=== PATIENT | female | born 1990 | race Caucasian/White ===

== ENCOUNTER 2017-03-05 12:26 | Emergency (ER) | payer MEDICAID, SELFPAY ==
[2017-03-05 13:08] VITALS: BP 106/64; PULSE 101; RESP 16; TEMP 36.9; O2SAT 98; BMI 18.8
[2017-03-05 13:29] LABS: UTC Influenza A Antigen Negative (Negative); UTC Influenza B Antigen Negative (Negative)
[2017-03-05 13:30] LABS: UTC Strep Screen (Rapid) Negative (Negative)
--- NOTE | 2017-03-05 14:18 | HMH.EDUTC ---
[facility] [place]ression: Influenza-like illness Disposition: Home, Self-Care Condition on Discharge: Good Instructions: DI for Influenza -- Adult Additional Instructions: * No sign of bacterial infection. Likely viral. Virus can take 7-14 days to run their course. Sound like the onset of the flu. False negative tests can happen initially. your exam is consistent with the flu but also with other upper resp symptoms. * Lots of rest * warm salt water gargles * warm fluids * sore throat lozenges * sleep elevated * humidifier/vaporizer * Increase fluids, water, gatorade, powerade, pedialyte if /toddler/child * Monitor Temp. Tylenol every 4 hours as needed no more then 5 times a day or 4000mg in 24 hours and/or ibuprofen every 6 hours as needed no more then 3200mg in 24 hours (as long as your primary care doctor has told you that it is ok to take both) for fever/aches/pain. ER if fever no less than 101 despite tylenol and Ibuprofen * You (or your child) are contagious until no fever, aches, chills x 24 hours without medication for symptoms. * * Per hospital policy, Your throat swab was sent for culture. Those results are typically sent to your primary care. Be sure to follow up in 2-3 days if no improvement so they can review those results and treat if necessary. If you don't have primary care, I recommend you get one but in the mean time, you will have to return to a walk in clinic. Follow up with primary care IMMEDIATELY for new or worsening symptoms, improvement followed by suddenly feeling worse OR no noticeable improvement over the next 48-72 hours. 911 for difficulty breathing Time of Disposition: 14:24 Medical Decision Making Vital Signs: 03/05/17 13:08 Temperature 98.4 F Temperature Source Oral Pulse Rate [Right Brachial] 101 H Respiratory Rate 16 Blood Pressure [Right Arm] 106/64 Blood Pressure Mean [Right Arm] 78 Blood Pressure Source [Right Arm] Automatic Cuff Blood Pressure Position [Right Arm] Supine 02 Sat by Pulse Oximetry 98 Oxygen Delivery Method Room Air - Lab Data Lab results reviewed: Yes: I reviewed the patient's lab results. Lab Results 03/05/17 12:49: Influenza Type A Ag Negative, Influenza Type B Ag Negative 03/05/17 13:25: Strep Scn Rapid Clinic Negative Orders (Tests/Meds): ORDERS Category Date Time Status Strep Screen Confirmation Stat Micro 03/05/17 13:25 Received - Quentin Inquiry Pt receiving controlled substance: No [facility] [place] - General Stated complaint: Body aches,hurts to breath Time Seen by Provider: 03/05/17 14:00 Mode of Arrival: Family Vehicle Source of Information: Patient Limitations: No Limitations Description of Symptoms (Recalled from Triage Doc. by RN): c/o bodyaches, pain with swallowing, and pain with breathing HEENT Symptoms (Recalled from RN notes): Yes (pain with swallowing) Resp Symptoms (Recalled from RN notes): Yes (pain with breathing) Skin Symptoms (Recalled from RN notes): No MS Symptoms (Recalled from RN notes): Yes (bodyaches) Functional Status (Recalled from RN notes): n/a - History of Present Illness Provider Complaint: c/o low grade fevre, bodyaches, rhinorrhea since yesterday. No known sick contacts. Has not had flu vaccine. No cough. Nyquil last night helped. - Related Data Allergies Allergy/AdvReac Type Severity Reaction Status Date / Time watermelon [WATERMELON] Allergy Unknown Unverified 02/08/17 15:39 - Worker's Comp Is this a Worker's Comp case?: No [facility] [place] History Medical History: Reports:: Asthma Denies:: Cancer, Diabetes Mellitus Type 1, Diabetes Mellitus Type 2, Hypertension, MRSA Comment: depression Amputation: No Fractures: No Comment: hernia, tubal ligation - *Social History Smoking Status: Never smoker Alcohol Intake: never - Psychiatric History Expresses thoughts of harming self/others: None Suicide Plan Description: No Plan ROS Obtained: Yes Systems reviewed as appropriate &
--- NOTE | 2017-03-05 14:21 | ED_ITS ---
[facility] [place] Disposition Clinical Impression: Influenza-like illness Disposition: Home, Self-Care Condition on Discharge: Good Instructions: DI for Influenza -- Adult Additional Instructions: * No sign of bacterial infection. Likely viral. Virus can take 7-14 days to run their course. Sound like the onset of the flu. False negative tests can happen initially. your exam is consistent with the flu but also with other upper resp symptoms. * Lots of rest * warm salt water gargles * warm fluids * sore throat lozenges * sleep elevated * humidifier/vaporizer * Increase fluids, water, gatorade, powerade, pedialyte if /toddler/child * Monitor Temp. Tylenol every 4 hours as needed no more then 5 times a day or 4000mg in 24 hours and/or ibuprofen every 6 hours as needed no more then 3200mg in 24 hours (as long as your primary care doctor has told you that it is ok to take both) for fever/aches/pain. ER if fever no less than 101 despite tylenol and Ibuprofen * You (or your child) are contagious until no fever, aches, chills x 24 hours without medication for symptoms. * * Per hospital policy, Your throat swab was sent for culture. Those results are typically sent to your primary care. Be sure to follow up in 2-3 days if no improvement so they can review those results and treat if necessary. If you don' t have primary care, I recommend you get one but in the mean time, you will have to return to a walk in clinic. Follow up with primary care IMMEDIATELY for new or worsening symptoms, improvement followed by suddenly feeling worse OR no noticeable improvement over the next 48-72 hours. 911 for difficulty breathing Time of Disposition: 14:24 Medical Decision Making Vital Signs: 03/05/17 13:08 Temperature 98.4 F Temperature Source Oral Pulse Rate [Right Brachial] 101 H Respiratory Rate 16 Blood Pressure [Right Arm] 106/64 Blood Pressure Mean [Right Arm] 78 Blood Pressure Source [Right Arm] Automatic Cuff Blood Pressure Position [Right Arm] Supine 02 Sat by Pulse Oximetry 98 Oxygen Delivery Method Room Air - Lab Data Lab results reviewed: Yes: I reviewed the patient's lab results. Lab Results 03/05/17 12:49: Influenza Type A Ag Negative, Influenza Type B Ag Negative 03/05/17 13:25: Strep Scn Rapid Clinic Negative Orders (Tests/Meds): ORDERS Category Date Time Status Strep Screen Confirmation Stat Micro 03/05/17 13:25 Received - Quentin Inquiry Pt receiving controlled substance: No [facility] [place] HPI - General Stated complaint: Body aches,hurts to breath Time Seen by Provider: 03/05/17 14:00 Mode of Arrival: Family Vehicle Source of Information: Patient Limitations: No Limitations Description of Symptoms (Recalled from Triage Doc. by RN): c/o bodyaches, pain with swallowing, and pain with breathing HEENT Symptoms (Recalled from RN notes): Yes (pain with swallowing) Resp Symptoms (Recalled from RN notes): Yes (pain with breathing) Skin Symptoms (Recalled from RN notes): No MS Symptoms (Recalled from RN notes): Yes (bodyaches) Functional Status (Recalled from RN notes): n/a - History of Present Illness Provider Complaint: c/o low grade fevre, bodyaches, rhinorrhea since yesterday. No known sick contacts. Has not had flu vaccine. No cough. Nyquil last night helped. - Related Data Allergies Allergy/AdvReac Type Severity Reaction Status Date / Time watermelon [WATERMELON] Allergy Unkno
[2017-03-05 14:57] VITALS: BP 106/64; PULSE 101; RESP 16; TEMP 36.9; O2SAT 98
== END 2017-03-05 14:59 | disposition home or self-care (01) ==
PROVIDERS: Emergency Provider Nurse Practitioner Family; Family Provider Physician Assistant
DX: J10.1 Influenza due to other identified influenza virus with other respiratory manifestations (principal)
CPT/HCPCS: 87804; 87880; 99202

== ENCOUNTER → 2017-09-20 11:51 | Outpatient (REF) | payer MEDICAID, SELFPAY ==
[2017-09-20 13:59] LABS: Basophils % 0.5 % (0.1-2.0); Eosinophils # 0.1 K/mm3 (0.0-0.4); Hematocrit 43.6 % (37.0-47.0); Hemoglobin 14.4 g/dL (12.2-16.2); Lymphocytes # 2.3 K/mm3 (0.7-4.5); Lymphocytes % 35.4 K/mm3 (10-50); Mean Corpuscular Hemoglobin 27.1 pg (27.0-31.2); Mean Platelet Volume 9.1 fl (7.4-10.4); Monocytes # 0.3 K/mm3 (0.1-1.0); Monocytes % 3.9 % (1.7-9.3); Neutrophils # 3.8 K/mm3 (1.8-7.8); Neutrophils % 58.2 % (37.0-80.0); Platelet Count 204 K/mm3 (142-424); Red Blood Count 5.32 M/mm3 (4.20-5.40); Red Cell Distribution Width 13.9 % (11.5-17.5); White Blood Count 6.5 K/mm3 (4.8-10.8)
[2017-09-20 16:09] LABS: Alanine Aminotransferase 22 U/L (12-78); Albumin Level 4.2 gm/dL (3.4-5.0); Albumin/Globulin Ratio 1.2 (1.1-1.8); Alkaline Phosphatase 70 U/L (46-116); Anion Gap 13.2 mEq/L (5-15); Aspartate Amino Transferase 12 U/L (15-37); Bilirubin,Total 0.7 mg/dL (0.2-1.0); Blood Urea Nitrogen 5 mg/dL (7-18); Calcium 9.6 mg/dL (8.5-10.1); Carbon Dioxide 27 mmol/L (21.0-32.0); Chloride 106 mmol/L (98-107); Chol/HDL Ratio 2.1 (1-3.5); Cholesterol 142 mg/dL (140-200); Creatinine,Serum 0.64 mg/dL (0.55-1.02); Estimated Glomerular Filt Rate 113 ml/min (>60); GFR (African American) 137 ML/MIN (>60); Globulin 3.6 gm/dl (1.3-3.2); Glucose 75 mg/dL (74-106); HDL Cholesterol 67 mg/dL (29-89); LDL Cholesterol 67 mg/dL (0-130); Potassium 4.2 mmoL/L (3.5-5.1); Sodium 142 mmol/L (136-145); T4 (Thyroxine) 8.8 ug/dl (4.7-13.3); Thyroid Stimulating Hormone 1.25 uIU/ml (0.358-3.740); Total Protein,Serum 7.8 gm/dL (6.4-8.2); Triglycerides 39 mg/dL (30-200); VLDL Cholesterol 8 mg/dL (0-40)
[2017-09-21 17:13] LABS: Vitamin D 25 Hydroxy 53.7 ng/mL (30.0-100.0)
== END ==
LOC: LAB 11:51
PROVIDERS: Visit Provider Nurse Practitioner Family
DX: R53.1 Weakness (principal); R53.83 Other fatigue; R11.2 Nausea with vomiting, unspecified; J30.1 Allergic rhinitis due to pollen
CPT/HCPCS: 80053; 80061; 82652; 84436; 84443; 85025

== ENCOUNTER → 2017-12-29 15:12 | Outpatient (CLI) | payer MEDICAID, SELFPAY ==
[2017-12-31 09:16] LABS: Hep A Ab, IgM Negative (Negative); Hepatitis B Core Antibody IgM Negative (Negative); Hepatitis B Surface Antigen Negative (Negative)
[2017-12-31 12:14] LABS: Hepatitis C Antibody 0.2 s/co ratio (0.0-0.9)
== END ==
PROVIDERS: Visit Provider Emergency Medicine
DX: Z20.5 Contact with and (suspected) exposure to viral hepatitis (principal)
CPT/HCPCS: 36415; 80074

== ENCOUNTER 2019-07-05 03:05 | Emergency (ER) | payer OTHER, SELFPAY ==
[2019-07-05 02:57] VITALS: BP 101/63; PULSE 101; RESP 13; TEMP 37; O2SAT 100; BMI 17.6
--- NOTE | 2019-07-05 03:08 | CT_ITS ---
PROCEDURE: CT ABDOMEN PELVIS W CON CLINICAL INDICATION: n/v/d Nausea, vomiting, diarrhea COMPARISON: ABDPELWW CT abdomen pelvis wo/w con from 07/08/2018 TECHNIQUE: IV Contrast: 75ML OPTIRAY 350 Oral Contrast none Axial images obtained with sagittal and coronal reformats. All CT scans at the facility use one or more dose reduction, viz: automated exposure control, ma/kV adjustment per patient size (including targeted exams where dose is matched to indication, i.e. head), or iterative reconstruction technique. FINDINGS: LOWER THORAX: No acute finding ABDOMEN & PELVIS: The liver, spleen, adrenal glands, pancreas, gallbladder, and kidneys have an unremarkable appearance. There is a small cortical hypodensity of the left kidney anteriorly may be due to small cyst. Fluid-filled small and large bowel loops are present with a few scattered air-fluid levels. No free air. The appendix is not clearly delineated. The the uterus is bulky with prominent hypodensity of the endometrium. There may be a small left ovarian cyst at 1.5 cm. There is a small amount fluid in the pelvis. No acute bony anomalies. IMPRESSION: 1. Fluid-filled small and large bowel loops with scattered air-fluid levels which may be due to enterocolitis or ileus and may also be seen with diarrhea disease. 2. Bulky uterus with prominent endometrium and a small amount fluid in the cul-de-sac. Consider ultrasound for further evaluation. Dictated by: Salva Noble MD 07/05/2019 06:25 Electronically signed by Slava Noble MD in [place] 07/05/2019 06:25
--- NOTE | 2019-07-05 03:08 | PC.NURSE ---
pt ambulated to the bathroom independently
--- NOTE | 2019-07-05 03:09 | CT_ITS ---
PROCEDURE: CT HEAD/BRAIN WO CON CLINICAL INDICATION: fall Head injury with pain, fall with injury and pain with nausea and vomiting COMPARISON: HDWO CT HEAD W/O CONTRAST from 02/13/2015 TECHNIQUE: Axial images obtained. All CT scans at the facility use one or more dose reduction, viz: automated exposure control, ma/kV adjustment per patient size (including targeted exams where dose is matched to indication, i.e. head), or iterative reconstruction technique. FINDINGS: No midline shift, mass effect, intracranial hemorrhage, hydrocephalus, or extra-axial fluid collection is evident. The calvarium has an unremarkable appearance. No mastoid effusion. Mild mucosal thickening is present in the left aspect of the sphenoid sinus IMPRESSION: No acute intracranial finding Dictated by: Slava Noble MD 07/05/2019 06:17 Electronically signed by Slava Noble MD in [place] 07/05/2019 06:17
--- NOTE | 2019-07-05 03:10 | CT_ITS ---
PROCEDURE: CT CERVICAL SPINE WO CON CLINICAL INDICATION: fell and hit head Neck pain following injury COMPARISON: No exams were available for comparison TECHNIQUE: Axial images obtained with sagittal and coronal reformats. All CT scans at the facility use one or more dose reduction, viz: automated exposure control, ma/kV adjustment per patient size (including targeted exams where dose is matched to indication, i.e. head), or iterative reconstruction technique. Axial spiral CT scanning performed of the cervical spine beginning at the base of the skull and continuing to the upper T-spine. 3-D multiplanar reconstruction with 3-D manipulation of volumetric data set in image rendering was completed by the radiologist and/or technologist with the supervision of the radiologist on independent workstation. FINDINGS: There is normal alignment. There is mild cervical curvature convex right. Degenerative disc disease is present at C5-C6. No acute fracture or dislocation. Lung apices are clear IMPRESSION: No acute finding Degenerative changes C5-C6 with cervical curvature convex right Dictated by: Slava Noble MD 07/05/2019 06:19 Electronically signed by Slava Noble MD in [place] 07/05/2019 06:19
[2019-07-05 03:20] LABS: Microscopic, Urine URINE MICROSCOPIC (MICROSCOPIC)
[2019-07-05 03:20] LABS: Basophils # 0.2 K/mm3 (0-0.2); Basophils % 0.6 % (0.1-2.0); Eosinophils # 0.4 K/mm3 (0.0-0.4); Eosinophils % 1.5 % (0.1-12.0); Hematocrit 46.4 % (37.0-47.0); Hemoglobin 15.6 g/dL (12.2-16.2); Lymphocytes # 2.9 K/mm3 (0.7-4.5); Lymphocytes % 10.5 % (10-50); Mean Corpuscular HGB Conc 33.7 g/dL (31.8-35.4); Mean Corpuscular Hemoglobin 28.4 pg (27.0-31.2); Mean Corpuscular Volume 84.1 fl (81-99); Mean Platelet Volume 9.4 fl (7.4-10.4); Monocytes # 1.4 K/mm3 (0.1-1.0); Monocytes % 5.1 % (1.7-9.3); Neutrophils # 23.1 K/mm3 (1.8-7.8); Neutrophils % 82.4 % (37.0-80.0); Platelet Count 274 K/mm3 (142-424); Red Blood Count 5.52 M/mm3 (4.20-5.40); Red Cell Distribution Width 13.3 % (11.5-17.5)
[2019-07-05 03:23] LABS: Appearance,Urine CLEAR (Clear); Bilirubin,Urine Negative (Negative); Blood, Urine Negative (Negative); Color,Urine YELLOW (Yellow); Glucose,Urine (UA) Negative (Negative); Ketones,Urine Negative (Negative); Leukocyte Esterase,Urine TRACE (Negative); Nitrate,Urine Negative (Negative); Protein,Urine Negative (Negative); Urobilinogen,Urine 0.2 EU/dl (0.2)
[2019-07-05 03:24] LABS: MANUAL DIFFERENTIAL MANUAL DIFFERENTIAL (MANUAL DIFF)
[2019-07-05 03:25] LABS: Chloride 103 mmol/L (98-107); Potassium 4.1 mmoL/L (3.5-5.1); Sodium 137 mmol/L (136-145)
[2019-07-05 03:27] LABS: Alanine Aminotransferase 19 U/L (12-78); Aspartate Amino Transferase 29 U/L (14-36); Bilirubin,Total 0.6 mg/dl (0.2-1.3); Blood Urea Nitrogen 16 mg/dl (7-17); Creatinine Clearance Estimated 91 mL/min (50-200); Estimated Glomerular Filt Rate 120 ml/min (>60); GFR (African American) 145 ML/MIN (>60)
[2019-07-05 03:27] LABS: Urine Pregnancy, HCG Qual. Negative (Negative)
[2019-07-05 03:28] LABS: Albumin Level 4.8 g/dl (3.5-5.0); Albumin/Globulin Ratio 1.5 (1.1-1.8); Alkaline Phosphatase 53 U/L (38-126); Anion Gap 13.1 mEq/L (5-15); Calcium 10.3 mg/dl (8.4-10.2); Carbon Dioxide 25 mmol/L (22.0-30.0); Globulin 3.2 g/dL (1.3-3.2); Glucose 122 mg/dl (74-100)
[2019-07-05 03:28] LABS: Bacteria,Urine 1+ /lpf; Mucus,Urine 1+ /lpf
[2019-07-05 03:51] LABS: Eosinophils % 2 % (0-3); Lymphocytes % 20 % (10-50); Monocytes % 1 % (2-9); Neutrophils % 77 % (42-76); Total Cells Counted 100
[2019-07-05 03:52] LABS: Platelet Estimate Normal; RBC Morphology Normal
[2019-07-05 04:04] LABS: Lactic Acid 1.2 mmol/L (0.7-2.1)
--- NOTE | 2019-07-05 04:36 | HMH.EDNVD ---
ED Disposition Clinical Impression: Vasovagal episode, Enteritis, SIRS (systemic inflammatory response syndrome) Disposition: Home, Self-Care Condition on Discharge: Good Instructions: DI for Diarrhea and Traveler's Diarrhea -- Adult Additional Instructions: fluids and see pcp for follow up Referrals: Navin Flowers MD [Primary Care Provider] - - Critical Care Critical Care Time: No Attestation: On 07/05/19, the high probability of a clinically significant, sudden or life threatening deterioration of the following system(s) required my full and direct attention, intervention and personal management. The time I documented below is in addition to time spent performing reported procedures but includes the following listed in this critical care notation. Medical Decision Making - Medical Records Medical records reviewed: Yes: I reviewed the patient's medical records. - Quentin Inquiry Pt receiving controlled substance: No Vital Signs: 07/05/19 02:57 Temperature 98.6 F Temperature Source Oral Pulse Rate [Left Radial] 101 H Respiratory Rate 13 Blood Pressure [Right Arm] 101/63 L Blood Pressure Mean [Right Arm] 75 Blood Pressure Source [Right Arm] Automatic Cuff Blood Pressure Position [Right Arm] Sitting 02 Sat by Pulse Oximetry 100 Oxygen Delivery Method Room Air - Lab Data Lab results reviewed: Yes: I reviewed the patient's lab results. Lab Results 07/05/19 02:45: WBC 28.0 H*, RBC 5.52 H, Hgb 15.6, Hct 46.4, MCV 84.1, MCH 28.4, MCHC 33.7, RDW 13.3, Plt Count 274, MPV 9.4, Neut % (Auto) 82.4 H, Lymph % (Auto) 10.5, Reeves % (Auto) 5.1, Eos % (Auto) 1.5, Baso % (Auto) 0.6, Neut # (Auto) 23.1 H, Lymph # (Auto) 2.9, Reeves # (Auto) 1.4 H, Eos # (Auto) 0.4, Baso # (Auto) 0.2, Total Counted 100, Neutrophils % (Manual) 77 H, Lymphocytes % (Manual) 20, Monocytes % (Manual) 1 L, Eosinophils % (Manual) 2, Platelet Estimate Normal, RBC Morphology Normal 07/05/19 02:45: Sodium 137, Potassium 4.1, Chloride 103, Carbon Dioxide 25, Anion Gap 13.1, BUN 16, Creatinine 0.60, Estimated Creat Clear 91, Estimated GFR 120, Est GFR ( Amer) 145, Glucose 122 H, Calcium 10.3 H, Total Bilirubin 0.6, AST 29, ALT 19, Alkaline Phosphatase 53, Total Protein 8.0, Albumin 4.8, Globulin 3.2, Albumin/Globulin Ratio 1.5 07/05/19 03:16: Urine Color Yellow, Urine Appearance Clear, Urine pH 6.0, Ur Specific [place] 1.020, Urine Protein Negative, Urine Glucose (UA) Negative, Urine Ketones Negative, Urine Blood Negative, Urine Nitrate Negative, Urine Bilirubin Negative, Urine Urobilinogen 0.2, Ur Leukocyte Esterase Trace, Urine WBC 3-5, Ur Squamous Epith Cells 5-10, Urine Bacteria 1+, Urine Mucus 1+ 07/05/19 03:16: Urine HCG, Qual Negative 07/05/19 03:43: Lactate 1.2 Result diagrams: 07/05/19 02:45 07/05/19 02:45 Orders (Tests/Meds): ED MEDICATIONS Generic Name Dose Route Start Last Admin Trade Name Freq PRN Reason Stop Dose Admin Sodium Chloride 1,000 mls @ 999 mls/hr 07/05/19 03:15 07/05/19 03:49 Sod Chlor 0.9% 1000ml Bag IV 07/05/19 04:15 999 mls/hr .Q1H1M ANICETO Administration Discontinued Medications Generic Name Dose Route Start Last Admin Trade Name Freq PRN Reason Stop Dose Admin Ondansetron HCl 4 mg 07/05/19 03:11 07/05/19 03:48 Zofran 4mg/2ml Vial IV 07/05/19 03:12 4 mg ONCE ONE Administration ORDERS Category Date Time Status CT abdomen pelvis w con Stat Cat Scan 07/05/19 03:[address] cervical spine wo con Stat Cat Scan 07/05/19 03:[address] head/brain wo con Stat Cat Scan 07/05/19 03:09 Ordered Rapid Influenza A&B Antigens Stat Lab 07/05/19 03:10 Ordered Strep Scrn Group A (Rapid) Stat Lab 07/05/19 03:10 Ordered Blood Culture Stat Micro 07/05/19 03:43 Received - CT Data CT Scan: Head, C-Spine, Abdomen, Pelvis Time Received: 04:[address] Reviewed: Yes: I have viewed the radiologist's interpretation Preliminary Findings: Abnormal (see reports ) - Reevaluation(s)
[2019-07-05 04:50] VITALS: BP 105/57; PULSE 89; RESP 15; TEMP 36.8; O2SAT 98
== END 2019-07-05 04:52 | disposition home or self-care (01) ==
PROVIDERS: Emergency Provider Emergency Medicine; PCP Internal Medicine Adolescent Medicine
DX: K52.9 Noninfective gastroenteritis and colitis, unspecified (principal); R65.10 Systemic inflammatory response syndrome (SIRS) of non-infectious origin without acute organ dysfunction; R42 Dizziness and giddiness; J45.909 Unspecified asthma, uncomplicated
CPT/HCPCS: 70450; 72125; 74177; 80053; 81001; 81025; 83605; 85007; 85025; 87040; 96365; 96375; 99283; J2405; Q9967

== ENCOUNTER 2019-08-04 00:30 | Emergency (ER) | payer OTHER, SELFPAY ==
[2019-08-04 00:39] VITALS: BP 119/78; PULSE 77; RESP 14; TEMP 36.8; O2SAT 100; BMI 17.4
--- NOTE | 2019-08-04 02:28 | HMH.EDGENADL ---
ED Disposition Clinical Impression: Acute allergic reaction Qualifiers: Encounter type: initial encounter Qualified Code(s): T78.40XA - Allergy, unspecified, initial encounter Disposition: Home, Self-Care Condition on Discharge: Fair Instructions: DI for Eye Allergic Reaction, DI for General Allergic Reactions Additional Instructions: Remove guinea pigs from the household and avoid exposure. Prednisone for 5 days. Take Benadryl 25 mg 4 times a day for 5 days. Use Pataday eyedrops daily for 5 days. Follow-up with your primary care doctor if not improving by Tuesday. Additional instructions for ALLERGIC REACTION: See your physician as soon as possible for further evaluation. Return immediately if severe intolerable rash or itching, trouble breathing, or faintness. Prescriptions: Olopatadine HCl [Pataday] 5 drp OP DAILY #5 ml Transmission Status: Pending to [facility] #[id number] predniSONE [Prednisone 20mg Tab] 20 mg PO BID #10 tab Transmission Status: Pending to [facility] #[id number] Referrals: Carlos Coles MD [Primary Care Provider] - - Critical Care Critical Care Time: No Attestation: On 08/04/19, the high probability of a clinically significant, sudden or life threatening deterioration of the following system(s) required my full and direct attention, intervention and personal management. The time I documented below is in addition to time spent performing reported procedures but includes the following listed in this critical care notation. Medical Decision Making - Quentin Inquiry Pt receiving controlled substance: No Vital Signs: 08/04/19 00:39 Temperature 98.3 F Temperature Source Oral Pulse Rate [Right] 77 Respiratory Rate 14 Blood Pressure [Right Arm] 119/78 Blood Pressure Mean [Right Arm] 91 Blood Pressure Source [Right Arm] Automatic Cuff Blood Pressure Position [Right Arm] Sitting 02 Sat by Pulse Oximetry 100 Oxygen Delivery Method Room Air General Adult HPI - General Chief complaint: Allergic Reaction Stated complaint: Allergic Reaction;eyes watering and itching Time Seen by Provider: 08/04/19 02:15 Mode of Arrival: Ambulatory Limitations: No Limitations Description of Symptoms (Recalled from ER Triage Doc. by RN): Pt states she was playing with guinea pigs tonight and her eyes got itchy and watery, pt states she took a Benadryl 2 hours ago with no relief. - History of Present Illness HPI narrative: Patient states that she got 2 new guinea pigs this evening and began having swelling, itching, redness, and watering of her eyes. No difficulty breathing, no hives. No previous similar reactions. She took 25 mg of Benadryl without improvement. - Related Data Home Medications Medication Instructions Recorded Confirmed Albuterol Sulfate [Albuterol 2.5 mg IH BID PRN 08/04/19 08/04/19 Sulfate 2.5mg/0.5ml Neb] Previous Rx's Medication Instructions Recorded albuterol sulfate 90 mcg/actuation 1 inh INHALATION Q4-6H PRN #1 each 07/26/19 breath activated powder inhaler Olopatadine HCl [Pataday] 5 drp OP DAILY #5 ml 08/04/19 predniSONE [Prednisone 20mg 20 mg PO BID #10 tab 08/04/19 Tab] Allergies Allergy/AdvReac Type Severity Reaction Status Date / Time watermelon [WATERMELON] Allergy Unknown Verified 07/26/19 13:11 [facility] History - Hepatitis A Screen Drug use history?: No High risk sexual behaviors?: No History of sexually transmitted infection?: No Currently employed?: No Childcare worker?: No Do you have indoor plumbing?: Yes Do you have electricity?: Yes Attestation statement:: This patient has been screened for Hepatitis A risk factors. I have reviewed the patient's past medical history: Yes Medical History: Reports:: Asthma, Depression Denies:: Cancer, Diabetes Mellitus Type 1, Diabetes Mellitus Type 2, Hypertension, MRSA Comment: depression Other Surgeries: Yes: Hernia Repair, Tubal Ligation, Other Amputation: No F
[2019-08-04 02:45] VITALS: BP 122/72; PULSE 74; RESP 16; TEMP 36.8; O2SAT 99
== END 2019-08-04 02:47 | disposition home or self-care (01) ==
PROVIDERS: Emergency Provider Emergency Medicine; PCP Emergency Medicine
DX: J30.81 Allergic rhinitis due to animal (cat) (dog) hair and dander (principal); J45.909 Unspecified asthma, uncomplicated
CPT/HCPCS: 96372; 99281

== ENCOUNTER 2019-08-12 12:24 | Emergency (ER) | payer OTHER, SELFPAY ==
[2019-08-12 12:24] VITALS: BP 110/74; PULSE 88; RESP 18; TEMP 36.6; O2SAT 98; BMI 16.6
--- NOTE | 2019-08-12 13:13 | HMH.EDHA ---
ED Disposition Clinical Impression: Migraine Disposition: Home, Self-Care Condition on Discharge: Good Instructions: DI for Migraine Referrals: Carlos Coles MD [Primary Care Provider] - - Critical Care Critical Care Time: No Attestation: On 08/12/19, the high probability of a clinically significant, sudden or life threatening deterioration of the following system(s) required my full and direct attention, intervention and personal management. The time I documented below is in addition to time spent performing reported procedures but includes the following listed in this critical care notation. Medical Decision Making - Medical Records Medical records reviewed: Yes: I reviewed the patient's medical records. - Quentin Inquiry Pt receiving controlled substance: No Vital Signs: 08/12/19 12:24 Temperature 98 F Temperature Source Oral Pulse Rate [Left Radial] 88 Respiratory Rate 18 Blood Pressure [Right Arm] 110/74 Blood Pressure Mean [Right Arm] 86 Blood Pressure Position [Right Arm] Sitting 02 Sat by Pulse Oximetry 98 Oxygen Delivery Method Room Air - Lab Data Lab results reviewed: Yes: I reviewed the patient's lab results. Orders (Tests/Meds): ED MEDICATIONS Discontinued Medications Generic Name Dose Route Start Last Admin Trade Name Freq PRN Reason Stop Dose Admin Dihydroergotamine Mesylate 1 mg 08/12/19 13:07 D.H.E. 45 1mg/Ml Amp IM 08/12/19 13:08 ONCE ONE Diphenhydramine HCl 50 mg 08/12/19 13:08 Benadryl 50mg/1ml Vial IM 08/12/19 13:09 ONCE ONE Ketorolac Tromethamine 60 mg 08/12/19 13:07 Toradol 60mg/2ml Vial IM 08/12/19 13:08 ONCE ONE Headache HPI - General Chief Complaint: Headache Stated Complaint: Vomiting due to migraine Time Seen by Provider: 08/12/19 13:00 Mode of Arrival: Ambulatory Source of Information: Patient Limitations: No Limitations Description of Symptoms (Recalled from ER Triage Doc. by RN): to ed per pvt car with c/o migraine headache starting this am. pt with hx of migraines, +nausea, +vomiting, +photophobia, +phonophobia. - History of Present Illness MD Complaint: migraine Onset (ago): day(s) Time: 13:00 Onset description: sudden Location: frontal Severity: moderate Severity scale (1-10): 5 Quality: throbbing, similar to previous headaches Relieving factors: rest, NSAIDs Exacerbating factors: exertion, sitting/standing, light Context: occurred at rest Associated symptoms: none Treatments prior to arrival: none - Related Data Home Medications Medication Instructions Recorded Confirmed Albuterol Sulfate [Albuterol 2.5 mg IH BID PRN 08/04/19 08/04/19 Sulfate 2.5mg/0.5ml Neb] Previous Rx's Medication Instructions Recorded albuterol sulfate 90 mcg/actuation 1 inh INHALATION Q4-6H PRN #1 each 07/26/19 breath activated powder inhaler Olopatadine HCl [Pataday] 5 drp OP DAILY #5 ml 08/04/19 predniSONE [Prednisone 20mg 20 mg PO BID #10 tab 08/04/19 Tab] Allergies Allergy/AdvReac Type Severity Reaction Status Date / Time watermelon [WATERMELON] Allergy Unknown Verified 07/26/19 13:11 [facility] History - Hepatitis A Screen Drug use history?: No High risk sexual behaviors?: No History of sexually transmitted infection?: No Currently employed?: No Childcare worker?: No Do you have indoor plumbing?: Yes Do you have electricity?: Yes Attestation statement:: This patient has been screened for Hepatitis A risk factors. Medical History: Reports:: Asthma, Depression Denies:: Cancer, Diabetes Mellitus Type 1, Diabetes Mellitus Type 2, Hypertension, MRSA Comment: depression Other Surgeries: Yes: Hernia Repair, Tubal Ligation, Other Amputation: No Fractures: No Comment: hernia, tubal ligation - Social History Smoking Status: Never smoker Alcohol Intake: never Substance Use Type: denies use Occupational Status: other Housing: other Household Members: other - Psychiatric Histo
[2019-08-12 14:14] VITALS: BP 105/74; PULSE 68; RESP 16; TEMP 36.6; O2SAT 98
== END 2019-08-12 14:16 | disposition home or self-care (01) ==
PROVIDERS: Emergency Provider Family Medicine; PCP Emergency Medicine
DX: G43.909 Migraine, unspecified, not intractable, without status migrainosus (principal); J45.909 Unspecified asthma, uncomplicated; F33.1 Major depressive disorder, recurrent, moderate
CPT/HCPCS: 96372; 99281; J1110

== ENCOUNTER 2019-09-03 16:33 | Emergency (ER) | payer OTHER, SELFPAY ==
[2019-09-03 16:53] VITALS: BP 128/68; PULSE 83; RESP 20; TEMP 36.8; O2SAT 100; BMI 18.5
--- NOTE | 2019-09-03 17:03 | HMH.EDUTC ---
[facility] [place] Disposition Clinical Impression: Sinusitis Qualifiers: Sinusitis location: unspecified location Chronicity: acute Recurrence: non-recurrent Qualified Code(s): J01.90 - Acute sinusitis, unspecified Disposition: Home, Self-Care Condition on Discharge: Good Instructions: Sinusitis, DI for Sinusitis Additional Instructions: Drink plenty of fluids. Take tylenol or ibuprofen for pain or fever. Take the medications as directed. Follow up with your regular doctor. GO TO THE ER FOR ANY WORSENING SYMPTOMS Self-quarantine until the results of your COVID test is back. Prescriptions: methylPREDNISolone [Medrol] 4 mg PO DIRECTED 6 Days #21 tab.ds.pk Transmission Status: Received by [facility] #[id number] Benzonatate [Tessalon Perle 100mg Cap] 100 mg PO TIDP PRN #30 cap PRN Reason: Cough Transmission Status: Received by [facility] # Azithromycin [Z-Pj 250mg Tab*] 250 mg PO UD DOSE PK #6 tab Transmission Status: Received by [facility] # Referrals: Carlos Coles MD [Primary Care Provider] - Forms: Work/School Release Time of Disposition: 17:16 Medical Decision Making - Medical Records Medical records reviewed: No: I reviewed the patient's medical records. - Quentin Inquiry Pt receiving controlled substance: No Vital Signs: 09/03/19 16:53 09/03/19 17:18 Temperature 98.2 F 98.2 F Temperature Source Oral Pulse Rate 83 Pulse Rate [Right Brachial] 83 Respiratory Rate 20 20 Blood Pressure 128/68 Blood Pressure [Right Arm] 128/68 Blood Pressure Mean [Right Arm] 88 Blood Pressure Source [Right Arm] Automatic Cuff Blood Pressure Position [Right Arm] Sitting 02 Sat by Pulse Oximetry 100 Oxygen Delivery Method Room Air - Lab Data Lab results reviewed: Yes: I reviewed the patient's lab results. [facility] HPI - General Stated complaint: Stoped up nose Time Seen by Provider: 09/03/19 17:03 Mode of Arrival: Ambulatory Source of Information: Patient Limitations: No Limitations Description of Symptoms (Recalled from Triage Doc. by RN): PATIENT C/O NASAL CONGESTION WITH YELLOW DISCHARGE SINCE YESTERDAY HEENT Symptoms (Recalled from RN notes): Yes Resp Symptoms (Recalled from RN notes): No Skin Symptoms (Recalled from RN notes): No MS Symptoms (Recalled from RN notes): No Functional Status (Recalled from RN notes): WNL - History of Present Illness Provider Complaint: She reports that she has had nasal congestion, yellowish nasal drainage and she has felt very bad since yesterday. She denies any known exposure to COVID-19, but she does work at an assisted living facility. - Related Data Home Medications Medication Instructions Recorded Confirmed Albuterol Sulfate [Albuterol 2.5 mg IH BID PRN 08/04/19 08/20/19 Sulfate 2.5mg/0.5ml Neb] hydroxyzine HCl 25 mg tablet 25 mg PO BID tab 08/20/19 08/20/19 Previous Rx's Medication Instructions Recorded albuterol sulfate 90 mcg/actuation 1 inh INHALATION Q4-6H PRN #1 each 07/26/19 breath activated powder inhaler sumatriptan succinate 100 mg tablet 100 mg PO ONCE PRN #10 tab 08/20/19 Azithromycin [Z-Pj 250mg Tab*] 250 mg PO UD DOSE PK #6 tab 09/03/19 Benzonatate [Tessalon Perle 100mg 100 mg PO TIDP PRN #30 cap 09/03/19 Cap] methylPREDNISolone [Medrol] 4 mg PO DIRECTED 6 Days #21 09/03/19 tab.ds.pk Allergies Allergy/AdvReac Type Severity Reaction Status Date / Time watermelon [WATERMELON] Allergy Unknown Verified 08/20/19 13:20 - Worker's Comp Is this a Worker's Comp case?: No [facility] History - Hepatitis A Screen Drug use history?: No High risk sexual behaviors?: No History of sexually transmitted infection?: No Currently employed?: No Childcare worker?: No Do you have indoor plumbing?: Yes Do you have electricity?: Yes Attestation statement:: This patient has been screened for Hepatitis A risk factors. I have reviewed the patient's past medical history: Yes Med
[2019-09-03 17:18] VITALS: BP 128/68; PULSE 83; RESP 20; TEMP 36.8; O2SAT 100
== END 2019-09-03 17:27 | disposition home or self-care (01) ==
PROVIDERS: Emergency Provider Nurse Practitioner Family; PCP Emergency Medicine
DX: J01.90 Acute sinusitis, unspecified (principal); J45.909 Unspecified asthma, uncomplicated; F33.1 Major depressive disorder, recurrent, moderate; Z79.899 Other long term (current) drug therapy
CPT/HCPCS: 99201

== ENCOUNTER 2019-12-08 09:52 | Emergency (ER) | payer OTHER, SELFPAY ==
[2019-12-08 10:04] VITALS: BP 107/69; PULSE 76; RESP 19; TEMP 36.6; O2SAT 99; BMI 16.0
--- NOTE | 2019-12-08 10:23 | HMH.EDUTC ---
[facility] [place] Disposition Clinical Impression: Otitis media Qualifiers: Otitis media type: unspecified Laterality: left Qualified Code(s): H66.92 - Otitis media, unspecified, left ear FB ear Qualifiers: Encounter type: initial encounter Laterality: left Qualified Code(s): T16.2XXA - Foreign body in left ear, initial encounter Disposition: Home, Self-Care Condition on Discharge: Good Instructions: DI for Removal of Foreign Body From Ear Additional Instructions: Take medication as prescribed *Follow up with Family Doctor or ENT if no improvement or any worsening of symptoms Return if needed Straight to ER if any life threatening symptoms Prescriptions: Amoxicillin [Amoxicillin 500mg Cap] 500 mg PO TID #30 cap Transmission Status: Pending to [facility] #[id number] Referrals: Carlos Coles MD [Primary Care Provider] - As needed Houston Berrios MD [Staff Physician] - Anum Carrington MD [Consulting Physician] - Time of Disposition: 10:41 Medical Decision Making - Quentin Inquiry Pt receiving controlled substance: No Quentin was queried for this patient: No Vital Signs: 12/08/19 10:04 Temperature 97.8 F Temperature Source Oral Pulse Rate [Right Brachial] 76 Respiratory Rate 19 Blood Pressure [Right Arm] 107/69 L Blood Pressure Mean [Right Arm] 81 02 Sat by Pulse Oximetry 99 Medical Decision Narrative: Small bug removed from left ear with irrigation, TM/canal red bug noted floating in irrigation water [facility] [place] HPI - General Stated complaint: Possible bug in L ear Time Seen by Provider: 12/08/19 10:23 Mode of Arrival: Family Vehicle Source of Information: Patient Description of Symptoms (Recalled from Triage Doc. by RN): Pt states she may have bug in left ear HEENT Symptoms (Recalled from RN notes): Yes Resp Symptoms (Recalled from RN notes): No Skin Symptoms (Recalled from RN notes): No MS Symptoms (Recalled from RN notes): No Functional Status (Recalled from RN notes): wnl - History of Present Illness Provider Complaint: Patient state that she has been having pain in her left ear and feels like there is something in there States that today it was bothering her more so she came in to see if she could get her ear checked and if there was a bug in there get it removed - Related Data Home Medications Medication Instructions Recorded Confirmed Albuterol Sulfate [Albuterol 2.5 mg IH BID PRN 08/04/19 11/22/19 Sulfate 2.5mg/0.5ml Neb] hydroxyzine HCl 25 mg tablet 25 mg PO BID tab 08/20/19 11/22/19 Previous Rx's Medication Instructions Recorded albuterol sulfate 90 mcg/actuation 1 inh INHALATION Q4-6H PRN #1 each 07/26/19 breath activated powder inhaler sumatriptan succinate 100 mg tablet 100 mg PO ONCE PRN #10 tab 08/20/19 amoxicillin 875 mg-potassium 1 tab PO BID 10 Days #20 tab 11/15/19 clavulanate 125 mg tablet prednisone 20 mg tablet 20 mg PO BID #10 tab 11/15/19 cetirizine 10 mg capsule 10 mg PO DAILY #30 cap 11/22/19 Amoxicillin [Amoxicillin 500mg 500 mg PO TID #30 cap 12/08/19 Cap] Allergies Allergy/AdvReac Type Severity Reaction Status Date / Time watermelon [WATERMELON] Allergy Unknown Verified 11/22/19 13:04 - Worker's Comp Is this a Worker's Comp case?: No [facility] History - Hepatitis A Screen Drug use history?: No High risk sexual behaviors?: No History of sexually transmitted infection?: No Currently employed?: No Childcare worker?: No Do you have indoor plumbing?: Yes Do you have electricity?: Yes Attestation statement:: This patient has been screened for Hepatitis A risk factors. I have reviewed the patient's past medical history: Yes Medical History: Reports:: Asthma, Depression Denies:: Cancer, Diabetes Mellitus Type 1, Diabetes Mellitus Type 2, Hypertension, MRSA Comment: depression Other Surgeries: Yes: Hernia Repair, Tubal Ligation, Other Amputation: No Fractures: No Comment: hernia, tubal ligation - Social History Smoking Status:
[2019-12-08 10:54] VITALS: BP 107/69; PULSE 76; RESP 19; TEMP 36.6; O2SAT 99
== END 2019-12-08 10:55 | disposition home or self-care (01) ==
PROVIDERS: Emergency Provider Nurse Practitioner; PCP Emergency Medicine
DX: T16.2XXA Foreign body in left ear, initial encounter (principal); H66.92 Otitis media, unspecified, left ear; J45.909 Unspecified asthma, uncomplicated; F33.1 Major depressive disorder, recurrent, moderate
CPT/HCPCS: 69200; 99201

== ENCOUNTER 2020-03-19 22:51 | Emergency (ER) | payer OTHER, SELFPAY ==
[2020-03-19 22:52] VITALS: BP 114/80; PULSE 123; RESP 16; TEMP 36.5; O2SAT 95; BMI 15.6
--- NOTE | 2020-03-19 23:20 | XR_ITS ---
PROCEDURE: XR CHEST 2V CLINICAL HISTORY: soa Shortness of breath COMPARISON: CR CXR CHEST(2 VIEWS-NOT PORTABLE) from 05/25/2014 CR CXR CHEST(2 VIEWS-NOT PORTABLE) from 01/01/2015 CR CXR CHEST(2 VIEWS-NOT PORTABLE) from 06/07/2015 FINDINGS: The cardiomediastinal silhouette and pulmonary vascularity are within normal limits. The lungs are clear without infiltrates, suspicious nodules, or pleural effusions. Small nodular opacity is present in the anterior clear space unchanged and may be due to a granuloma. No acute bony findings. IMPRESSION: No acute findings. Dictated by: Slava Noble MD 03/20/2020 05:42 Slava Noble MD in [place] 03/20/2020 05:42
[2020-03-19 23:28] LABS: Basophils % 0.5 % (0.1-2.0); Eosinophils # 0.1 K/mm3 (0.0-0.4); Eosinophils % 1.4 % (0.1-12.0); Hematocrit 45.9 % (37.0-47.0); Hemoglobin 15.7 g/dL (12.2-16.2); Lymphocytes # 2.7 K/mm3 (0.7-4.5); Mean Corpuscular HGB Conc 34.2 g/dL (31.8-35.4); Mean Corpuscular Hemoglobin 28.3 pg (27.0-31.2); Mean Corpuscular Volume 82.8 fl (81-99); Mean Platelet Volume 8.6 fl (7.4-10.4); Monocytes # 0.3 K/mm3 (0.1-1.0); Monocytes % 3.6 % (1.7-9.3); Neutrophils # 4.8 K/mm3 (1.8-7.8); Neutrophils % 60.5 % (37.0-80.0); Platelet Count 213 K/mm3 (142-424); Red Blood Count 5.55 M/mm3 (4.20-5.40); Red Cell Distribution Width 13.2 % (11.5-17.5)
[2020-03-19 23:35] LABS: Alanine Aminotransferase 15 U/L (12-78); Albumin Level 4.6 g/dl (3.5-5.0); Albumin/Globulin Ratio 1.4 (1.1-1.8); Alkaline Phosphatase 51 U/L (38-126); Anion Gap 13.6 mEq/L (5-15); Aspartate Amino Transferase 22 U/L (14-36); Bilirubin,Total 0.9 mg/dl (0.2-1.3); Blood Urea Nitrogen 13 mg/dl (7-17); Calcium 9.7 mg/dl (8.4-10.2); Carbon Dioxide 25 mmol/L (22.0-30.0); Chloride 103 mmol/L (98-107); Creatinine Clearance Estimated 60 mL/min (50-200); Estimated Glomerular Filt Rate 85 ml/min (>60); GFR (African American) 103 ML/MIN (>60); Globulin 3.3 g/dL (1.3-3.2); Glucose 104 mg/dl (74-100); Potassium 3.6 mmoL/L (3.5-5.1); Sodium 138 mmol/L (136-145); Total Protein,Serum 7.9 g/dl (6.3-8.2)
[2020-03-20 00:02] LABS: Procalcitonin < 0.030 ng/mL (0.0-2.0)
[2020-03-20 00:03] LABS: Erythrocyte Sedimentation Rate 6 mm/hr (0-20)
--- NOTE | 2020-03-20 00:08 | HMH.EDALLER ---
ED Disposition Clinical Impression: Acute allergic reaction Qualifiers: Encounter type: initial encounter Qualified Code(s): T78.40XA - Allergy, unspecified, initial encounter Disposition: Home, Self-Care Condition on Discharge: Good Instructions: DI for Shortness of Breath Additional Instructions: fluids and see pcp for follow up Prescriptions: predniSONE [Prednisone 20mg Tab] 20 mg PO BID #10 tab Transmission Status: Pending to [facility] #[id number] Referrals: Carlos Coles MD [Primary Care Provider] - - Critical Care Critical Care Time: No Attestation: On 03/19/20, the high probability of a clinically significant, sudden or life threatening deterioration of the following system(s) required my full and direct attention, intervention and personal management. The time I documented below is in addition to time spent performing reported procedures but includes the following listed in this critical care notation. Medical Decision Making - Medical Records Medical records reviewed: Yes: I reviewed the patient's medical records. - Quentin Inquiry Pt receiving controlled substance: No Vital Signs: 03/19/20 22:52 Temperature 97.7 F Temperature Source Oral Pulse Rate [Right] 123 H Respiratory Rate 16 Blood Pressure [Right Arm] 114/80 Blood Pressure Mean [Right Arm] 91 02 Sat by Pulse Oximetry 95 - Lab Data Lab results reviewed: Yes: I reviewed the patient's lab results. Lab Results 03/19/20 23:20: WBC 8.0, RBC 5.55 H, Hgb 15.7, Hct 45.9, MCV 82.8, MCH 28.3, MCHC 34.2, RDW 13.2, Plt Count 213, MPV 8.6, Neut % (Auto) 60.5, Lymph % (Auto) 34.0, Hill % (Auto) 3.6, Eos % (Auto) 1.4, Baso % (Auto) 0.5, Neut # (Auto) 4.8, Lymph # (Auto) 2.7, Hill # (Auto) 0.3, Eos # (Auto) 0.1, Baso # (Auto) 0.0, ESR 6 03/19/20 23:20: Sodium 138, Potassium 3.6, Chloride 103, Carbon Dioxide 25, Anion Gap 13.6, BUN 13, Creatinine 0.80, Estimated Creat Clear 60, Estimated GFR 85, Est GFR ( Amer) 103, Glucose 104 H, Calcium 9.7, Total Bilirubin 0.9, AST 22, ALT 15, Alkaline Phosphatase 51, C-Reactive Protein < 0.3, Total Protein 7.9, Albumin 4.6, Globulin 3.3 H, Albumin/Globulin Ratio 1.4, Procalcitonin < 0.030 Result diagrams: 03/19/20 23:20 03/19/20 23:20 Orders (Tests/Meds): ED MEDICATIONS Generic Name Dose Route Start Last Admin Trade Name Freq PRN Reason Stop Dose Admin Sodium Chloride 1,000 mls @ 999 mls/hr 03/19/20 23:15 03/19/20 23:12 Sod Chlor 0.9% 1000ml Bag IV 03/20/20 00:15 999 mls/hr .Q1H1M ANICETO Administration Levalbuterol HCl 0.63 mg 03/19/20 23:07 Levalbuterol 0.63mg/3ml Neb IH 04/18/20 23:06 TIDP PRN Shortness Of Breath Sodium Chloride 8 ml 03/19/20 23:07 Sodium Chloride 0.9% 10ml Vial IV 04/18/20 23:06 NEEDED PRN dilute pepcid Discontinued Medications Generic Name Dose Route Start Last Admin Trade Name Freq PRN Reason Stop Dose Admin Diphenhydramine HCl 25 mg 03/19/20 23:07 03/19/20 23:11 Diphenhydramine 50mg/Ml Vial IV 03/19/20 23:08 25 mg ONCE ONE Administration Famotidine 20 mg 03/19/20 23:07 03/19/20 23:11 Famotidine 20mg/2ml Vial IV 03/19/20 23:08 20 mg ONCE ONE Administration ORDERS Category Date Time Status Chest XR 2 view (NOT portable) [XR chest 2V] Stat Exams 03/19/20 23:20 Taken - Radiology Data #1 Image(s): Chest Image Reviewed: Yes I reviewed the patient's radiology image Preliminary Findings: Normal/NAD - Reevaluation(s) Time: 00:28 Reevaluation #1: improved Medical Decision Narrative: allergic reaction doing well with treatment Allergic React/Insect Bite HPI - General Chief complaint: Shortness of Breath/Dyspnea Stated complaint: SOB,Cough Time Seen by Provider: 01/27/21 23:20 Mode of Arrival - ED Triage: Ambulatory Source of Information: Patient, Spouse, Medical Record Limitations: No Limitations - History of Present Illness HPI narrative: ruma
[2020-03-20 00:17] LABS: C-Reactive Protein < 0.3 mg/L (0-4)
[2020-03-20 00:32] VITALS: BP 114/82; PULSE 100; RESP 14; TEMP 36.6; O2SAT 98
== END 2020-03-20 00:35 | disposition home or self-care (01) ==
PROVIDERS: Emergency Provider Emergency Medicine; PCP Emergency Medicine
DX: J45.901 Unspecified asthma with (acute) exacerbation (principal); T78.40XA Allergy, unspecified, initial encounter; F33.1 Major depressive disorder, recurrent, moderate
CPT/HCPCS: 71046; 80053; 84145; 85025; 85651; 86140; 99282

== ENCOUNTER 2020-05-22 17:52 | Emergency (ER) | payer OTHER, SELFPAY ==
[2020-05-22 17:59] VITALS: BP 106/70; PULSE 65; RESP 16; O2SAT 100; BMI 18.5
--- NOTE | 2020-05-22 18:02 | XR_ITS ---
PROCEDURE: XR THORACIC SPINE 2V CLINICAL INDICATION: fall COMPARISON: No exams were available for comparison FINDINGS: No acute fractures or listhesis. Bone density is within normal limits. Normal alignment of the thoracic spine is noted. Paravertebral soft tissues are unremarkable. IMPRESSION: No acute findings. Dictated by: Nova Mendoza 05/23/2020 10:24 Nova Mendoza in [facility] 05/23/2020 10:24
--- NOTE | 2020-05-22 18:02 | XR_ITS ---
PROCEDURE: XR CERVICAL SPINE 3V CLINICAL INDICATION: fall COMPARISON: No exams were available for comparison FINDINGS: The cervical spine alignment is within normal limits without evidence of acute fractures or traumatic subluxation. Bone density is normal. The C1-2 alignment is within normal limits. Prevertebral soft tissues and the visualized lung apices are clear IMPRESSION: No acute fractures or traumatic subluxation. Dictated by: Nova Mendoza 05/23/2020 10:21 Nova Mendoza in [facility] 05/23/2020 10:21
--- NOTE | 2020-05-22 18:31 | HMH.EDUTC ---
[facility] [place] Disposition Clinical Impression: Neck pain Fall Qualifiers: Encounter type: initial encounter Qualified Code(s): W19.XXXA - Unspecified fall, initial encounter Thoracic back pain Qualifiers: Chronicity: acute Back pain laterality: midline Qualified Code(s): M54.6 - Pain in thoracic spine Disposition: Home, Self-Care Condition on Discharge: Good Instructions: DI for Thoracic Back Pain Additional Instructions: Rest. Try not to be bending or twisting very much for the next few days. Take ibuprofen for pain. I sent in a prescription to your pharmacy. Take the muscle relaxers (cyclobenzaprine-flexeril) as directed. They will make you drowsy, so don't drive or operate heavy machinery after taking them. Follow up with your regular doctor. GO TO THE ER FOR ANY WORSENING SYMPTOMS Prescriptions: Ibuprofen [Ibuprofen 400mg Tablet] 400 mg PO Q6HP PRN #30 tab PRN Reason: Moderate Pain Transmission Status: Received by [facility] #[id number] Cyclobenzaprine HCl [Cyclobenzaprine 5mg Tab*] 5 mg PO BIDP PRN #30 tab PRN Reason: Muscle Spasm Transmission Status: Received by [facility] #[id number] Referrals: Carlos Coles MD [Primary Care Provider] - Time of Disposition: 18:45 Medical Decision Making - Medical Records Medical records reviewed: No: I reviewed the patient's medical records. - Quentin Inquiry Pt receiving controlled substance: No Vital Signs: 05/22/20 17:59 05/22/20 18:50 Temperature 98 F Temperature Source Oral Pulse Rate 60 Pulse Rate [Right] 65 Respiratory Rate 16 16 Blood Pressure 106/70 L Blood Pressure [Right Radial Artery] 106/70 L Blood Pressure Mean [Right Radial Artery] 82 Blood Pressure Source [Right Radial Artery] Automatic Cuff Blood Pressure Position Sitting Blood Pressure Position [Right Radial Artery] Sitting 02 Sat by Pulse Oximetry 100 Oxygen Delivery Method Room Air Room Air Orders (Tests/Meds): ORDERS Category Date Time Status XR cervical spine 3V Stat Exams 05/22/20 18:02 Taken XR thoracic spine 2V Stat Exams 05/22/20 18:02 Taken - Radiology Data #1 Image(s): C-Spine Image Reviewed: Yes I reviewed the patient's radiology image Preliminary Findings: No Fracture Seen #2 Image(s): T-Spine Image Reviewed: Yes I reviewed the patient's radiology image Preliminary Findings: No Fracture Seen [facility] [place] HPI - General Stated complaint: AO 05-22-20 Fell off porch - hurt back Time Seen by Provider: 05/22/20 18:31 Mode of Arrival: Ambulatory Source of Information: Patient Limitations: No Limitations Description of Symptoms (Recalled from Triage Doc. by RN): pt advises she fell this morning on her porch and is c/o pain in her upper back and neck HEENT Symptoms (Recalled from RN notes): No Resp Symptoms (Recalled from RN notes): No Skin Symptoms (Recalled from RN notes): No MS Symptoms (Recalled from RN notes): Yes Functional Status (Recalled from RN notes): na - History of Present Illness Provider Complaint: She states that she fell backwards on her porch this morning and landed on her upper back. Since then she has had upper back pain and neck pain. She denies any numbness or tingling of her extremities. She denies any head ache or loss of conciousness. - Related Data Previous Rx's Medication Instructions Recorded sumatriptan succinate 100 mg tablet 100 mg PO ONCE PRN #10 tab 08/20/19 albuterol sulfate 90 mcg/actuation 1 inh INHALATION Q4-6H PRN #1 each 02/01/20 breath activated powder inhaler Cyclobenzaprine HCl 5 mg PO BIDP PRN #30 tab 05/22/20 [Cyclobenzaprine 5mg Tab*] Ibuprofen [Ibuprofen 400mg 400 mg PO Q6HP PRN #30 tab 05/22/20 Tablet] Allergies Allergy/AdvReac Type Severity Reaction Status Date / Time watermelon [WATERMELON] Allergy Unknown Verified 05/12/20 13:28 - Worker's Comp Is this a Worker's Comp case?: No [facility] History - Hepatitis A Screen Drug use history?: No
[2020-05-22 18:50] VITALS: BP 106/70; PULSE 60; RESP 16; TEMP 36.6; O2SAT 98
== END 2020-05-22 18:50 | disposition home or self-care (01) ==
PROVIDERS: Emergency Provider Nurse Practitioner Family; PCP Emergency Medicine
DX: M54.2 Cervicalgia (principal); M54.6 Pain in thoracic spine; W01.0XXA Fall on same level from slipping, tripping and stumbling without subsequent striking against object, initial encounter; Y92.019 Unspecified place in single-family (private) house as the place of occurrence of the external cause; J45.909 Unspecified asthma, uncomplicated; F33.1 Major depressive disorder, recurrent, moderate; Z79.899 Other long term (current) drug therapy
CPT/HCPCS: 72040; 72070; 99202; G0463

== ENCOUNTER 2020-07-23 12:00 | Emergency (ER) | payer OTHER, SELFPAY ==
[2020-07-23 12:55] VITALS: BP 109/55; PULSE 94; RESP 20; TEMP 36.6; O2SAT 100; BMI 17.0
--- NOTE | 2020-07-23 13:16 | HMH.EDUTC ---
[facility] [place] Clinical Impression: Strep throat Disposition: Home, Self-Care Condition on Discharge: Good Instructions: DI for Strep Throat, Strep Throat, Amoxicillin Additional Instructions: *If you did not take Penicillin shot or was unable to, start taking antibiotic immediately and make sure that you take it for the FULL length of time although you should start to feel better in 24-48 hours *change toothbrush and toothpaste 24-48 hours after starting to take antibiotics so you do not reinfect yourself Monitor Temp. Tylenol and/or Ibuprofen as needed. ER if fever is no less than 101 despite alternating Tylenol and Ibuprofen * Encourage fluids, water, Gatorade, powerade, pedialyte if /toddler/or child *Cold fluids, popsicles and ice cream may feel good on his throat *Monitor Temp, Over the counter Motrin or Tylenol as directed/as needed Tylenol every 4 hours and Motrin every 6 hours (as long as your family doctor has told you that you can take it) for fever or pain. and straight to ER if unable to lower temp less than 101.0 after medication given *Warm salt water gargles may help to soothe the throat *Throat Lozenges *Warm fluids like tea with honey may help to soothe the throat *Sleep elevated *Humidifier/Vaporizer Follow up IMMEDIATELY for new or worsening symptoms or no Noticeable improvement over the next 48-72 hours. 911 for difficulty breathing or swallowing Prescriptions: Amoxicillin [Amoxicillin 400MG/5ML Oral Susp.] 500 mg PO BID 10 Days #127 susp.recon Transmission Status: Pending to [facility] #[id number] Referrals: Carlos Coles MD [Primary Care Provider] - As needed Time of Disposition: 13:23 Medical Decision Making - Quentin Inquiry Pt receiving controlled substance: No Quentin was queried for this patient: No Vital Signs: 07/23/20 12:55 Temperature 98 F Temperature Source Tympanic Pulse Rate [Right] 94 H Respiratory Rate 20 Blood Pressure [Right Arm] 109/55 L Blood Pressure Mean [Right Arm] 73 02 Sat by Pulse Oximetry 100 - Lab Data Lab results reviewed: Yes: I reviewed the patient's lab results. [facility] [place] HPI - General Stated complaint: sore throat, headache, muscle pain Time Seen by Provider: 07/23/20 13:16 Mode of Arrival: Ambulatory Source of Information: Patient Limitations: No Limitations Description of Symptoms (Recalled from Triage Doc. by RN): pt c/o sore throat, body aches and ear pain. states her son has strep. HEENT Symptoms (Recalled from RN notes): Yes (sore throat and ear aches) Resp Symptoms (Recalled from RN notes): No Skin Symptoms (Recalled from RN notes): No MS Symptoms (Recalled from RN notes): No Functional Status (Recalled from RN notes): na - History of Present Illness Provider Complaint: Patient states that she has been having sore throat, pain in her ears, body aches and headache State that her son was recently dx with strep throat and her daughter is also having similar symptoms - Related Data Previous Rx's Medication Instructions Recorded sumatriptan succinate 100 mg tablet 100 mg PO ONCE PRN #10 tab 08/20/19 albuterol sulfate 90 mcg/actuation 1 inh INHALATION Q4-6H PRN #1 each 02/01/20 breath activated powder inhaler fluticasone 250 mcg-salmeterol 50 1 inh INHALATION BID #60 each 06/25/20 mcg/dose blistr powdr for inhalation montelukast 10 mg tablet 10 mg PO QDAY 90 Days #90 tab 06/25/20 sertraline 50 mg tablet 50 mg PO DAILY #30 tab 06/25/20 ubrogepant 100 mg tablet 100 mg PO ONCE PRN #10 tab 07/11/20 Amoxicillin [Amoxicillin 400MG/5ML 500 mg PO BID 10 Days #127 07/23/20 Oral Susp.] susp.recon Allergies Allergy/AdvReac Type Severity Reaction Status Date / Time watermelon [WATERMELON] Allergy Unknown Verified 07/23/20 13:14 - Worker's Comp Is this a Worker's Comp case?: No [facility] History - Hepatitis A Screen Drug use history?: No High risk sexual behaviors?: No History of sexually transmitted infection?: No C
[2020-07-23 13:24] VITALS: BP 000/00; PULSE 91; RESP 20; TEMP 36.6
[2020-07-23 13:24] LABS: UTC Strep Screen (Rapid) Positive (Negative)
== END 2020-07-23 13:31 | disposition home or self-care (01) ==
PROVIDERS: Emergency Provider Nurse Practitioner; PCP Emergency Medicine
DX: J02.0 Streptococcal pharyngitis (principal)
CPT/HCPCS: 87880; 99202; G0463

== ENCOUNTER → 2020-08-04 14:43 | Outpatient (CLI) | payer OTHER, SELFPAY ==
--- NOTE | 2020-08-04 15:39 | PC.NURSE ---
PFT completed without incident. Albuterol 0.083% given via [facility] per written protocol, Pt tolerated tx well.
== END ==
PROVIDERS: PCP Emergency Medicine; Visit Provider Physician Assistant
DX: J45.901 Unspecified asthma with (acute) exacerbation (principal)
CPT/HCPCS: 94060; 94618; 94726; 94729

== ENCOUNTER → 2020-11-10 12:02 | Outpatient (CLI) | payer OTHER, SELFPAY | PROVIDERS: PCP Emergency Medicine; Visit Provider Nurse Practitioner | DX: Z20.822 Contact with and (suspected) exposure to COVID-19 (principal) | CPT/HCPCS: C9803; U0003; U0005 ==

== ENCOUNTER 2020-11-11 17:30 | Emergency (ER) | payer OTHER, SELFPAY ==
[2020-11-11 17:57] VITALS: BP 107/79; PULSE 114; RESP 16; TEMP 37.3; O2SAT 99; BMI 17.2
[2020-11-11 18:38] LABS: Adenovirus,PCR Not Detected (NotDetected); Bordetella Pertussis Not Detected (NotDetected); Chlamydophila Pneumoniae, PCR Not Detected (NotDetected); Coronavirus 19, PCR Not Detected (NotDetected); Coronavirus 229E Not Detected (NotDetected); Coronavirus NL63 Not Detected (NotDetected); Coronavirus OC43 Not Detected (NotDetected); Coronovirus HKU1,PCR Not Detected (NotDetected); Human Metapneumovirus Not Detected (NotDetected); Influenza A, PCR Not Detected (NotDetected); Influenza AH1, 2009 Not Detected (NotDetected); Influenza AH1, PCR Not Detected (NotDetected); Influenza AH3,PCR Not Detected (NotDetected); Influenza B, PCR Not Detected (NotDetected); Mycoplasma Pneumoniae, PCR Not Detected (NotDetected); Parainfluenza 1, PCR Not Detected (NotDetected); Parainfluenza 2, PCR Not Detected (NotDetected); Parainfluenza 3, PCR Not Detected (NotDetected); Parainfluenza 4, PCR Not Detected (NotDetected); Rhinovirus/Enterovirus Not Detected (NotDetected)
--- NOTE | 2020-11-11 18:57 | HMH.EDUTC ---
[facility] [place] Clinical Impression: Viral syndrome, Bronchitis Disposition: Home, Self-Care Condition on Discharge: Good Instructions: Acute Bronchitis, DI for Acute Bronchitis Additional Instructions: Drink plenty of fluids. Take tylenol or ibuprofen for pain or fever. Take the medications as directed. Follow up with your regular doctor. GO TO THE ER FOR ANY WORSENING SYMPTOMS Quarantine until you know the results of your covid-19 test. If it is positive, the health department should call you and give you further instructions about your length of Quarantine and other things. Notify your school or workplace of your results and follow their instructions regarding return to work/school. Prescriptions: Brompheniramine/Pseudoephed/Dm [Bromfed Dm Cough Syrup] 5 ml PO Q6HP PRN #240 ml PRN Reason: Cough Transmission Status: Received by [facility] # methylPREDNISolone [Medrol] 4 mg PO DIRECTED 6 Days #21 packet Transmission Status: Received by [facility] # Azithromycin [Z-Pj 250mg Tab*] 250 mg PO UD DOSE PK #6 tab Transmission Status: Received by [facility] # Referrals: Carlos Coles MD [Primary Care Provider] - Forms: Work/School Release Time of Disposition: 19:30 Medical Decision Making - Medical Records Medical records reviewed: No: I reviewed the patient's medical records. - Quentin Inquiry Pt receiving controlled substance: No Vital Signs: 11/11/20 17:57 11/11/20 19:44 Temperature 99.2 F 99.2 F Temperature Source Oral Pulse Rate 114 H Pulse Rate [Left] 114 H Respiratory Rate 16 18 Blood Pressure 107/79 L Blood Pressure [Right Arm] 107/79 L Blood Pressure Mean [Right Arm] 88 02 Sat by Pulse Oximetry 99 - Lab Data Lab results reviewed: Yes: I reviewed the patient's lab results. Lab Results 11/11/20 18:27: Strep Scn Rapid [facility] Negative 11/11/20 18:31: Chlamy pneumoniae PCR Not detected, Adenovirus (PCR) Not detected, B. pertussis DNA (PCR) Not detected, Coronavirus OC43 (PCR) Not detected, Coronavirus HKU1 (PCR) Not detected, Coronavirus 229E (PCR) Not detected, SARS-CoV-2 (PCR) Not detected, Coronavirus NL63 (PCR) Not detected, Human Metapneumovir PCR Not detected, Influenza A (H1) PCR Not detected, Influ A (H1N1/09) PCR Not detected, Influenza A (H3) PCR Not detected, Influenza Type A (PCR) Not detected, Influenza Type B (PCR) Not detected, M. pneumoniae (PCR) Not detected, Parainfluenza 1 (PCR) Not detected, Parainfluenza 2 (PCR) Not detected, Parainfluenza 3 (PCR) Not detected, Parainfluenza 4 (PCR) Not detected, RSV (PCR) Detected A, Entero/Rhino (PCR) Not detected Orders (Tests/Meds): ORDERS Category Date Time Status Strep Screen Confirmation Stat Micro 11/11/20 18:27 Received - Radiology Data #1 Image(s): Chest Image Reviewed: Yes I reviewed the patient's radiology image, Yes I have reviewed radiologist's interpretation [facility] [place] - General Stated complaint: cough,chills, fever Time Seen by Provider: 11/11/20 18:58 Mode of Arrival: Ambulatory Source of Information: Patient Limitations: No Limitations Description of Symptoms (Recalled from Triage Doc. by RN): pt c/o body aches, sore throat, chills, SOTELO, and coughing. pt was covid tested on 11/07 and it came back negative. HEENT Symptoms (Recalled from RN notes): Yes (sore throat and SOTELO) Resp Symptoms (Recalled from RN notes): Yes (cough) Skin Symptoms (Recalled from RN notes): No MS Symptoms (Recalled from RN notes): No Functional Status (Recalled from RN notes): myalgia and chills - History of Present Illness Provider Complaint: She states that she has had cough, chest congestion, fever and body aches for the past 3 days. She had a negative covid-19 test yesterday. - Related Data Previous Rx's Medication Instructions Recorded fluticasone 250 mcg-salmeterol 50 1 inh INHALATION BID #60 each 06/25/20 mcg/dose blistr powdr for i
--- NOTE | 2020-11-11 19:02 | XR_ITS ---
PROCEDURE INFORMATION: Exam: XR Chest Exam date and time: 11/11/2020 7:02 PM Age: 30 years old Clinical indication: Cough and shortness of breath and wheezing; Patient HX: Cough, congestion TECHNIQUE: Imaging protocol: XR of the chest. Views: 2 views. COMPARISON: CR XR CHEST 2V 03/19/2020 11:29 PM FINDINGS: Lungs: Unremarkable. No consolidation. Pleural spaces: Unremarkable. No pleural effusion. No pneumothorax. Heart/Mediastinum: Unremarkable. No cardiomegaly. Bones/joints: Unremarkable. IMPRESSION: No acute findings.
[2020-11-11 19:44] VITALS: BP 107/79; PULSE 114; RESP 18; TEMP 37.3
[2020-11-11 19:46] LABS: UTC Strep Screen (Rapid) Negative (Negative)
[2020-11-11 21:00] LABS: Respiratory Syncytial Virus Detected (NotDetected)
== END 2020-11-11 19:47 | disposition home or self-care (01) ==
PROVIDERS: Emergency Provider Nurse Practitioner Family; PCP Emergency Medicine
DX: J21.0 Acute bronchiolitis due to respiratory syncytial virus (principal)
CPT/HCPCS: 71046; 87581; 87632; 87798; 87880; 99202; C9803; G0463; U0003; U0005

== ENCOUNTER 2021-04-20 14:43 | Emergency (ER) | payer OTHER, SELFPAY ==
[2021-04-20 16:34] VITALS: BP 0/0; PULSE 0; RESP 0; TEMP -17.7; TEMP 0; O2SAT 0
== END 2021-04-20 16:34 | disposition left against medical advice (07) ==
LOC: UTC 14:46
PROVIDERS: Emergency Provider Nurse Practitioner; PCP Emergency Medicine
DX: Z53.21 Procedure and treatment not carried out due to patient leaving prior to being seen by health care provider (principal)

== ENCOUNTER 2021-05-06 08:59 | Emergency (ER) | payer OTHER, SELFPAY ==
[2021-05-06 09:20] VITALS: BP 117/71; PULSE 89; RESP 19; TEMP 36.9; O2SAT 99; BMI 16.5
--- NOTE | 2021-05-06 09:24 | HMH.EDUTC ---
[facility] [place] Clinical Impression: Sinusitis Qualifiers: Sinusitis location: unspecified location Chronicity: unspecified Qualified Code(s): J32.9 - Chronic sinusitis, unspecified Acute bronchitis Qualifiers: Bronchitis organism: unspecified organism Qualified Code(s): J20.9 - Acute bronchitis, unspecified Disposition: Home, Self-Care Condition on Discharge: Good Instructions: Acute Bronchitis, DI for Muscle Spasm Additional Instructions: ? Start antibiotic today. Be sure to complete entire prescription even if feeling better ? Monitor temp. Tylenol every 4 hours as needed and / or ibuprofen every 6 hours as needed ( As long as your primary care physician has told you that it ok to take both. For fever/aches/pains ER if no less than 101 despite Tylenol or Motrin ? Humidifier/vaporizer or hot steamy shower *Tessalon Perles will not cause drowsiness but use at bedtime to help stop cough so that you may get some rest. *Start steroid today. Helps with inflammation therefore, cough and wheezing. Follow directions on the package. Reviewed side effects. Patient reports taking them before. You may call back to the [facility] later for the official reading of your Xray Follow up IMMEDIATELY for new or worsening of symptoms OR no noticeable improvement over the next 48-72 hours. 911 immediately for any life threatening symptoms such as chest pain or difficulty breathing Prescriptions: methylPREDNISolone [Medrol 4mg tab] 4 mg PO DIRECTED #21 tab Transmission Status: Received by [facility] # methocarbamoL [Methocarbamol] 500 mg PO BID PRN #10 tab PRN Reason: Muscle Spasm Transmission Status: Received by [facility] # Azithromycin [Z-Pj 250mg Tab] 250 mg PO DIRECTED #6 tab Transmission Status: Received by [facility] # Referrals: Carlos Coles MD [Primary Care Provider] - As needed Forms: Work/School Release Time of Disposition: 10:39 Medical Decision Making - Quentin Inquiry Pt receiving controlled substance: No Quentin was queried for this patient: No Vital Signs: 05/06/21 09:20 05/06/21 10:49 Temperature 98.4 F 98.4 F Temperature Source Oral Pulse Rate 89 Pulse Rate [Left] 89 Respiratory Rate 19 19 Blood Pressure 117/71 Blood Pressure [Right Arm] 117/71 Blood Pressure Mean [Right Arm] 86 02 Sat by Pulse Oximetry 99 - Lab Data Lab results reviewed: Yes: I reviewed the patient's lab results. Lab Results 05/06/21 09:23: Influenza Type A Ag Negative, Influenza Type B Ag Negative - Radiology Data #1 Image(s): Chest (with left ribs) Image Reviewed: Yes I reviewed the patient's radiology image Preliminary Findings: Normal/NAD, No Fracture Seen [facility] [place] - General Stated complaint: cough,SOA,weakness Time Seen by Provider: 05/06/21 09:24 Mode of Arrival: Ambulatory Source of Information: Patient Limitations: No Limitations Description of Symptoms (Recalled from Triage Doc. by RN): pt c/o R rib pain, difficulty breathing and a fever x2 days. HEENT Symptoms (Recalled from RN notes): No Resp Symptoms (Recalled from RN notes): Yes Skin Symptoms (Recalled from RN notes): No MS Symptoms (Recalled from RN notes): No Functional Status (Recalled from RN notes): wnl - History of Present Illness Provider Complaint: Patient state that she has been sick for several days with fever an cough States that she has been tested for COVID twice and it was negative States that she is having pain/muscle spasm in her back rib area when she coughs or moves certain ways States that today she was still not feeling better so she came in - Related Data Previous Rx's Medication Instructions Recorded fluticasone 250 mcg-salmeterol 50 1 inh INHALATION BID #60 each 06/25/20 mcg/dose blistr powdr for inhalation montelukast 10 mg tablet 10 mg PO QDAY 90 Days #90 tab 06/25/20 ubrogepant 100 mg tablet 100 mg PO ONCE PRN #10 tab 07/11/20 Amoxicillin [Amoxicillin 40
[2021-05-06 09:40] LABS: UTC Influenza A Antigen Negative (Negative)
[2021-05-06 09:41] LABS: UTC Influenza B Antigen Negative (Negative)
--- NOTE | 2021-05-06 09:43 | XR_ITS ---
FINAL REPORT CLINICAL HISTORY: pain in left ribs no accident, pain x 2 days FINDINGS: 3 views of the left ribs were obtained. There are no rib fractures. There is no pleural fluid collection or pneumothorax. A single view of the chest demonstrates no acute cardiopulmonary process. IMPRESSION: Unremarkable left rib series. Reviewed, Interpreted and Dictated by Phil Sumner III, MD Transcribed by Aguilar Aguayo Authenticated by Phil Sumner III, MD on 05/06/2021 11:08:07 AM [facility]
[2021-05-06 10:49] VITALS: BP 117/71; PULSE 89; RESP 19; TEMP 36.9
== END 2021-05-06 10:52 | disposition home or self-care (01) ==
PROVIDERS: Emergency Provider Nurse Practitioner; PCP Emergency Medicine
DX: J20.9 Acute bronchitis, unspecified (principal); J32.9 Chronic sinusitis, unspecified; J45.909 Unspecified asthma, uncomplicated; F33.1 Major depressive disorder, recurrent, moderate; Z79.899 Other long term (current) drug therapy
CPT/HCPCS: 71101; 87804; 99213; G0463

== ENCOUNTER → 2021-08-06 06:56 | Outpatient (CLI) | payer OTHER, SELFPAY ==
[2021-08-05 18:03] LABS: Basophils # 0.1 K/mm3 (0-0.2); Basophils % 0.9 % (0.1-2.0); Eosinophils # 0.5 K/mm3 (0.0-0.4); Hematocrit 42.3 % (37.0-47.0); Hemoglobin 14.5 g/dL (12.2-16.2); Lymphocytes # 2.1 K/mm3 (0.7-4.5); Lymphocytes % 27.4 % (10-50); Mean Corpuscular HGB Conc 34.2 g/dL (31.8-35.4); Mean Corpuscular Hemoglobin 29.3 pg (27.0-31.2); Mean Corpuscular Volume 85.8 fl (81-99); Mean Platelet Volume 9.3 fl (7.4-10.4); Monocytes # 0.3 K/mm3 (0.1-1.0); Monocytes % 4.5 % (1.7-9.3); Neutrophils # 4.7 K/mm3 (1.8-7.8); Neutrophils % 61.2 % (37.0-80.0); Platelet Count 235 K/mm3 (142-424); Red Blood Count 4.93 M/mm3 (4.20-5.40); Red Cell Distribution Width 13.5 % (11.5-17.5); White Blood Count 7.7 K/mm3 (4.8-10.8)
[2021-08-05 18:08] LABS: Alanine Aminotransferase 21 U/L (12-78); Albumin Level 4.4 g/dl (3.5-5.0); Albumin/Globulin Ratio 1.5 (1.1-1.8); Alkaline Phosphatase 61 U/L (38-126); Anion Gap 11.9 mEq/L (5-15); Aspartate Amino Transferase 27 U/L (14-36); Bilirubin,Total 0.6 mg/dl (0.2-1.3); Blood Urea Nitrogen 9 mg/dl (7-17); Calcium 10.4 mg/dl (8.4-10.2); Carbon Dioxide 27 mmol/L (22.0-30.0); Chloride 105 mmol/L (98-107); Chol/HDL Ratio 2.4 (1-3.5); Cholesterol 171 mg/dl (140-200); Estimated Glomerular Filt Rate 99 ml/min (>60); GFR (African American) 120 ML/MIN (>60); Glucose 96 mg/dl (74-100); HDL Cholesterol 70 mg/dl (40-60); Potassium 4.9 mmoL/L (3.5-5.1); Sodium 139 mmol/L (136-145); Total Protein,Serum 7.4 g/dl (6.3-8.2); Triglycerides 62 mg/dl (30-150); VLDL Cholesterol 12 mg/dL (0-40)
[2021-08-05 18:19] LABS: Direct LDL Cholesterol 79.28 mg/dL (100-129)
[2021-08-05 18:25] LABS: 25-OH Vitamin D, Total 33.4 ng/mL (30-100)
[2021-08-05 18:26] LABS: T4 (Thyroxine) 8.2 ug/dl (5.53-11.0)
[2021-08-05 18:40] LABS: Thyroid Stimulating Hormone 1.08 uIU/mL (0.465-4.68)
== END ==
PROVIDERS: PCP Nurse Practitioner Family; Visit Provider Nurse Practitioner Family
DX: G43.909 Migraine, unspecified, not intractable, without status migrainosus (principal); R53.83 Other fatigue; Z68.1 Body mass index [BMI] 19.9 or less, adult; Z79.899 Other long term (current) drug therapy
CPT/HCPCS: 80053; 80061; 82306; 84436; 84443; 85025

== ENCOUNTER 2021-09-05 13:43 | Emergency (ER) | payer OTHER, SELFPAY ==
[2021-09-05 13:44] VITALS: BP 106/62; PULSE 88; RESP 18; TEMP 37; O2SAT 99; BMI 17.9
--- NOTE | 2021-09-05 14:47 | HMH.EDUTC ---
[facility] [place] Impression: Bronchitis Sinusitis Qualifiers: Sinusitis location: unspecified location Chronicity: acute Recurrence: non-recurrent Qualified Code(s): J01.90 - Acute sinusitis, unspecified Disposition: Home, Self-Care Condition on Discharge: Good Instructions: DI for Sinusitis Additional Instructions: Drink plenty of fluids. Take tylenol or ibuprofen for pain or fever. Take the medications as directed. Follow up with your regular doctor. GO TO THE ER FOR ANY WORSENING SYMPTOMS The cough medication (promethazine dm) will make you drowsy, so don't drive or operate heavy machinery after taking it. Prescriptions: Promethazine/Dextromethorphan [Promethazine-Dm Syrup] 5 ml PO Q6HP PRN #240 ml PRN Reason: Cough [id number] Ondansetron [Zofran 4mg ODT] 4 mg PO Q8HP PRN #20 tab PRN Reason: Nausea Transmission Status: [id number] methylPREDNISolone [Medrol] 4 mg PO DIRECTED 6 Days #21 packet Transmission Status: [id number] Azithromycin [Z-Pj 250mg Tab*] 250 mg PO UD DOSE PK #6 tab Transmission Status: Received by [id number] Referrals: Carlos Coles MD [Primary Care Provider] - Time of Disposition: 15:03 Medical Decision Making - Medical Records Medical records reviewed: No: I reviewed the patient's medical records. - Quentin Inquiry Pt receiving controlled substance: No Vital Signs: 09/05/21 13:44 09/05/21 15:15 Temperature 98.6 F 98.5 F Temperature Source Oral Oral Pulse Rate 80 Pulse Rate [Brachial] 88 Respiratory Rate 18 17 Blood Pressure 102/55 L Blood Pressure [Right Arm] 106/62 L Blood Pressure Mean [Right Arm] 76 Blood Pressure Source [Right Arm] Automatic Cuff Blood Pressure Position Sitting Blood Pressure Position [Right Arm] Sitting 02 Sat by Pulse Oximetry 99 Oxygen Delivery Method Room Air [facility] [place] General Stated complaint: cough, slight fever stuffy nose Time Seen by Provider: 09/05/21 14:47 - History of Present Illness Provider Complaint: She states that for the past 2 days she has had a cough, chest congestion, sore throat and sinus congestion. She has used 5 home covid test over the past 2 days and they have been negative. She refuses any more viral testing today. - Related Data Previous Rx's Medication Instructions Recorded methocarbamoL [Methocarbamol] 500 mg PO BID PRN #10 tab 05/06/21 fluticasone 250 mcg-salmeterol 50 1 inh INHALATION BID #60 each 08/05/21 mcg/dose blistr powdr for inhalation montelukast 10 mg tablet 10 mg PO QDAY 90 Days #90 tab 08/05/21 ubrogepant 100 mg tablet 100 mg PO ONCE PRN #10 tab 08/05/21 ProAir HFA 90 mcg/actuation See Rx Instructions .ROUTE 09/02/21 aerosol inhaler .COMPLEX #8.5 g NS Azithromycin [Z-Jp 250mg Tab*] 250 mg PO UD DOSE PK #6 tab 09/05/21 Ondansetron [Zofran 4mg ODT] 4 mg PO Q8HP PRN #20 tab 09/05/21 Promethazine/Dextromethorphan 5 ml PO Q6HP PRN #240 ml 09/05/21 [Promethazine-Dm Syrup] methylPREDNISolone [Medrol] 4 mg PO DIRECTED 6 Days #21 09/05/21 packet Allergies Allergy/AdvReac Type Severity Reaction Status Date / Time watermelon [WATERMELON] Allergy Unknown Verified 08/05/21 13:32 [facility] History - Hepatitis A Screen Attestation statement:: This patient has been screened for Hepatitis A risk factors. I have reviewed the patient's past medical history: Yes Medical History: Reports:: Asthma, Depression Denies:: Cancer, Diabetes Mellitus Type 1, Diabetes Mellitus Type 2, Hypertension, MRSA Comment: depression Other Surgeries: Yes: Hernia Repair, Tubal Ligation, Other Amputation: No Fractures: No Comment: hernia, tubal ligation - Social History Smoking Status: Never smoker Alcohol Intake: never Substance Use Type: denies use Occupational Status: employed Housing: other Household Members: other - Psychiatric History
[2021-09-05 15:15] VITALS: BP 102/55; PULSE 80; RESP 17; TEMP 36.9
== END 2021-09-05 15:15 | disposition home or self-care (01) ==
PROVIDERS: Emergency Provider Nurse Practitioner Family; PCP Emergency Medicine
DX: J40 Bronchitis, not specified as acute or chronic (principal); J01.90 Acute sinusitis, unspecified
CPT/HCPCS: 99212; G0463

== ENCOUNTER → 2022-01-20 14:45 | Outpatient (CLI) | payer OTHER, SELFPAY ==
[2022-01-20 17:53] LABS: Adenovirus,PCR Not Detected (NotDetected); Bordetella Pertussis Not Detected (NotDetected); Chlamydophila Pneumoniae, PCR Not Detected (NotDetected); Coronavirus 19, PCR Not Detected (NotDetected); Coronavirus 229E Not Detected (NotDetected); Coronavirus NL63 Not Detected (NotDetected); Coronavirus OC43 Not Detected (NotDetected); Coronovirus HKU1,PCR Not Detected (NotDetected); Human Metapneumovirus Not Detected (NotDetected); Influenza A, PCR Not Detected (NotDetected); Influenza AH1, 2009 Not Detected (NotDetected); Influenza AH1, PCR Not Detected (NotDetected); Influenza AH3,PCR Not Detected (NotDetected); Influenza B, PCR Not Detected (NotDetected); Mycoplasma Pneumoniae, PCR Not Detected (NotDetected); Parainfluenza 1, PCR Not Detected (NotDetected); Parainfluenza 2, PCR Not Detected (NotDetected); Parainfluenza 3, PCR Not Detected (NotDetected); Parainfluenza 4, PCR Not Detected (NotDetected); Respiratory Syncytial Virus Not Detected (NotDetected); Rhinovirus/Enterovirus Not Detected (NotDetected)
== END ==
PROVIDERS: PCP Nurse Practitioner Family; Visit Provider Nurse Practitioner Family
DX: Z20.822 Contact with and (suspected) exposure to COVID-19 (principal); R50.9 Fever, unspecified; R11.2 Nausea with vomiting, unspecified; R19.7 Diarrhea, unspecified; R53.83 Other fatigue; R51.9 Headache, unspecified
CPT/HCPCS: 87581; 87632; 87798; C9803; U0003; U0005

== ENCOUNTER 2022-02-24 16:44 | Emergency (ER) | payer OTHER, SELFPAY ==
[2022-02-24 17:30] VITALS: BP 101/57; PULSE 82; RESP 19; TEMP 36.9; O2SAT 99; BMI 36.1
--- NOTE | 2022-02-24 17:38 | EXP.UTC ---
Discharge Plan Disposition Patient Disposition: Home, Self-Care Condition: Good Prescriptions Prescriptions: New benzonatate [benzonatate] 100 mg capsule 100 mg PO TIDP PRN (Reason: Cough) Qty: 30 0RF azithromycin [Zithromax] 250 mg tablet 250 mg PO UD DOSE PK Qty: 6 0RF Rx Instructions: Take two (2) tablets today, then one (1) tablet days #2 thru #5 methylprednisolone 4 mg Tablets,Dose Pack 4 mg PO DIRECTED Qty: 21 0RF No Action prednisone 20 mg tablet 20 mg PO BID 5 Days Qty: 10 0RF ondansetron 4 mg tablet,disintegrating 4 mg PO Q8H PRN (Reason: nausea and vomiting) Qty: 30 0RF cefdinir 300 mg capsule 300 mg PO BID 10 Days Qty: 20 0RF montelukast [Singulair] 10 mg tablet 10 mg PO QDAY 90 Days Qty: 90 3RF Ubrelvy 100 mg tablet 100 mg PO ONCE PRN (Reason: migraine headache) Qty: 10 2RF fluticasone propion-salmeterol [Advair Diskus] 250-50 mcg/dose blister with device 1 inh INHALATION BID Qty: 60 2RF fluticasone furoate-vilanterol [Breo Ellipta] 100-25 mcg/dose blister with device 1 inh IH DAILY Qty: 60 2RF albuterol sulfate [ProAir HFA] 90 mcg/actuation HFA aerosol inhaler See Rx Instructions .ROUTE .COMPLEX Qty: 8.5 0RF Dose Instruction: INHALE 1 PUFF BY MOUTH EVERY 4 TO 6 HOURS NEEDED Rx Instructions: INHALE 1 PUFF BY MOUTH EVERY 4 TO 6 HOURS NEEDED methocarbamol 500 MG tablet 500 mg PO BID PRN (Reason: Muscle Spasm) Qty: 10 0RF Referrals Follow up/Referrals: Carlos Coles MD [Primary Care Provider] - See instructions Activity Restrictions/Add. Instructions Additional Instructions/Restrictions: Drink plenty of fluids. Take tylenol or ibuprofen for pain or fever. Take the medications as directed. Follow up with your regular doctor. GO TO THE ER FOR ANY WORSENING SYMPTOMS Clinical Impressions Clinical Impression: Acute viral syndrome, Bronchitis Instructions Patient Instructions: DI for Acute Bronchitis, DI for Viral Syndrome Discharge ED Provider: Navin Fleming [facility] HPI General Stated complaint: sore throat and poss fever Time Seen by Provider: 02/24/22 17:38 History of Present Illness Provider Complaint: She c/o scratchy sore throat, productive cough, fever, body aches, and malaise for the past 1 day. Related Data Previous Rx's Medication Instructions Recorded methocarbamol 500 mg tablet 500 mg PO BID PRN Muscle Spasm #10 05/06/21 tabs montelukast 10 mg tablet 10 mg PO QDAY 90 days #90 tabs 08/05/21 (Singulair) ubrogepant 100 mg tablet (Ubrelvy) 100 mg PO ONCE PRN migraine 08/05/21 headache #10 tabs fluticasone 250 mcg-salmeterol 50 1 inh inhalation BID #60 ea 10/07/21 mcg/dose blistr powdr for inhalation (Advair Diskus) cefdinir 300 mg capsule 300 mg PO BID 10 days #20 caps 01/20/22 ondansetron 4 mg disintegrating 4 mg PO Q8H PRN nausea and 01/20/22 tablet vomiting #30 tabs prednisone 20 mg tablet 20 mg PO BID 5 days #10 tabs 01/20/22 ProAir HFA 90 mcg/actuation See Rx Instructions .Route 01/26/22 aerosol inhaler (albuterol sulfate) .COMPLEX #8.5 grams fluticasone furoate 100 1 inh inhalation DAILY #60 ea 01/26/22 mcg-vilanterol 25 mcg/dose inhalation powder (Breo Ellipta) azithromycin 250 mg tablet 250 mg PO UD DOSE PK #6 tabs 02/24/22 (Zithromax) benzonatate 100 mg capsule 100 mg PO TIDP PRN Cough #30 caps 02/24/22 methylprednisolone 4 mg tablets in 4 mg PO DIRECTED #21 tabs 02/24/22 a dose pack Allergies Allergy/AdvReac Type Severity Reaction Status Date / Time watermelon [WATERMELON] Allergy Unknown Verified 02/24/22 17:40 [facility] Disclaimer: The information contained in this section may have been updated after the patient was seen, as this information can be updated by other users. Medical History Anxiety Asthma Migraines Social History
[2022-02-24 17:46] LABS: UTC Influenza A Antigen Negative (Negative); UTC Influenza B Antigen Negative (Negative); UTC Strep Screen (Rapid) Negative (Negative)
[2022-02-24 18:30] VITALS: BP 101/57; PULSE 82; RESP 19; TEMP 36.9; O2SAT 99
== END 2022-02-24 18:30 | disposition home or self-care (01) ==
PROVIDERS: Emergency Provider Nurse Practitioner Family; PCP Emergency Medicine
DX: J20.9 Acute bronchitis, unspecified (principal)
CPT/HCPCS: 87804; 87880; 99212; 99213; C9803; G0463; U0003; U0005

== ENCOUNTER 2022-03-18 13:07 | Emergency (ER) | payer OTHER, SELFPAY ==
[2022-03-18 13:45] VITALS: BP 126/77; PULSE 106; RESP 19; TEMP 36.9; O2SAT 99; BMI 17.9
[2022-03-18 14:19] LABS: UTC Strep Screen (Rapid) Negative (Negative)
[2022-03-18 14:36] VITALS: BP 126/77; PULSE 106; RESP 19; TEMP 36.9; O2SAT 99
--- NOTE | 2022-03-18 14:41 | EXP.UTC ---
Discharge Plan Disposition Patient Disposition: Home, Self-Care Condition: Good Prescriptions Prescriptions: New cefdinir 300 mg capsule 300 mg PO BID 10 Days Qty: 20 0RF methylprednisolone [Medrol (Pj)] 4 mg tablets,dose pack See Rx Instructions .Route .COMPLEX 6 Days Qty: 21 0RF Rx Instructions: taper pack; No Action prednisone 20 mg tablet 20 mg PO BID 5 Days Qty: 10 0RF ondansetron 4 mg tablet,disintegrating 4 mg PO Q8H PRN (Reason: nausea and vomiting) Qty: 30 0RF cefdinir 300 mg capsule 300 mg PO BID 10 Days Qty: 20 0RF montelukast [Singulair] 10 mg tablet 10 mg PO QDAY 90 Days Qty: 90 3RF Ubrelvy 100 mg tablet 100 mg PO ONCE PRN (Reason: migraine headache) Qty: 10 2RF fluticasone propion-salmeterol [Advair Diskus] 250-50 mcg/dose blister with device 1 inh INHALATION BID Qty: 60 2RF fluticasone furoate-vilanterol [Breo Ellipta] 100-25 mcg/dose blister with device 1 inh IH DAILY Qty: 60 2RF albuterol sulfate [Ventolin HFA] 90 mcg/actuation HFA aerosol inhaler 2 puff inhalation Q4-6H PRN (Reason: shortness of breath or wheezing) Qty: 8.5 0RF benzonatate [benzonatate] 100 mg capsule 100 mg PO TIDP PRN (Reason: Cough) Qty: 30 0RF azithromycin [Zithromax] 250 mg tablet 250 mg PO UD DOSE PK Qty: 6 0RF Rx Instructions: Take two (2) tablets today, then one (1) tablet days #2 thru #5 methylprednisolone 4 mg Tablets,Dose Pack 4 mg PO DIRECTED Qty: 21 0RF methocarbamol 500 MG tablet 500 mg PO BID PRN (Reason: Muscle Spasm) Qty: 10 0RF Referrals Follow up/Referrals: Carlos Coles MD [Primary Care Provider] - See instructions Activity Restrictions/Add. Instructions Additional Instructions/Restrictions: *Monitor Temp, Over the counter Motrin or Tylenol as directed/as needed Tylenol every 4 hours and Motrin every 6 hours (as long as your family doctor has told you that you can take it) for fever or pain. and straight to ER if unable to lower temp less than 101.0 after medication given *Warm salt water gargles may help to soothe the throat *Throat Lozenges? *Warm fluids like tea with honey may help to soothe the throat? *Sleep elevated *Humidifier/Vaporizer Your throat swab was sent for culture. Those results are typically sent to your primary care. Be sure to follow up in 2-3 days with your family doctor/primary care physician if no improvement so they can review those result and treat if necessary. If you don?t have a primary care doctor, I recommend you get one but in the mean time, you will have to return to a walk in clinic Follow up IMMEDIATELY for new or worsening symptoms or no Noticeable improvement over the next 48-72 hours. 911 for difficulty breathing or swallowing Clinical Impressions Clinical Impression: Sinusitis Instructions Patient Instructions: DI for Sinusitis, Sinusitis Discharge ED Provider: Mallika Valero [facility] General Stated complaint: Drainage fever chills loss smell cough bodyache Mode of Arrival: Ambulatory Source of Information: Patient Limitations: No Limitations Time Seen by Provider: 03/18/22 14:42 Description of Symptoms (Recalled from Triage Doc. by RN): PATIENT C/O RUNNY NOSE, COUGH, CHILLS, AND SORE THROAT X 2 DAYS HEENT Symptoms (Recalled from RN notes): Yes Resp Symptoms (Recalled from RN notes): Yes Skin Symptoms (Recalled from RN notes): No MS Symptoms (Recalled from RN notes): No Functional Status (Recalled from RN notes): WNL History of Present Illness Provider Complaint: Patient states that she has been having issues with her sinuses for over a week States that in the last 2 days it has got worse States that she cannot smell anything, having sore throat, pressure behind her eyes and chills Related Data Previous Rx's Medication Instructions Recorded methocarbamol 500 mg tablet 500 mg PO BID PRN Muscle Spasm #10 05/06/21 tabs montelukast 10 mg
== END 2022-03-18 15:04 | disposition home or self-care (01) ==
PROVIDERS: Emergency Provider Nurse Practitioner; PCP Emergency Medicine
DX: J32.9 Chronic sinusitis, unspecified (principal)
CPT/HCPCS: 87880; 99212; 99213; C9803; G0463; U0003; U0005

== ENCOUNTER 2022-03-31 12:58 | Emergency (ER) | payer OTHER, SELFPAY ==
[2022-03-31 13:33] VITALS: BP 106/62; PULSE 116; RESP 17; TEMP 37.9; O2SAT 98; BMI 17.2
[2022-03-31 13:48] LABS: Apearance,Urine Clear (Clear); Bilirubin,Urine Negative (Negative); Blood, Urine Negative (Negative); Color,Urine Dark Yellow (Yellow); Glucose,Urine (UA) Negative (Negative); Ketones,Urine Negative (Negative); Protein,Urine Negative (Negative); UTC Leukocyte Esterase,Urine Negative (Negative); UTC Nitrate,Urine Negative (Negative); UTC Pregnancy Test, Urine Negative (Negative); Urobilinogen,Urine 0.2 EU/dl (0.2)
--- NOTE | 2022-03-31 13:49 | EXP.UTC ---
Discharge Plan Disposition Patient Disposition: Home, Self-Care Condition: Good Prescriptions Prescriptions: New ondansetron 4 mg tablet,disintegrating 4 mg PO Q8H PRN (Reason: nausea and vomiting) Qty: 10 0RF No Action prednisone 20 mg tablet 20 mg PO BID 5 Days Qty: 10 0RF ondansetron 4 mg tablet,disintegrating 4 mg PO Q8H PRN (Reason: nausea and vomiting) Qty: 30 0RF cefdinir 300 mg capsule 300 mg PO BID 10 Days Qty: 20 0RF montelukast [Singulair] 10 mg tablet 10 mg PO QDAY 90 Days Qty: 90 3RF Ubrelvy 100 mg tablet 100 mg PO ONCE PRN (Reason: migraine headache) Qty: 10 2RF fluticasone propion-salmeterol [Advair Diskus] 250-50 mcg/dose blister with device 1 inh INHALATION BID Qty: 60 2RF fluticasone furoate-vilanterol [Breo Ellipta] 100-25 mcg/dose blister with device 1 inh IH DAILY Qty: 60 2RF albuterol sulfate 90 mcg/actuation HFA aerosol inhaler See Rx Instructions .ROUTE .COMPLEX Qty: 18 0RF Dose Instruction: INHALE 2 PUFFS BY MOUTH EVERY 4 TO 6 HOURS NEEDED FOR SHORTNESS OF BREATH FOR WHEEZING Rx Instructions: INHALE 2 PUFFS BY MOUTH EVERY 4 TO 6 HOURS NEEDED FOR SHORTNESS OF BREATH FOR WHEEZING benzonatate [benzonatate] 100 mg capsule 100 mg PO TIDP PRN (Reason: Cough) Qty: 30 0RF azithromycin [Zithromax] 250 mg tablet 250 mg PO UD DOSE PK Qty: 6 0RF Rx Instructions: Take two (2) tablets today, then one (1) tablet days #2 thru #5 methylprednisolone 4 mg Tablets,Dose Pack 4 mg PO DIRECTED Qty: 21 0RF cefdinir 300 mg capsule 300 mg PO BID 10 Days Qty: 20 0RF methylprednisolone [Medrol (Pj)] 4 mg tablets,dose pack See Rx Instructions .Route .COMPLEX 6 Days Qty: 21 0RF Rx Instructions: taper pack; fluconazole [Diflucan] 150 mg tablet 150 mg PO ONCE Qty: 1 2RF methocarbamol 500 MG tablet 500 mg PO BID PRN (Reason: Muscle Spasm) Qty: 10 0RF Referrals Follow up/Referrals: Sharyn,Carlos S, MD [Primary Care Provider] - See instructions Activity Restrictions/Add. Instructions Additional Instructions/Restrictions: Drink extra fluids with and between meals. If you have difficulty drinking, try very small amounts of water or suck on ice chips. ? Avoid fruit juices, as these do not replace minerals and can actually increase diarrhea. ? Children and adults can use sports drinks to replenish electrolytes. Younger children and infants should use products formulated for children, like oral rehydration solutions. ? Eat food in small amounts and let your stomach recover. ? Get lots of rest. You may feel tired or weak. ? No greasy or fried foods for the next 24-48 hours BRAT diet Bananas Rice Apples and [place] ? Make sure to drink plenty of liquids ? Return if needed ? Straight to ER if any life threatening symptoms ? Zofran as prescribed ? Follow up with family doctor in the next 48-72 hours if no improvement or any worsening of symptoms Clinical Impressions Clinical Impression: Viral syndrome Instructions Patient Instructions: DI for Vomiting -- Adult, Nausea and Vomiting-Adult, Ondansetron Discharge ED Provider: Mallika Valero [facility] [place], [place] General Stated complaint: vomiting, body aches, nausea Mode of Arrival: Ambulatory Source of Information: Patient Limitations: No Limitations Time Seen by Provider: 03/31/22 13:49 Description of Symptoms (Recalled from Triage Doc. by RN): Patient reports vomiting since last night, stomach pain HEENT Symptoms (Recalled from RN notes): No Resp Symptoms (Recalled from RN notes): No Skin Symptoms (Recalled from RN notes): No MS Symptoms (Recalled from RN notes): No Functional Status (Recalled from RN notes): wnl History of Present Illness Provider Complaint: Patient states that she feels like she may have the flu or something and the school called her on her daughter that is vomiting at wa
[2022-03-31 14:07] LABS: UTC Influenza A Antigen Negative (Negative)
[2022-03-31 14:08] LABS: UTC Influenza B Antigen Negative (Negative)
[2022-03-31 14:15] VITALS: BP 106/62; PULSE 100; RESP 17; TEMP 37.2; O2SAT 98
== END 2022-03-31 14:17 | disposition home or self-care (01) ==
PROVIDERS: Emergency Provider Nurse Practitioner; PCP Emergency Medicine
DX: B34.9 Viral infection, unspecified (principal); R11.2 Nausea with vomiting, unspecified; R52 Pain, unspecified
CPT/HCPCS: 81003; 81025; 87804; 99212; 99213; G0463

== ENCOUNTER 2022-05-14 12:32 | Emergency (ER) | payer OTHER, SELFPAY ==
[2022-05-14 12:40] VITALS: BP 120/77; PULSE 85; RESP 22; TEMP 37; O2SAT 97; BMI 17.4
--- NOTE | 2022-05-14 12:45 | EXP.UTC ---
Discharge Plan Disposition Patient Disposition: Home, Self-Care Condition: Good Prescriptions Prescriptions: No Action albuterol sulfate 90 mcg/actuation HFA aerosol inhaler See Rx Instructions .ROUTE .COMPLEX Rx Instructions: INHALE 2 PUFFS BY MOUTH EVERY 4 TO 6 HOURS NEEDED FOR SHORTNESS OF BREATH FOR WHEEZING Referrals Follow up/Referrals: Carlos Coles MD [Primary Care Provider] - See instructions Activity Restrictions/Add. Instructions Additional Instructions/Restrictions: Drink plenty of fluids. Follow up with your regular doctor. GO TO THE ER FOR ANY WORSENING SYMPTOMS Clinical Impressions Clinical Impression: Migraine Instructions Patient Instructions: Migraine -- Adult, DI for Migraine, Promethazine, Ketorolac Injection, Dexamethasone Injection Discharge ED Provider: Navin Fleming [facility] General Stated complaint: possible migraine, nausea Mode of Arrival: Ambulatory Source of Information: Patient Limitations: No Limitations Time Seen by Provider: 05/14/22 12:45 Description of Symptoms (Recalled from Triage Doc. by RN): PATIENT C/O MIGRAINE WITH BLURRY VISION AND NAUSEA THAT STARTED TODAY HEENT Symptoms (Recalled from RN notes): Yes Resp Symptoms (Recalled from RN notes): No Skin Symptoms (Recalled from RN notes): No MS Symptoms (Recalled from RN notes): No Functional Status (Recalled from RN notes): WNL History of Present Illness Provider Complaint: She is here with complaints of having a migraine headache for the past 2 days. She usually take ublevy for them and it usually works well. But she states that this time it has not worked as well. She describes her headache as feeling like her normal migraine Related Data Home Medications Medication Instructions Recorded Confirmed albuterol sulfate 90 mcg/actuation See Rx Instructions .Route 05/14/22 05/14/22 aerosol inhaler .COMPLEX SOA Allergies Allergy/AdvReac Type Severity Reaction Status Date / Time watermelon [WATERMELON] Allergy Unknown Verified 02/24/22 17:40 Worker's Comp Is this a Worker's Comp case?: No [facility] Disclaimer: The information contained in this section may have been updated after the patient was seen, as this information can be updated by other users. Medical History Anxiety Asthma Migraines Surgical History History of tubal ligation Social History Smoking Status: Never smoker alcohol intake: never substance use type: denies use current occupational status: employed Travel in the last 8 weeks: None household members: other housing: other ROS Obtained: Yes All systems reviewed & no additional complaints except as documented Constitutional Constitutional: Denies chills, Denies fever(s) and Reports headache(s) Eyes Eyes: Denies eye discharge and Denies loss of vision ENT Ears, Nose, Mouth, and Throat: Denies abnormal hearing, Denies disequilibrium, Denies dizziness, Denies otalgia, Reports headache(s) and Denies sore throat Cardiovascular Cardiovascular: Denies chest pain Respiratory Respiratory: Denies shortness of breath, Denies chest congestion, Denies cough, Denies stridor and Denies wheezing Gastrointestinal Gastrointestingal: Denies nausea or vomiting Musculoskeletal Musculoskeletal: Reports system reviewed and no additional complaints, except as documented, Denies arthralgias and Denies numbness Integumentary/Breasts Skin/Breast: Denies rash Neurologic Neurologic: Reports as per HPI, Denies abnormal hearing, Denies abnormal movements, Denies confusion, Denies convulsions, Denies disequilibrium, Denies dizziness, Reports headache(s), Denies loss of vision, Denies memory loss, Denies numbness, Denies other visual disturbances and Denies paresthesias Allergic/Immunologic Allergic/Immunologic: Denies wh
[2022-05-14 13:31] VITALS: BP 120/77; PULSE 85; RESP 22; TEMP 37; O2SAT 97
== END 2022-05-14 13:41 | disposition home or self-care (01) ==
PROVIDERS: Emergency Provider Nurse Practitioner Family; PCP Emergency Medicine
DX: G43.909 Migraine, unspecified, not intractable, without status migrainosus (principal); R11.0 Nausea; H53.8 Other visual disturbances
CPT/HCPCS: 96372; 99212; 99214; G0463

== ENCOUNTER 2022-07-18 15:28 | Emergency (ER) | payer OTHER, SELFPAY ==
[2022-07-18 15:40] VITALS: BP 107/76; PULSE 75; RESP 18; TEMP 36.9; O2SAT 98; BMI 17.4
[2022-07-18 15:47] VITALS: BP 107/76; PULSE 75; RESP 18; TEMP 36.9; O2SAT 98
[2022-07-18 16:03] LABS: UTC Strep Screen (Rapid) Negative (Negative)
--- NOTE | 2022-07-18 16:08 | EXP.UTC ---
Discharge Plan Disposition Patient Disposition: Home, Self-Care Condition: Good Prescriptions Prescriptions: New benzonatate 100 mg capsule 100 mg PO TID PRN (Reason: cough) Qty: 30 0RF No Action fluticasone propion-salmeterol [Advair Diskus] 250-50 mcg/dose blister with device inhalation Label Comments: INHALE 1 PUFF BY MOUTH TWICE DAILY fluticasone furoate-vilanterol 100-25 mcg/dose blister with device inhalation Label Comments: INHALE 1 PUFF BY MOUTH DAILY amoxicillin 400 mg/5 mL suspension for reconstitution 500 mg PO TID 10 Days Qty: 187.5 0RF albuterol sulfate [Ventolin HFA] 90 mcg/actuation HFA aerosol inhaler See Rx Instructions .ROUTE .COMPLEX Qty: 18 0RF Dose Instruction: INHALE 2 PUFFS BY MOUTH EVERY 4 TO 6 HOURS NEEDED FOR SHORTNESS OF BREATH FOR WHEEZING Rx Instructions: INHALE 2 PUFFS BY MOUTH EVERY 4 TO 6 HOURS NEEDED FOR SHORTNESS OF BREATH FOR WHEEZING Referrals Follow up/Referrals: Carlos Coles MD [Primary Care Provider] - See instructions Activity Restrictions/Add. Instructions Additional Instructions/Restrictions: *Monitor Temp, Over the counter Motrin or Tylenol as directed/as needed Tylenol every 4 hours and Motrin every 6 hours (as long as your family doctor has told you that you can take it) for fever or pain. and straight to ER if unable to lower temp less than 101.0 after medication given *Warm salt water gargles may help to soothe the throat *Throat Lozenges? *Warm fluids like tea with honey may help to soothe the throat? *Sleep elevated *Humidifier/Vaporizer Your throat swab was sent for culture. Those results are typically sent to your primary care. Be sure to follow up in 2-3 days with your family doctor/primary care physician if no improvement so they can review those result and treat if necessary. If you don?t have a primary care doctor, I recommend you get one but in the mean time, you will have to return to a walk in clinic Follow up IMMEDIATELY for new or worsening symptoms or no Noticeable improvement over the next 48-72 hours. 911 for difficulty breathing or swallowing Clinical Impressions Clinical Impression: Sore throat (viral) Instructions Patient Instructions: Cough, Sore Throat Discharge ED Provider: Mallika Valero [facility] [place] Stated complaint: sore throat; fever Mode of Arrival: Ambulatory Source of Information: Patient Limitations: No Limitations Time Seen by Provider: 07/18/22 16:08 Description of Symptoms (Recalled from Triage Doc. by RN): PATIENT C/O SORE THROAT AND COUGH X 2 DAYS HEENT Symptoms (Recalled from RN notes): Yes Resp Symptoms (Recalled from RN notes): Yes Skin Symptoms (Recalled from RN notes): No MS Symptoms (Recalled from RN notes): No Functional Status (Recalled from RN notes): WNL History of Present Illness Provider Complaint: Patient states that for the last couple of days she has been having cough and sore throat States that she was worried she may have strep throat so she came in to get checked Related Data Home Medications Medication Instructions Recorded Confirmed fluticasone 250 mcg-salmeterol 50 ea inhalation 05/19/22 05/19/22 mcg/dose blistr powdr for inhalation (Advair Diskus) fluticasone furoate 100 ea inhalation 05/19/22 05/19/22 mcg-vilanterol 25 mcg/dose inhalation powder Previous Rx's Medication Instructions Recorded amoxicillin 400 mg/5 mL oral 500 mg (6.25 mL) PO TID 10 days 05/19/22 suspension #187.5 mL Ventolin HFA 90 mcg/actuation See Rx Instructions .Route 07/13/22 aerosol inhaler (albuterol sulfate) .COMPLEX #18 grams benzonatate 100 mg capsule 100 mg PO TID PRN cough #30 caps 07/18/22 Allergies Allergy/AdvReac Type Severity Reaction Status Date / Time watermelon [WATERMELON] Allergy Unknown Verified 02/24/22 17:40 Worker's Comp Is this a Worker's Comp case?: No [facility] Disclaimer
== END 2022-07-18 16:22 | disposition home or self-care (01) ==
PROVIDERS: Emergency Provider Nurse Practitioner; PCP Emergency Medicine
DX: J02.9 Acute pharyngitis, unspecified (principal); B34.9 Viral infection, unspecified; J45.909 Unspecified asthma, uncomplicated; F41.9 Anxiety disorder, unspecified
CPT/HCPCS: 87880; 99212; 99214; G0463

== ENCOUNTER 2022-07-24 10:38 | Emergency (ER) | payer OTHER, SELFPAY ==
[2022-07-24 10:39] VITALS: BP 106/61; PULSE 73; RESP 18; TEMP 36.8; O2SAT 100; BMI 16.2
--- NOTE | 2022-07-24 11:06 | EXP.UTC ---
Discharge Plan Disposition Patient Disposition: Home, Self-Care Condition: Good Prescriptions Prescriptions: New triamcinolone acetonide 0.1 % cream 1 applic topical BID PRN (Reason: itching) Qty: 30 0RF methylprednisolone 4 mg Tablets,Dose Pack 4 mg PO DIRECTED Qty: 21 0RF No Action fluticasone propion-salmeterol [Advair Diskus] 250-50 mcg/dose blister with device inhalation Label Comments: INHALE 1 PUFF BY MOUTH TWICE DAILY fluticasone furoate-vilanterol 100-25 mcg/dose blister with device inhalation Label Comments: INHALE 1 PUFF BY MOUTH DAILY amoxicillin 400 mg/5 mL suspension for reconstitution 500 mg PO TID 10 Days Qty: 187.5 0RF albuterol sulfate [Ventolin HFA] 90 mcg/actuation HFA aerosol inhaler See Rx Instructions .ROUTE .COMPLEX Qty: 18 0RF Dose Instruction: INHALE 2 PUFFS BY MOUTH EVERY 4 TO 6 HOURS NEEDED FOR SHORTNESS OF BREATH FOR WHEEZING Rx Instructions: INHALE 2 PUFFS BY MOUTH EVERY 4 TO 6 HOURS NEEDED FOR SHORTNESS OF BREATH FOR WHEEZING benzonatate 100 mg capsule 100 mg PO TID PRN (Reason: cough) Qty: 30 0RF Referrals Follow up/Referrals: Carlos Coles MD [Primary Care Provider] - See instructions Activity Restrictions/Add. Instructions Additional Instructions/Restrictions: Don't put the topical steroids (triamcinolone) on your face or your groin. Follow up with your regular doctor. Clinical Impressions Clinical Impression: Bee sting Instructions Patient Instructions: DI for Insect Bites and Stings Discharge ED Provider: Navin Fleming [facility] General Stated complaint: Stung in right leg [id number] Time Seen by Provider: 07/24/22 11:06 History of Present Illness Provider Complaint: She states that she was stung on her right thigh yesterday by a wasp. She has had redness and itching at the site since then. Related Data Home Medications Medication Instructions Recorded Confirmed fluticasone 250 mcg-salmeterol 50 ea inhalation 05/19/22 05/19/22 mcg/dose blistr powdr for inhalation (Advair Diskus) fluticasone furoate 100 ea inhalation 05/19/22 05/19/22 mcg-vilanterol 25 mcg/dose inhalation powder Previous Rx's Medication Instructions Recorded amoxicillin 400 mg/5 mL oral 500 mg (6.25 mL) PO TID 10 days 05/19/22 suspension #187.5 mL Ventolin HFA 90 mcg/actuation See Rx Instructions .Route 07/13/22 aerosol inhaler (albuterol sulfate) .COMPLEX #18 grams benzonatate 100 mg capsule 100 mg PO TID PRN cough #30 caps 07/18/22 methylprednisolone 4 mg tablets in 4 mg PO DIRECTED #21 tabs 07/24/22 a dose pack triamcinolone acetonide 0.1 % 1 applic topical BID PRN itching 07/24/22 topical cream #30 grams Allergies Allergy/AdvReac Type Severity Reaction Status Date / Time watermelon [WATERMELON] Allergy Unknown Verified 02/24/22 17:40 [facility] Disclaimer: The information contained in this section may have been updated after the patient was seen, as this information can be updated by other users. Medical History Anxiety Asthma Migraines Surgical History History of tubal ligation Social History Smoking Status: Never smoker alcohol intake: never substance use type: denies use current occupational status: employed Travel in the last 8 weeks: None household members: other housing: other ROS Obtained: Yes All systems reviewed & no additional complaints except as documented Constitutional Constitutional: Denies chills and Denies fever(s) Eyes Eyes: Denies eye discharge ENT Ears, Nose, Mouth, and Throat: Denies dizziness, Denies otalgia and Denies sore throat Cardiovascular Cardiovascular: Denies chest pain Respiratory Respiratory: Denies shortness of breath, Denies chest congestion, Denies cough, De
[2022-07-24 12:14] VITALS: BP 106/61; PULSE 73; RESP 18; TEMP 36.8; O2SAT 100
== END 2022-07-24 12:19 | disposition home or self-care (01) ==
PROVIDERS: Emergency Provider Nurse Practitioner Family; PCP Emergency Medicine
DX: T63.441A Toxic effect of venom of bees, accidental (unintentional), initial encounter (principal); J45.909 Unspecified asthma, uncomplicated; F41.9 Anxiety disorder, unspecified; S80.861A Insect bite (nonvenomous), right lower leg, initial encounter
CPT/HCPCS: 99212; 99214; G0463

== ENCOUNTER 2022-10-10 18:04 | Emergency (ER) | payer OTHER, SELFPAY ==
[2022-10-10 18:10] VITALS: BP 129/96; PULSE 81; RESP 22; TEMP 36.8; O2SAT 97; BMI 17.9
--- NOTE | 2022-10-10 18:32 | EXP.UTC ---
Discharge Plan Disposition Patient Disposition: Home, Self-Care Condition: Good Prescriptions Prescriptions: No Action fluticasone furoate-vilanterol 100-25 mcg/dose blister with device inhalation Patient Comments: INHALE 1 PUFF BY MOUTH DAILY amoxicillin 400 mg/5 mL suspension for reconstitution 500 mg PO TID 10 Days Qty: 187.5 0RF fluticasone propion-salmeterol [Advair Diskus] 250-50 mcg/dose blister with device See Rx Instructions .ROUTE .COMPLEX Qty: 60 2RF Dose Instruction: INHALE 1 PUFF BY MOUTH TWICE DAILY Rx Instructions: INHALE 1 PUFF BY MOUTH TWICE DAILY albuterol sulfate [Ventolin HFA] 90 mcg/actuation HFA aerosol inhaler See Rx Instructions .ROUTE .COMPLEX Qty: 18 0RF Dose Instruction: INHALE 2 PUFFS BY MOUTH EVERY 4 TO 6 HOURS NEEDED FOR SHORTNESS OF BREATH FOR WHEEZING Rx Instructions: INHALE 2 PUFFS BY MOUTH EVERY 4 TO 6 HOURS NEEDED FOR SHORTNESS OF BREATH FOR WHEEZING benzonatate 100 mg capsule 100 mg PO TID PRN (Reason: cough) Qty: 30 0RF triamcinolone acetonide 0.1 % cream 1 applic topical BID PRN (Reason: itching) Qty: 30 0RF methylprednisolone 4 mg Tablets,Dose Pack 4 mg PO DIRECTED Qty: 21 0RF Referrals Follow up/Referrals: Carlos Coles MD [Primary Care Provider] - See instructions Activity Restrictions/Add. Instructions Additional Instructions/Restrictions: Follow up with your Family Doctor if symptoms continue Return if needed Straight to ER if you become unable to swallow or any life threatening symptoms Clinical Impressions Clinical Impression: Throat discomfort Discharge ED Provider: Mallika Valero [facility] General Stated complaint: feels like something stuck in throat Mode of Arrival: Ambulatory Source of Information: Patient Limitations: No Limitations Time Seen by Provider: 10/10/22 18:34 Description of Symptoms (Recalled from Triage Doc. by RN): PATIENT STATES THAT FOR THE PAST WEEK SHE FEELS LIKE SHE IS SWALLOWING SOMETHING . DENIES SOA, SORE THROAT HEENT Symptoms (Recalled from RN notes): Yes Resp Symptoms (Recalled from RN notes): No Skin Symptoms (Recalled from RN notes): No MS Symptoms (Recalled from RN notes): No Functional Status (Recalled from RN notes): WNL History of Present Illness Provider Complaint: Patient states that for the last week she has had feeling in her throat that at times she is swallowing something States that she has been able to drink ok and eat ok most of the time but at times feels like stuff gets hung up but then it would go down like she has something in her throat States that she has been able to talk and swallow ok but wanted to get it looked at when she had the same feeling earlier today Denies getting choked Denies swallowing FB able to talk ok Related Data Home Medications Medication Instructions Recorded Confirmed fluticasone furoate 100 ea inhalation 05/19/22 05/19/22 mcg-vilanterol 25 mcg/dose inhalation powder Previous Rx's Medication Instructions Recorded amoxicillin 400 mg/5 mL oral 500 mg (6.25 mL) PO TID 10 days 05/19/22 suspension #187.5 mL benzonatate 100 mg capsule 100 mg PO TID PRN cough #30 caps 07/18/22 methylprednisolone 4 mg tablets in 4 mg PO DIRECTED #21 tabs 07/24/22 a dose pack triamcinolone acetonide 0.1 % 1 applic topical BID PRN itching 07/24/22 topical cream #30 grams Advair Diskus 250 mcg-50 mcg/dose See Rx Instructions .Route 09/13/22 powder for inhalation (fluticasone .COMPLEX #60 ea propion-salmeterol) Ventolin HFA 90 mcg/actuation See Rx Instructions .Route 09/22/22 aerosol inhaler (albuterol sulfate) .COMPLEX #18 grams Allergies Allergy/AdvReac Type Severity Reaction Status Date / Time watermelon [WATERMELON] Allergy Unknown Verified 02/24/22 17:40 Worker's Comp Is this a Worker's Comp case?: No [facility] Disclaimer: The information contained in this section may have been updated after
--- NOTE | 2022-10-10 18:33 | XR_ITS ---
PROCEDURE INFORMATION: Exam: XR Soft Tissue Neck Exam date and time: 10/10/2022 6:56 PM Age: 32 years old Clinical indication: Throat pain; Additional info: Feels like lump in throat TECHNIQUE: Imaging protocol: Radiologic exam of the soft tissues of the neck. COMPARISON: CR XR CERVICAL SPINE 3V 05/22/2020 5:57 PM FINDINGS: Airway: Normal. No abnormal narrowing. Soft tissues: Normal. Normal epiglottis. Bones/joints: Degenerative changes of the lower cervical spine. IMPRESSION: No acute findings.
[2022-10-10 20:02] VITALS: BP 129/96; PULSE 81; RESP 22; TEMP 36.8; O2SAT 97
== END 2022-10-10 20:06 | disposition home or self-care (01) ==
PROVIDERS: Emergency Provider Nurse Practitioner; PCP Emergency Medicine
DX: R07.0 Pain in throat (principal); F41.9 Anxiety disorder, unspecified; J45.909 Unspecified asthma, uncomplicated
CPT/HCPCS: 70360; 99212; 99214; G0463

== ENCOUNTER 2022-11-08 14:11 | Emergency (ER) | payer OTHER, SELFPAY ==
[2022-11-08 14:50] VITALS: BP 134/71; PULSE 111; RESP 18; TEMP 36.8; O2SAT 96; BMI 17.6
[2022-11-08 15:11] LABS: UTC Strep Screen (Rapid) Positive (Negative)
--- NOTE | 2022-11-08 15:16 | EXP.UTC ---
Discharge Plan Disposition Patient Disposition: Home, Self-Care Condition: Good Prescriptions Prescriptions: New amoxicillin [amoxicillin] 875 mg tablet 875 mg PO Q12H Qty: 20 0RF [id number]-zlfqiykqa-QD [Bromfed DM] 2-30-10 mg/5 mL Syrup 5 ml PO Q6H PRN (Reason: Cough) Qty: 240 0RF prednisone 10 mg tablet 10 mg PO BID 3 Days Qty: 6 0RF No Action fluticasone furoate-vilanterol 100-25 mcg/dose blister with device inhalation Patient Comments: INHALE 1 PUFF BY MOUTH DAILY amoxicillin 400 mg/5 mL suspension for reconstitution 500 mg PO TID 10 Days Qty: 187.5 0RF fluticasone propion-salmeterol [Advair Diskus] 250-50 mcg/dose blister with device See Rx Instructions .ROUTE .COMPLEX Qty: 60 2RF Dose Instruction: INHALE 1 PUFF BY MOUTH TWICE DAILY Rx Instructions: INHALE 1 PUFF BY MOUTH TWICE DAILY albuterol sulfate [Ventolin HFA] 90 mcg/actuation HFA aerosol inhaler See Rx Instructions .ROUTE .COMPLEX Qty: 18 0RF Dose Instruction: INHALE 2 PUFFS BY MOUTH EVERY 4 TO 6 HOURS NEEDED FOR SHORTNESS OF BREATH FOR WHEEZING Rx Instructions: INHALE 2 PUFFS BY MOUTH EVERY 4 TO 6 HOURS NEEDED FOR SHORTNESS OF BREATH FOR WHEEZING benzonatate 100 mg capsule 100 mg PO TID PRN (Reason: cough) Qty: 30 0RF triamcinolone acetonide 0.1 % cream 1 applic topical BID PRN (Reason: itching) Qty: 30 0RF methylprednisolone 4 mg Tablets,Dose Pack 4 mg PO DIRECTED Qty: 21 0RF Referrals Follow up/Referrals: Carlos Coles MD [Primary Care Provider] - See instructions Activity Restrictions/Add. Instructions Additional Instructions/Restrictions: Drink plenty of fluids. Take tylenol or ibuprofen for pain or fever. Take the medications as directed. Follow up with your regular doctor. GO TO THE ER FOR ANY WORSENING SYMPTOMS Throw your tooth brush away and get a new one. Clinical Impressions Clinical Impression: Strep pharyngitis Instructions Patient Instructions: Strep Throat, DI for Strep Throat Discharge ED Provider: Navin Fleming [facility] General Stated complaint: chest congestion, sore throat, ear pain Mode of Arrival: Ambulatory Source of Information: Patient Limitations: No Limitations Time Seen by Provider: 11/08/22 15:16 Description of Symptoms (Recalled from Triage Doc. by RN): Sore throat, bilateral ears, chest congestion, and chills HEENT Symptoms (Recalled from RN notes): Yes Resp Symptoms (Recalled from RN notes): No Skin Symptoms (Recalled from RN notes): No MS Symptoms (Recalled from RN notes): No Functional Status (Recalled from RN notes): n/a History of Present Illness Provider Complaint: She states that for the past 3 days she has had sore throat, chills, fever, and malaise. Related Data Home Medications Medication Instructions Recorded Confirmed fluticasone furoate 100 ea inhalation 05/19/22 05/19/22 mcg-vilanterol 25 mcg/dose inhalation powder Previous Rx's Medication Instructions Recorded amoxicillin 400 mg/5 mL oral 500 mg (6.25 mL) PO TID 10 days 05/19/22 suspension #187.5 mL benzonatate 100 mg capsule 100 mg PO TID PRN cough #30 caps 07/18/22 methylprednisolone 4 mg tablets in 4 mg PO DIRECTED #21 tabs 07/24/22 a dose pack triamcinolone acetonide 0.1 % 1 applic topical BID PRN itching 07/24/22 topical cream #30 grams Advair Diskus 250 mcg-50 mcg/dose See Rx Instructions .Route 09/13/22 powder for inhalation (fluticasone .COMPLEX #60 ea propion-salmeterol) Ventolin HFA 90 mcg/actuation See Rx Instructions .Route 11/08/22 aerosol inhaler (albuterol sulfate) .COMPLEX #18 grams amoxicillin 875 mg tablet 875 mg PO Q12H #20 tabs 11/08/22 fqvqezmpukhynni-glmcwfuuxfwgcrx-IH 5 ml PO Q6H PRN Cough #240 mL 11/08/22 2 mg-30 mg-10 mg/5 mL oral syrup (Bromfed DM) prednisone 10 mg tablet 10 mg PO BID 3 days #6 tabs 11/08/22 Allergies Allergy/AdvReac Type Severity Reaction
[2022-11-08 15:47] VITALS: BP 134/71; PULSE 111; RESP 18; TEMP 36.8; O2SAT 96
== END 2022-11-08 15:47 | disposition home or self-care (01) ==
PROVIDERS: Emergency Provider Nurse Practitioner Family; PCP Emergency Medicine
DX: J02.0 Streptococcal pharyngitis (principal); R50.9 Fever, unspecified; R53.81 Other malaise; J45.909 Unspecified asthma, uncomplicated; F41.9 Anxiety disorder, unspecified
CPT/HCPCS: 87880; 99212; 99214; G0463

== ENCOUNTER → 2022-12-08 23:27 | Outpatient (CLI) | payer OTHER, SELFPAY ==
[2022-12-08 18:20] LABS: Adenovirus,PCR Not Detected (NotDetected); Coronavirus 229E Not Detected (NotDetected); Coronavirus NL63 Not Detected (NotDetected); Coronavirus OC43 Not Detected (NotDetected); Coronovirus HKU1,PCR Not Detected (NotDetected); Human Metapneumovirus Not Detected (NotDetected); Influenza A, PCR Not Detected (NotDetected); Influenza AH1, 2009 Not Detected (NotDetected); Influenza AH1, PCR Not Detected (NotDetected); Influenza AH3,PCR Not Detected (NotDetected); Influenza B, PCR Not Detected (NotDetected); Parainfluenza 1, PCR Not Detected (NotDetected); Parainfluenza 2, PCR Not Detected (NotDetected); Rhinovirus/Enterovirus Not Detected (NotDetected)
[2022-12-08 18:21] LABS: Coronavirus 19, PCR Not Detected (NotDetected); Parainfluenza 3, PCR Not Detected (NotDetected); Parainfluenza 4, PCR Not Detected (NotDetected); Respiratory Syncytial Virus Not Detected (NotDetected)
== END ==
PROVIDERS: PCP Emergency Medicine; Visit Provider Student in an Organized Health Care Education/Training Program
DX: R43.2 Parageusia (principal); R09.81 Nasal congestion; R05.8 Other specified cough; Z20.828 Contact with and (suspected) exposure to other viral communicable diseases
CPT/HCPCS: 87581; 87632; 87635; 87798

== ENCOUNTER → 2023-02-08 23:00 | Outpatient (CLI) | payer OTHER, SELFPAY ==
[2023-02-08 18:45] LABS: Basophils % 0.3 % (0.1-2.0); Eosinophils # 0.3 K/mm3 (0.0-0.4); Eosinophils % 2.8 % (0.1-12.0); Hematocrit 40.8 % (37.0-47.0); Hemoglobin 14.1 g/dL (12.2-16.2); Lymphocytes % 18.4 % (10-50); Mean Corpuscular HGB Conc 34.6 g/dL (31.8-35.4); Mean Corpuscular Hemoglobin 29.6 pg (27.0-31.2); Mean Corpuscular Volume 85.5 fl (81-99); Mean Platelet Volume 8.8 fl (7.4-10.4); Monocytes # 0.4 K/mm3 (0.1-1.0); Monocytes % 3.5 % (1.7-9.3); Neutrophils # 8.1 K/mm3 (1.8-7.8); Platelet Count 216 K/mm3 (142-424); Red Blood Count 4.77 M/mm3 (4.20-5.40); Red Cell Distribution Width 12.9 % (11.5-17.5); White Blood Count 10.9 K/mm3 (4.8-10.8)
[2023-02-08 18:50] LABS: Alanine Aminotransferase 27 U/L (12-78); Albumin Level 4.3 g/dl (3.5-5.0); Albumin/Globulin Ratio 1.4 (1.1-1.8); Alkaline Phosphatase 64 U/L (38-126); Aspartate Amino Transferase 33 U/L (14-36); Bilirubin,Total 0.8 mg/dl (0.2-1.3); Blood Urea Nitrogen 10 mg/dl (7-17); Calcium 9.3 mg/dl (8.4-10.2); Carbon Dioxide 28 mmol/L (22.0-30.0); Chloride 102 mmol/L (98-107); Cholesterol 178 mg/dl (140-200); Estimated Glomerular Filt Rate 98 ml/min (>60); GFR (African American) 118 ML/MIN (>60); Glucose 87 mg/dl (74-100); HDL Cholesterol 90 mg/dl (40-60); Sodium 134 mmol/L (136-145); Total Protein,Serum 7.3 g/dl (6.3-8.2); Triglycerides 48 mg/dl (30-150); VLDL Cholesterol 10 mg/dL (0-40)
[2023-02-08 19:00] LABS: Direct LDL Cholesterol 79.77 mg/dL (100-129)
[2023-02-08 19:08] LABS: 25-OH Vitamin D, Total 44.2 ng/mL (30-100)
== END ==
LOC: LAB.DROPOF 02-09 00:33
PROVIDERS: PCP Student in an Organized Health Care Education/Training Program; Visit Provider Student in an Organized Health Care Education/Training Program
DX: G43.909 Migraine, unspecified, not intractable, without status migrainosus (principal); R53.83 Other fatigue; Z79.899 Other long term (current) drug therapy
CPT/HCPCS: 80053; 80061; 82306; 84443; 85025

== ENCOUNTER 2023-02-16 07:07 | Emergency (ER) | payer OTHER, SELFPAY ==
[2023-02-16 07:15] VITALS: BP 106/64; PULSE 97; RESP 18; TEMP 36.8; O2SAT 98; BMI 18.5
--- NOTE | 2023-02-16 07:18 | ED_ITS ---
Discharge Plan Disposition Patient Disposition: Home, Self-Care Prescriptions Prescriptions: New [id number] [Bromfed DM] 2-30-10 mg/5 mL syrup 5 ml PO Q6H PRN (Reason: cold symptoms) Qty: 118 0RF No Action montelukast [Singulair] 10 mg tablet 10 mg PO DAILY Ubrelvy 100 mg tablet 100 mg PO ONCE PRN (Reason: migraine) Qty: 14 0RF fluticasone furoate-vilanterol 100-25 mcg/dose blister with device inhalation Patient Comments: INHALE 1 PUFF BY MOUTH DAILY fluticasone propionate [Allergy Relief (fluticasone)] 50 mcg/actuation spray,suspension 1 spray intranasal DAILY Qty: 16 2RF Rx Instructions: administer into each nostril levocetirizine 5 mg tablet 5 mg PO DAILY Qty: 30 2RF hydroxyzine HCl 25 mg tablet 25 mg PO HS Qty: 30 2RF Qulipta 60 mg tablet 60 mg PO DAILY Qty: 30 3RF fluticasone propion-salmeterol [Advair Diskus] 250-50 mcg/dose blister with device See Rx Instructions .ROUTE .COMPLEX Qty: 60 2RF Dose Instruction: INHALE 1 PUFF BY MOUTH TWICE DAILY Rx Instructions: INHALE 1 PUFF BY MOUTH TWICE DAILY albuterol sulfate [Ventolin HFA] 90 mcg/actuation HFA aerosol inhaler See Rx Instructions .ROUTE .COMPLEX Qty: 18 0RF Dose Instruction: INHALE 2 PUFFS BY MOUTH EVERY 4 TO 6 HOURS NEEDED FOR SHORTNESS OF BREATH FOR WHEEZING Rx Instructions: INHALE 2 PUFFS BY MOUTH EVERY 4 TO 6 HOURS NEEDED FOR SHORTNESS OF BREATH FOR WHEEZING Referrals Follow up/Referrals: Lulu Zuniga PA [Primary Care Provider] - See instructions Activity Restrictions/Add. Instructions Additional Instructions/Restrictions: At this time it was felt you are safe to be discharged home. If new or worsening symptoms please do not hesitate to return the emergency department. If symptoms persist please follow-up with your family doctor as you are able. Please take your medication as prescribed. Clinical Impressions Clinical Impression: Acute viral syndrome Discharge ED Provider: Cm Gibbs General Adult HPI General Chief complaint: Fever Stated complaint: 101 fever, body aches, congestion Time Seen by Provider: 02/16/23 07:15 History of Present Illness HPI narrative: Patient is a 32-year-old female with no pertinent past medical history presents emergency department for evaluation of bodyaches, cough, congestion, sore throa t. Onset was acute, waking her this morning. No other acute complaints at this time. Related Data Home Medications Medication Instructions Recorded Confirmed fluticasone furoate 100 ea inhalation 05/19/22 02/08/23 mcg-vilanterol 25 mcg/dose inhalation powder montelukast 10 mg tablet 10 mg PO DAILY 01/21/23 02/08/23 (Singulair) Previous Rx's Medication Instructions Recorded fluticasone propionate 50 1 spray intranasal DAILY #16 grams 12/08/22 mcg/actuation nasal spray,suspension (Allergy Relief (fluticasone)) levocetirizine 5 mg tablet 5 mg PO DAILY #30 tabs 12/08/22 Advair Diskus 250 mcg-50 mcg/dose See Rx Instructions .Route 12/10/22 powder for inhalation (fluticasone .COMPLEX #60 ea propion-salmeterol) ubrogepant 100 mg tablet (Ubrelvy) 100 mg PO ONCE PRN migraine #14 01/21/23 tabs Ventolin HFA 90 mcg/actuation See Rx Instructions .Route 02/08/23 aerosol inhaler (albuterol sulfate) .COMPLEX #18 grams atogepant 60 mg tablet (Qulipta) 60 mg PO DAILY #30 tabs 02/08/23 hydroxyzine HCl 25 mg tablet 25 mg PO HS #30 tabs 02/08/23 sqvyjsbbqefjvdb-wbcapfcsyfephvg-QW 5 ml PO Q6H PRN cold symptoms #118 02/16/23 2 mg-30 mg-10 mg/5 mL oral syrup mL (Bromfed DM) Allergies Allergy/AdvReac Type Severity Reaction Status Date / Time watermelon [WATERMELON] Allergy Unknown Verified 02/16/23 07:33 [facility] Disclaimer: The information contained in this section may have been updated after the patient was seen, as this information can be updated by other users. Medical History Anxiety Asthma Migraines Surgical History History of tubal ligation Family History (Updated 02/08/23 @ 13:38 by Amadou Milner) Other No significant family history Social History Smoking Status: Never smoker alcohol intake: never substance use type: denies use current occupational status: employed Travel in the last 8 weeks: None household members: other housing: other ROS Obtained: Yes Systems reviewed as appropriate & no additional complaints except as documented Physical Exam General General appearance: alert and in no apparent distress Head Head exam: atraumatic and normocephalic Eye Eye exam: Present PERRL and EOMI ENT ENT exam: Present mucous membranes moist; Absent normal oropharynx (Erythematous posterior oropharynx without exudate, uvula midline.) Neck Neck exam: Present normal inspection Chest Chest inspection: Present normal inspection and symmetric chest wall rise Respiratory Respiratory exam: Present normal lung sounds bilaterally; Absent respiratory distress Cardiovascular Cardiovascular exam: Present regular rate and normal rhythm Abdominal Exam Abdominal exam: Present soft Extremities Exam Extremities exam: Present normal inspection Neurological Exam Neurological exam: Present alert Psychiatric Psychiatric exam: Present normal affect Skin Skin exam: Present warm and dry Medical Decision Making Quentin Inquiry Pt receiving controlled substance: No Vital Signs: 02/16/23 07:15 Temperature 98.2 F Temperature Source Oral Pulse Rate [Left Radial] 97 H Respiratory Rate 18 Blood Pressure [Right Arm] 106/64 L Blood Pressure Mean [Right Arm] 78 Blood Pressure Source [Right Arm] Automatic Cuff Blood Pressure Position [Right Arm] Sitting 02 Sat by Pulse Oximetry 98 Oxygen Delivery Method Room Air Lab Data Lab Results 02/16/23 07:16: Group A Strep Rapid Negative Orders (Tests/Meds): ED MEDICATIONS Discontinued Medications Generic Name Dose Route Start Last Admin Trade Name Hannah PRN Reason Stop Dose Admin Acetaminophen 500 mg 02/16/23 07:18 02/16/23 07:35 Acetaminophen 500mg Tab PO 02/16/23 07:19 500 mg ONCE ONE Administration Ibuprofen 400 mg 02/16/23 07:18 02/16/23 07:35 Ibuprofen 400 Mg Tablet PO 02/16/23 07:19 400 mg ONCE ONE Administration ORDERS Category Date Time Status Rapid PCR Covid and Flu A/B Stat Lab 02/16/23 07:16 Received Strep Scrn Group A (Rapid) Stat Lab 02/16/23 07:16 Completed Strep Screen Confirmation Stat Micro 02/16/23 07:16 Received Medical Decision Narrative: In summary patient is a 32-year-old female with past medical history described above who presents emergency department for evaluation of cough, congestion, sore throat, myalgias. Patient is hemodynamically stable nontoxic-appearing upon arrival. Differential diagnosis includes viral syndrome, strep pharyngitis, influenza, among others. Workup will be limited to viral swab, strep swab. Workup with chest x-ray was considered but will be deferred given that patient is in no respiratory distress and is clear to auscultation all lung vazquez. Initial interventions include Tylenol and ibuprofen. Patient underwent p.o. trial with successful. Strep swab negative. Patient is appropriate for discharge at this time. Critical Care Critical Care Time Critical Care Time: No
[2023-02-16 07:24] LABS: Coronavirus 19, PCR Not Detected (NotDetected); Influenza A, PCR Not Detected (NotDetected); Influenza B, PCR Not Detected (NotDetected)
[2023-02-16 07:30] VITALS: BP 107/70; PULSE 92; O2SAT 98
[2023-02-16] MEDS: IBUPROFEN 400 MG TABLET PO (07:35)
[2023-02-16] MEDS: ACETAMINOPHEN 500MG TAB 500 MG PO (07:35)
[2023-02-16 07:37] LABS: Strep Scrn Group A (Rapid) Negative (Negative)
[2023-02-16 07:48] VITALS: BP 115/67; PULSE 87; PULSE 95; RESP 18; TEMP 36.7; O2SAT 97
== END 2023-02-16 07:51 | disposition home or self-care (01) ==
PROVIDERS: Emergency Provider Emergency Medicine; PCP Physician Assistant
DX: R05.9 Cough, unspecified (principal); R09.81 Nasal congestion; J02.9 Acute pharyngitis, unspecified; B34.9 Viral infection, unspecified; J45.909 Unspecified asthma, uncomplicated
CPT/HCPCS: 87430; 87636; 99283

== ENCOUNTER 2023-02-22 10:44 | Outpatient (CLI) | payer OTHER, SELFPAY ==
[2023-02-22 17:51] LABS: Adenovirus,PCR Not Detected (NotDetected); Coronavirus 19, PCR Not Detected (NotDetected); Coronavirus 229E Not Detected (NotDetected); Coronavirus NL63 Not Detected (NotDetected); Coronavirus OC43 Not Detected (NotDetected); Coronovirus HKU1,PCR Not Detected (NotDetected); Human Metapneumovirus Not Detected (NotDetected); Influenza A, PCR Not Detected (NotDetected); Influenza AH1, 2009 Not Detected (NotDetected); Influenza AH1, PCR Not Detected (NotDetected); Influenza AH3,PCR Not Detected (NotDetected); Influenza B, PCR Not Detected (NotDetected); Parainfluenza 1, PCR Not Detected (NotDetected); Parainfluenza 2, PCR Not Detected (NotDetected); Parainfluenza 3, PCR Not Detected (NotDetected); Parainfluenza 4, PCR Not Detected (NotDetected); Respiratory Syncytial Virus Not Detected (NotDetected); Rhinovirus/Enterovirus Not Detected (NotDetected)
[2023-02-22 18:14] LABS: Basophils % 0.3 % (0.1-2.0); Eosinophils # 0.2 K/mm3 (0.0-0.4); Eosinophils % 2.4 % (0.1-12.0); Hemoglobin 13.8 g/dL (12.2-16.2); Lymphocytes # 1.5 K/mm3 (0.7-4.5); Lymphocytes % 16.1 % (10-50); Mean Corpuscular HGB Conc 33.7 g/dL (31.8-35.4); Mean Corpuscular Hemoglobin 28.3 pg (27.0-31.2); Mean Corpuscular Volume 84.1 fl (81-99); Mean Platelet Volume 9.8 fl (7.4-10.4); Monocytes # 0.4 K/mm3 (0.1-1.0); Monocytes % 4.6 % (1.7-9.3); Neutrophils # 7.1 K/mm3 (1.8-7.8); Neutrophils % 76.6 % (37.0-80.0); Platelet Count 216 K/mm3 (142-424); Red Blood Count 4.88 M/mm3 (4.20-5.40); Red Cell Distribution Width 12.9 % (11.5-17.5); White Blood Count 9.2 K/mm3 (4.8-10.8)
[2023-02-22 18:26] LABS: Alanine Aminotransferase 26 U/L (12-78); Albumin/Globulin Ratio 1.3 (1.1-1.8); Alkaline Phosphatase 79 U/L (38-126); Aspartate Amino Transferase 29 U/L (14-36); Bilirubin,Total 0.7 mg/dl (0.2-1.3); Blood Urea Nitrogen 6 mg/dl (7-17); Calcium 8.8 mg/dl (8.4-10.2); Carbon Dioxide 25 mmol/L (22.0-30.0); Chloride 104 mmol/L (98-107); Estimated Glomerular Filt Rate 117 ml/min (>60); GFR (African American) 141 ML/MIN (>60); Glucose 92 mg/dl (74-100); Sodium 134 mmol/L (136-145)
== END 2023-02-22 23:59 ==
LOC: LAB.DROPOF 02-23 10:44
PROVIDERS: PCP Student in an Organized Health Care Education/Training Program; Visit Provider Student in an Organized Health Care Education/Training Program
DX: J02.8 Acute pharyngitis due to other specified organisms (principal); B97.89 Other viral agents as the cause of diseases classified elsewhere; E87.1 Hypo-osmolality and hyponatremia; D72.829 Elevated white blood cell count, unspecified
CPT/HCPCS: 80053; 85025; 87070; 87581; 87632; 87635; 87798

== ENCOUNTER 2023-03-04 12:14 | Outpatient (CLI) | payer OTHER, SELFPAY ==
[2023-03-04 12:18] LABS: Microscopic, Urine URINE MICROSCOPIC (MICROSCOPIC)
[2023-03-04 12:48] LABS: Appearance,Urine CLEAR (Clear); Bilirubin,Urine Negative (Negative); Blood, Urine Negative (Negative); Color,Urine YELLOW (Yellow); Glucose,Urine (UA) Negative (Negative); Ketones,Urine Negative (Negative); Leukocyte Esterase,Urine Negative (Negative); Nitrate,Urine Negative (Negative); Protein,Urine Negative (Negative); Specific Gravity, Urine 1.025 (1.005-1.030); Urobilinogen,Urine 0.2 EU/dl (0.2)
[2023-03-04 13:06] LABS: Bacteria,Urine 2+ /lpf; RBC,Urine Occasional #/hpf (0-3)
[2023-03-05 22:35] LABS: Osmolality, Urine 813 mOsmol/kg (.)
[2023-03-07 08:40] LABS: Sodium, Urine 77 mmol/L (Not Estab.)
== END 2023-03-04 23:59 ==
LOC: LAB 12:14
PROVIDERS: PCP Student in an Organized Health Care Education/Training Program; Visit Provider Student in an Organized Health Care Education/Training Program
DX: E87.1 Hypo-osmolality and hyponatremia (principal)
CPT/HCPCS: 81001; 83935; 84300; 87086

== ENCOUNTER 2023-03-19 10:00 | Outpatient (CLI) | payer OTHER, SELFPAY ==
[2023-03-20 15:18] LABS: Adrenocorticotropic Hormone 10.1 pg/mL (7.2-63.3)
== END 2023-03-19 23:59 ==
LOC: LAB 10:01
PROVIDERS: PCP Student in an Organized Health Care Education/Training Program; Visit Provider Student in an Organized Health Care Education/Training Program
DX: R82.998 Other abnormal findings in urine (principal)
CPT/HCPCS: 36415; 82024; 82533

== ENCOUNTER 2023-04-14 16:50 | Emergency (ER) | payer OTHER, SELFPAY ==
[2023-04-14 16:52] VITALS: BP 107/51; PULSE 114; RESP 14; TEMP 37.8; O2SAT 98; BMI 18.7
--- NOTE | 2023-04-14 17:24 | HMH.EDGENADL ---
Discharge Plan Disposition Patient Disposition: Home, Self-Care Prescriptions Prescriptions: No Action montelukast [Singulair] 10 mg tablet 10 mg PO DAILY Ubrelvy 100 mg tablet 100 mg PO ONCE PRN (Reason: migraine) Qty: 14 0RF prednisolone 15 mg/5 mL solution 20 mg PO DAILY 5 Days Qty: 33.334 0RF promethazine-DM 6.25-15 mg/5 mL syrup 5 ml PO Q4-6H PRN (Reason: cough) Qty: 118 0RF fluticasone furoate-vilanterol 100-25 mcg/dose blister with device inhalation Patient Comments: INHALE 1 PUFF BY MOUTH DAILY fluticasone propionate [Allergy Relief (fluticasone)] 50 mcg/actuation spray,suspension 1 spray intranasal DAILY Qty: 16 2RF Rx Instructions: administer into each nostril levocetirizine 5 mg tablet 5 mg PO DAILY Qty: 30 2RF hydroxyzine HCl 25 mg tablet 25 mg PO HS Qty: 30 2RF Qulipta 60 mg tablet 60 mg PO DAILY Qty: 30 3RF fluticasone propion-salmeterol [Advair Diskus] 250-50 mcg/dose blister with device See Rx Instructions .ROUTE .COMPLEX Qty: 60 2RF Dose Instruction: INHALE 1 PUFF BY MOUTH TWICE DAILY Rx Instructions: INHALE 1 PUFF BY MOUTH TWICE DAILY azithromycin [Zithromax Z-Pj] 250 mg tablet See Rx Instructions PO .COMPLEX Qty: 6 0RF Rx Instructions: For 250 mg dose pack: take 500 mg today (day 1), then 250 mg for 4 days (days 2-5) PO albuterol sulfate [Ventolin HFA] 90 mcg/actuation HFA aerosol inhaler See Rx Instructions .ROUTE .COMPLEX Qty: 18 0RF Dose Instruction: INHALE 2 PUFFS BY MOUTH EVERY 4 TO 6 HOURS NEEDED FOR SHORTNESS OF BREATH FOR WHEEZING Rx Instructions: INHALE 2 PUFFS BY MOUTH EVERY 4 TO 6 HOURS NEEDED FOR SHORTNESS OF BREATH FOR WHEEZING Referrals Follow up/Referrals: Tari Powell PA [Primary Care Provider] - See instructions Activity Restrictions/Add. Instructions Additional Instructions/Restrictions: Please alternate Tylenol and Motrin every 4 hours as needed for your symptoms. To the ER for any new or worsening symptoms. Clinical Impressions Clinical Impression: Influenza A Discharge ED Provider: María Salas General Adult HPI <CELIA Switf - Last Filed: 04/14/23 19:28> General Chief complaint: Weakness Stated complaint: body aches fever SOTELO Dizzy Time Seen by Provider: 04/14/23 17:24 Mode of Arrival: Ambulatory Source of Information: Patient Limitations: No Limitations Description of Symptoms (Recalled from ER Triage Doc. by RN): pt c/o fever, chills and body aches since this am. History of Present Illness HPI narrative: Patient is a 32-year-old female presents with acute onset of subjective fever chills body aches dry nonproductive cough since early this morning. She has not had any sick contacts that she knows of. She denies hemoptysis hematochezia melena nausea vomit diarrhea. She denies cardiac chest pain. Related Data Home Medications Medication Instructions Recorded Confirmed fluticasone furoate 100 ea inhalation 05/19/22 02/22/23 mcg-vilanterol 25 mcg/dose inhalation powder montelukast 10 mg tablet 10 mg PO DAILY 01/21/23 02/22/23 (Singulair) Previous Rx's Medication Instructions Recorded fluticasone propionate 50 1 spray intranasal DAILY #16 grams 12/08/22 mcg/actuation nasal spray,suspension (Allergy Relief (fluticasone)) levocetirizine 5 mg tablet 5 mg PO DAILY #30 tabs 12/08/22 Advair Diskus 250 mcg-50 mcg/dose See Rx Instructions .Route 12/10/22 powder for inhalation (fluticasone .COMPLEX #60 ea propion-salmeterol) ubrogepant 100 mg tablet (Ubrelvy) 100 mg PO ONCE PRN migraine #14 01/21/23 tabs atogepant 60 mg tablet (Qulipta) 60 mg PO DAILY #30 tabs 02/08/23 hydroxyzine HCl 25 mg tablet 25 mg PO HS #30 tabs 02/08/23 prednisolone 15 mg/5 mL oral 20 mg (6.6667 mL) PO DAILY 5 days 02/22/23 solution #33.334 mL promethazine-DM 6.25 mg-15 mg/5 mL 5 ml PO Q4-6H PRN cough #118 mL 02/22/23 oral syrup azithromycin 250 mg tablet See Rx Instructions PO .COMPLEX #6 02/23/23 (Zithromax Z-Pj) tabs Ventolin HFA 90 mcg/actuation See Rx Instructions .Route 04/06/23 aerosol inhaler (albuterol sulfate) .COMPLEX #18 grams Allergies Allergy/AdvReac Type Severity Reaction Status Date / Time watermelon [WATERMELON] Allergy Unknown Verified 02/22/23 11:43 [facility] <CELIA Swift - Last Filed: 04/14/23 19:28> [facility] Disclaimer: The information contained in this section may have been updated after the patient was seen, as this information can be updated by other users. Medical History Anxiety Asthma Migraines Surgical History History of tubal ligation Family History Other No significant family history Social History Smoking Status: Never smoker alcohol intake: never substance use type: denies use current occupational status: employed Travel in the last 8 weeks: None household members: other housing: other <CELIA Swift - Last Filed: 04/14/23 19:28> ROS Obtained: Yes Systems reviewed as appropriate & no additional complaints except as documented Physical Exam <CELIA Swift - Last Filed: 04/14/23 19:28> Narrative Physical exam: Patient is a well-nourished well-developed and well-appearing 32-year-old female otherwise no acute distress General General appearance: alert and in no apparent distress Head Head exam: atraumatic and normal inspection Eye Eye exam: Present normal appearance, PERRL and EOMI ENT ENT exam: Present other (Patient has poor dentition but otherwise no evidence of abscess. Patient has erythema in posterior pharynx but no exudate. Patient has no cervical lymphadenopathy. Oropharynx is patent but with dry mucosa) Neck Neck exam: Present normal inspection and full ROM Chest Chest inspection: Present normal inspection and symmetric chest wall rise Respiratory Respiratory exam: Present normal lung sounds bilaterally; Absent accessory muscle use Cardiovascular Cardiovascular exam: Present regular rate, normal rhythm, tachycardia, normal heart sounds, +S1 and +S2 Abdominal Exam Abdominal exam: Present soft and normal bowel sounds; Absent tenderness, guarding or rebound Extremities Exam Extremities exam: Present normal inspection and full ROM Neurological Exam Neurological exam: Present alert and oriented X3 Psychiatric Psychiatric exam: Present normal affect and normal mood Skin Skin exam: Present warm, dry and normal color Medical Decision Making <CELIA Swift - Last Filed: 04/14/23 19:28> Medical Records Medical records reviewed: Yes I reviewed the patient's medical records. Quentin Inquiry Pt receiving controlled substance: No Vital Signs: 04/14/23 16:52 04/14/23 18:20 04/14/23 19:01 Temperature 100.1 F H 101.3 F H 99.4 F Temperature Source Oral Oral Oral Pulse Rate 87 Pulse Rate [Left] 114 H Respiratory Rate 14 14 Blood Pressure 107/80 L Blood Pressure [Right Arm] 107/51 L Blood Pressure Mean [Right Arm] 69 02 Sat by Pulse Oximetry 98 Lab Data Lab Results 04/14/23 16:56: SARS-CoV-2 (PCR) Not detected, Influenza A Untype (PCR) Not detected, Influenza Type B (PCR) Detected A 04/14/23 17:36: Group A Strep Rapid Negative Orders (Tests/Meds): ED MEDICATIONS Discontinued Medications Generic Name Dose Route Start Last Admin Trade Name Hannah PRN Reason Stop Dose Admin Acetaminophen 1,000 mg 04/14/23 18:19 04/14/23 18:31 Acetaminophen 500mg Tab PO 04/14/23 18:20 1,000 mg ONCE ONE Administration Ketorolac Tromethamine 15 mg 04/14/23 18:19 04/14/23 18:31 Ketorolac 30mg/Ml Vial IM 04/14/23 18:20 15 mg ONCE ONE Administration ORDERS Category Date Time Status Rapid PCR Covid and Flu A/B Stat Lab 04/14/23 16:56 Completed Rapid Strep Scrn Group A [Strep Scrn Group A (Rapid)] Lab 04/14/23 17:36 Completed Stat Strep Screen Confirmation Stat Micro 04/14/23 17:36 Received Medical Decision Narrative: In summary patient is a 32-year-old female who presents to the emergency department for evaluation of signs and symptoms of a respiratory infection with fever cough body aches. Patient is tachycardic normotensive on arrival with a temperature of 100.1. Physical exam is nonfocal with slightly elevated heart rate without any murmurs gallops rubs or thrills. Steer pharynx inflamed dry but without exudate. Breath sounds are clear and equal bilaterally.. Differential diagnosis includes viral versus bacterial upper respiratory tract infection. Initial workup will be conducted with flu COVID and strep swabs. Initial interventions include acetaminophen Toradol. Initial workup reviewed by me shows influenza positive strep negative. Upon repeat evaluation patient had defervesced since of her fever and feels slightly better after administration of acetaminophen and Toradol. Given this propria for discharge home with recommendations to continue alternating Tylenol Motrin every 4 hours for fever headache body aches as needed. <María Salas MD - Last Filed: 04/14/23 19:54> Vital Signs: 04/14/23 16:52 04/14/23 18:20 04/14/23 19:01 Temperature 100.1 F H 101.3 F H 99.4 F Temperature Source Oral Oral Oral Pulse Rate 87 Pulse Rate [Left] 114 H Respiratory Rate 14 14 Blood Pressure 107/80 L Blood Pressure [Right Arm] 107/51 L Blood Pressure Mean [Right Arm] 69 02 Sat by Pulse Oximetry 98 Lab Data Lab Results 04/14/23 16:56: SARS-CoV-2 (PCR) Not detected, Influenza A Untype (PCR) Not detected, Influenza Type B (PCR) Detected A 04/14/23 17:36: Group A Strep Rapid Negative Orders (Tests/Meds): ED MEDICATIONS Discontinued Medications Generic Name Dose Route Start Last Admin Trade Name Freq PRN Reason Stop Dose Admin Acetaminophen 1,000 mg 04/14/23 18:19 04/14/23 18:31 Acetaminophen 500mg Tab PO 04/14/23 18:20 1,000 mg ONCE ONE Administration Ketorolac Tromethamine 15 mg 04/14/23 18:19 04/14/23 18:31 Ketorolac 30mg/Ml Vial IM 04/14/23 18:20 15 mg ONCE ONE Administration ORDERS Category Date Time Status Rapid PCR Covid and Flu A/B Stat Lab 04/14/23 16:56 Completed Rapid Strep Scrn Group A [Strep Scrn Group A (Rapid)] Lab 04/14/23 17:36 Completed Stat Strep Screen Confirmation Stat Micro 04/14/23 17:36 Received Medical Decision Narrative: In summary patient is a 32-year-old female who presents to the emergency department for evaluation of signs and symptoms of a respiratory infection with fever cough body aches. Patient is tachycardic normotensive on arrival with a temperature of 100.1. Physical exam is nonfocal with slightly elevated heart rate without any murmurs gallops rubs or thrills. Steer pharynx inflamed dry but without exudate. Breath sounds are clear and equal bilaterally.. Differential diagnosis includes viral versus bacterial upper respiratory tract infection. Initial workup will be conducted with flu COVID and strep swabs. Initial interventions include acetaminophen Toradol. Initial workup reviewed by me shows influenza positive strep negative. Upon repeat evaluation patient had defervesced since of her fever and feels slightly better after administration of acetaminophen and Toradol. Given this propria for discharge home with recommendations to continue alternating Tylenol Motrin every 4 hours for fever headache body aches as needed. I was consulted by the LAVON, and we discussed the complexity of the problems being addressed. I approved the treatment and management plan for this patient's care in the Emergency Department, thus performing a substantive portion of the medical decision making. María Salas MD Critical Care <CELIA Swift - Last Filed: 04/14/23 19:28> Critical Care Time Critical Care Time: No
[2023-04-14 17:32] LABS: Coronavirus 19, PCR Not Detected (NotDetected); Influenza A, PCR Not Detected (NotDetected)
--- NOTE | 2023-04-14 17:46 | PC.NURSE ---
pt ambulated to restroom no other needs at this time,call light at chair
[2023-04-14 17:51] LABS: Strep Scrn Group A (Rapid) Negative (Negative)
[2023-04-14 18:05] LABS: Influenza B, PCR Detected (NotDetected)
[2023-04-14 18:20] VITALS: TEMP 38.5
[2023-04-14] MEDS: ACETAMINOPHEN 500MG TAB 1000 MG PO (18:31)
[2023-04-14] MEDS: KETOROLAC 30MG/ML VIAL 15 MG IM (18:31)
[2023-04-14 19:01] VITALS: BP 107/80; PULSE 87; RESP 14; TEMP 37.4
== END 2023-04-14 19:03 | disposition home or self-care (01) ==
PROVIDERS: Physician Assistant; Emergency Provider Emergency Medicine; PCP Student in an Organized Health Care Education/Training Program
DX: J10.1 Influenza due to other identified influenza virus with other respiratory manifestations (principal); R50.9 Fever, unspecified; R05.9 Cough, unspecified; J45.909 Unspecified asthma, uncomplicated
CPT/HCPCS: 87430; 87636; 96372; 99283

== ENCOUNTER 2023-04-28 22:30 | Outpatient (CLI) | payer OTHER, SELFPAY ==
[2023-04-28 18:01] LABS: Adenovirus,PCR Not Detected (NotDetected); Coronavirus 19, PCR Not Detected (NotDetected); Coronavirus 229E Not Detected (NotDetected); Coronavirus NL63 Not Detected (NotDetected); Coronavirus OC43 Not Detected (NotDetected); Coronovirus HKU1,PCR Not Detected (NotDetected); Human Metapneumovirus Not Detected (NotDetected); Influenza A, PCR Not Detected (NotDetected); Influenza AH1, 2009 Not Detected (NotDetected); Influenza AH1, PCR Not Detected (NotDetected); Influenza AH3,PCR Not Detected (NotDetected); Influenza B, PCR Not Detected (NotDetected); Parainfluenza 1, PCR Not Detected (NotDetected); Parainfluenza 2, PCR Not Detected (NotDetected); Parainfluenza 3, PCR Not Detected (NotDetected); Parainfluenza 4, PCR Not Detected (NotDetected); Respiratory Syncytial Virus Not Detected (NotDetected); Rhinovirus/Enterovirus Not Detected (NotDetected)
== END 2023-04-28 23:59 ==
LOC: LAB.DROPOF 22:30
PROVIDERS: PCP Student in an Organized Health Care Education/Training Program; Visit Provider Student in an Organized Health Care Education/Training Program
DX: R50.9 Fever, unspecified (principal); R51.9 Headache, unspecified; J02.9 Acute pharyngitis, unspecified; R05.8 Other specified cough; R09.89 Other specified symptoms and signs involving the circulatory and respiratory systems
CPT/HCPCS: 87070; 87632; 87635

== ENCOUNTER 2023-06-29 17:14 | Emergency (ER) | payer OTHER, SELFPAY ==
[2023-06-29 17:25] VITALS: BP 103/65; PULSE 86; RESP 20; TEMP 36.6; O2SAT 98; BMI 18.7
--- NOTE | 2023-06-29 17:37 | EXP.UTC ---
Discharge Plan Disposition Patient Disposition: Home, Self-Care Condition: Good Prescriptions Prescriptions: New cefdinir 300 mg capsule 300 mg PO BID 10 Days Qty: 20 0RF phenazopyridine [Pyridium] 200 mg tablet 200 mg PO Q8H 2 Days Qty: 6 0RF No Action montelukast [Singulair] 10 mg tablet 10 mg PO DAILY amoxicillin-pot clavulanate 875-125 mg tablet 1 tab PO BID 10 Days Qty: 20 0RF methylprednisolone 4 mg tablets,dose pack See Rx Instructions PO PER PKG DIR Qty: 21 0RF Rx Instructions: PO PER PKG DIR fluticasone furoate-vilanterol 100-25 mcg/dose blister with device inhalation Patient Comments: INHALE 1 PUFF BY MOUTH DAILY fluticasone propionate [Allergy Relief (fluticasone)] 50 mcg/actuation spray,suspension 1 spray intranasal DAILY Qty: 16 2RF Rx Instructions: administer into each nostril hydroxyzine HCl 25 mg tablet 25 mg PO HS Qty: 30 2RF Qulipta 60 mg tablet 60 mg PO DAILY Qty: 30 3RF fluticasone propion-salmeterol [Advair Diskus] 250-50 mcg/dose blister with device See Rx Instructions .ROUTE .COMPLEX Qty: 60 2RF Dose Instruction: INHALE 1 PUFF BY MOUTH TWICE DAILY Rx Instructions: INHALE 1 PUFF BY MOUTH TWICE DAILY levocetirizine 5 mg tablet 5 mg PO DAILY Qty: 30 2RF Ubrelvy 100 mg tablet 100 mg PO ONCE PRN (Reason: migraine) Qty: 14 0RF albuterol sulfate [Ventolin HFA] 90 mcg/actuation HFA aerosol inhaler See Rx Instructions .ROUTE .COMPLEX Qty: 18 0RF Dose Instruction: INHALE 2 PUFFS BY MOUTH EVERY 4 TO 6 HOURS NEEDED FOR SHORTNESS OF BREATH FOR WHEEZING Rx Instructions: INHALE 2 PUFFS BY MOUTH EVERY 4 TO 6 HOURS NEEDED FOR SHORTNESS OF BREATH FOR WHEEZING Referrals Follow up/Referrals: Tari Powell PA [Primary Care Provider] - See instructions Activity Restrictions/Add. Instructions Additional Instructions/Restrictions: *Increase fluids. Water not Soda or Tea *Start antibiotic tomorrow you got your first dose in the [facility] and be sure to take as ordered for the FULL length of time although you should start to see improvement over the next 48 hours *Pyridium as needed Remember this medication will turn your urine . This is normal but it will stain what ever it gets on *You should not use Pyridium for more than 48 hours. If so , follow up with your primary physician to review urine culture and ensure that antibiotic is adequate for infection *Be SURE to follow up anytime for new or worsening symptoms with your family doctor. AND in 48 hours for urine culture results with your family doctor, if you do not have a doctor then you may call back to the [facility] for urine culture results and further treatment. We do recommend that you choose and establish care with a Primary Care Physician. ?AND follow up with them ?in 10-14 days to repeat UA to ensure infection is resolved and blood no longer present *Be sure to let your PCP know that we sent urine cultures from the [facility] so they can follow up to ensure that you area the on the correct antibiotic Call your doctor office and make appointment for 48 hours (2 days from today) ?to follow up and get the results of your urine culture and further treatment Clinical Impressions Clinical Impression: UTI (urinary tract infection) Qualifiers: Urinary tract infection type: site unspecified Hematuria presence: with hematuria Qualified Code(s): N39.0 - Urinary tract infection, site not specified Instructions Patient Instructions: Urinary Tract Infection, DI for Urinary Tract Infection (UTI), Phenazopyridine, Cefdinir Discharge ED Provider: Mallika Valero [facility] [place] General Stated complaint: burning and difficult urinating Mode of Arrival: Ambulatory Source of Information: Patient Limitations: No Limitations Time Seen by Provider: 06/29/23 17:37 Description of Symptoms (Recalled from Triage Doc. by RN): PATIENT C/O PAIN WITH URINATION AND POSSIBLE BLOOD IN URINE THAT STARTED TODAY HEENT Symptoms (Recalled from RN notes): No Resp Symptoms (Recalled from RN notes): No Skin Symptoms (Recalled from RN notes): No MS Symptoms (Recalled from RN notes): No Functional Status (Recalled from RN notes): WNL History of Present Illness Provider Complaint: Patient states she has been having burning with urination, feeling of urgency and frequency but would only urinate small amounts at a time and noticed she had some blood in it earlier today so she came in to get it checked Denies fever, denies chills denies abdominal pain or back pain Denies hx of kidney stones States feels like it has before when she had a bad UTI States that she has not drink that much today worried she would urinate and it would hurt Related Data Home Medications Medication Instructions Recorded Confirmed fluticasone furoate 100 ea inhalation 05/19/22 04/28/23 mcg-vilanterol 25 mcg/dose inhalation powder montelukast 10 mg tablet 10 mg PO DAILY 01/21/23 04/28/23 (Singulair) Previous Rx's Medication Instructions Recorded fluticasone propionate 50 1 spray intranasal DAILY #16 grams 12/08/22 mcg/actuation nasal spray,suspension (Allergy Relief (fluticasone)) hydroxyzine HCl 25 mg tablet 25 mg PO HS #30 tabs 02/08/23 amoxicillin 875 mg-potassium 1 tab PO BID 10 days #20 tabs 04/28/23 clavulanate 125 mg tablet methylprednisolone 4 mg tablets in See Rx Instructions PO PER PKG DIR 04/28/23 a dose pack #21 tabs Advair Diskus 250 mcg-50 mcg/dose See Rx Instructions .Route 05/02/23 powder for inhalation (fluticasone .COMPLEX #60 ea propion-salmeterol) atogepant 60 mg tablet (Qulipta) 60 mg PO DAILY #30 tabs 05/02/23 levocetirizine 5 mg tablet 5 mg PO DAILY #30 tabs 06/06/23 ubrogepant 100 mg tablet (Ubrelvy) 100 mg PO ONCE PRN migraine #14 06/06/23 tabs Ventolin HFA 90 mcg/actuation See Rx Instructions .Route 06/07/23 aerosol inhaler (albuterol sulfate) .COMPLEX #18 grams cefdinir 300 mg capsule 300 mg PO BID 10 days #20 caps 06/29/23 phenazopyridine 200 mg tablet 200 mg PO Q8H pain 2 days #6 tabs 06/29/23 (Pyridium) Allergies Allergy/AdvReac Type Severity Reaction Status Date / Time watermelon [WATERMELON] Allergy Unknown Verified 04/28/23 13:57 Worker's Comp Is this a Worker's Comp case?: No [facility] Disclaimer: The information contained in this section may have been updated after the patient was seen, as this information can be updated by other users. Medical History (Updated 06/29/23 @ 17:50 by Mallika Valero APRN) Depression Migraines Anxiety Asthma Surgical History History of tubal ligation Family History Other No significant family history Social History Smoking Status: Never smoker alcohol intake: never substance use type: denies use current occupational status: employed Travel in the last 8 weeks: None household members: other housing: other ROS Obtained: Yes All systems reviewed & no additional complaints except as documented and Yes Systems reviewed as appropriate & no additional complaints except as documented Constitutional Constitutional: Reports system reviewed and no additional complaints, except as documented, Reports as per HPI, Denies body ache, Denies chills, Denies fatigue and Denies fever(s) ENT Ears, Nose, Mouth, and Throat: Reports system reviewed and no additional complaints, except as documented and Reports as per HPI Cardiovascular Cardiovascular: Reports system reviewed and no additional complaints, except as documented and Reports as per HPI Respiratory Respiratory: Reports system reviewed and no additional complaints, except as documented and Reports as per HPI Gastrointestinal Gastrointestingal: Reports system reviewed and no additional complaints, except as documented and as per HPI; Denies abdominal pain, nausea or vomiting Genitourinary Female Genitourinary: Reports system reviewed and no additional complaints, except as documented, Reports as per HPI, Reports dysuria, Denies flank pain, Reports urinary frequency and Reports urinary urgency Musculoskeletal Musculoskeletal: Reports system reviewed and no additional complaints, except as documented and Reports as per HPI Endocrine Endocrine: Denies fatigue Physical Exam General General appearance: alert and in no apparent distress ENT ENT exam: Present mucous membranes moist Respiratory Respiratory exam: Present normal lung sounds bilaterally; Absent respiratory distress or wheezes Cardiovascular Cardiovascular exam: Present regular rate, normal rhythm and normal heart sounds Abdominal Exam Abdominal exam: Present soft and normal bowel sounds; Absent distention or tenderness Neurological Exam Neurological exam: Present alert, oriented X3 and normal gait Medical Decision Making Quentin Inquiry Pt receiving controlled substance: No Quentin was queried for this patient: No Vital Signs: 06/29/23 17:25 Temperature 97.8 F Temperature Source Oral Pulse Rate [Left Brachial] 86 Respiratory Rate 20 Blood Pressure [Left Arm] 103/65 L Blood Pressure Mean [Left Arm] 77 Blood Pressure Source [Left Arm] Automatic Cuff Blood Pressure Position [Left Arm] Sitting 02 Sat by Pulse Oximetry 98 Oxygen Delivery Method Room Air Lab Data Lab results reviewed: Yes I reviewed the patient's lab results. Medical Decision Narrative: discussed injection or Rocephin and pateint declined Medication discussed with pharmacy
[2023-06-29 17:42] LABS: Apearance,Urine Cloudy (Clear); Color,Urine Red (Yellow); Glucose,Urine (UA) Negative (Negative); Ketones,Urine Negative (Negative); Protein,Urine 3+ (Negative); Specific Gravity, Urine 1.015 (1.005-1.030)
[2023-06-29 17:43] LABS: Bilirubin,Urine 1+ (Negative); Blood, Urine 3+ (Negative); UTC Leukocyte Esterase,Urine 1+ (Negative); UTC Nitrate,Urine Negative (Negative); Urobilinogen,Urine 1 EU/dl (0.2)
[2023-06-29] MEDS: SODIUM CHLORIDE 0.9% 500ML BAG 500 ML IV (17:55)
[2023-06-29] MEDS: SODIUM CHLORIDE 0.9% 10ML FLUSH SYRINGE 10 ML IV (17:55)
[2023-06-29] MEDS: CEFDINIR 300MG CAPSULE 300 MG PO (18:18)
[2023-06-29] MEDS: PHENAZOPYRIDINE 200MG TABLET 200 MG PO (18:18)
[2023-06-29 18:19] VITALS: BP 103/65; PULSE 86; RESP 20; TEMP 36.6; O2SAT 98
== END 2023-06-29 18:24 | disposition home or self-care (01) ==
PROVIDERS: Emergency Provider Nurse Practitioner; PCP Student in an Organized Health Care Education/Training Program
DX: N39.0 Urinary tract infection, site not specified (principal); R30.0 Dysuria
CPT/HCPCS: 81003; 99212; 99214; G0463

== ENCOUNTER 2023-07-12 18:00 | Outpatient (CLI) | payer OTHER, SELFPAY ==
[2023-07-12 17:38] LABS: Adenovirus,PCR Not Detected (NotDetected); Bordetella Pertussis Not Detected (NotDetected); Chlamydophila Pneumoniae, PCR Not Detected (NotDetected); Coronavirus 19, PCR Not Detected (NotDetected); Coronavirus 229E Not Detected (NotDetected); Coronavirus NL63 Not Detected (NotDetected); Coronavirus OC43 Not Detected (NotDetected); Coronovirus HKU1,PCR Not Detected (NotDetected); Human Metapneumovirus Not Detected (NotDetected); Influenza A, PCR Not Detected (NotDetected); Influenza AH1, 2009 Not Detected (NotDetected); Influenza AH1, PCR Not Detected (NotDetected); Influenza AH3,PCR Not Detected (NotDetected); Influenza B, PCR Not Detected (NotDetected); Mycoplasma Pneumoniae, PCR Not Detected (NotDetected); Parainfluenza 1, PCR Not Detected (NotDetected); Parainfluenza 2, PCR Not Detected (NotDetected); Parainfluenza 3, PCR Not Detected (NotDetected); Parainfluenza 4, PCR Not Detected (NotDetected); Respiratory Syncytial Virus Not Detected (NotDetected)
[2023-07-13 03:18] LABS: Rhinovirus/Enterovirus Detected (NotDetected)
== END 2023-07-12 23:59 | disposition home or self-care (01) ==
LOC: LAB.DROPOF 07-13 08:43
PROVIDERS: PCP Student in an Organized Health Care Education/Training Program; Visit Provider Student in an Organized Health Care Education/Training Program
DX: J02.9 Acute pharyngitis, unspecified (principal); B34.1 Enterovirus infection, unspecified; R05.9 Cough, unspecified
CPT/HCPCS: 87070; 87581; 87632; 87635; 87798

== ENCOUNTER 2023-07-16 15:53 | Emergency (ER) | payer OTHER, SELFPAY ==
[2023-07-16 16:45] VITALS: BP 106/66; PULSE 98; RESP 20; TEMP 36.8; O2SAT 98; BMI 17.9
--- NOTE | 2023-07-16 17:46 | EXP.UTC ---
Discharge Plan Disposition Patient Disposition: Home, Self-Care Condition: Good Prescriptions Prescriptions: New promethazine-DM 6.25-15 mg/5 mL syrup 5 ml PO Q6H PRN (Reason: cough) Qty: 118 0RF Rx Instructions: Stop Bromfed. No Action montelukast [Singulair] 10 mg tablet 10 mg PO DAILY [id number] [Bromfed DM] 2-30-10 mg/5 mL syrup 5 ml PO Q4-6H PRN (Reason: sinus symptoms) Qty: 118 0RF fluticasone furoate-vilanterol 100-25 mcg/dose blister with device See Rx Instructions .ROUTE .COMPLEX Patient Comments: INHALE 1 PUFF BY MOUTH DAILY Rx Instructions: see rx instructions hydroxyzine HCl 25 mg tablet 25 mg PO HS Qty: 30 2RF terconazole 0.8 % cream 1 appful vaginal HS 7 Days Qty: 20 0RF Rx Instructions: apply topically to infected area. Qulipta 60 mg tablet 60 mg PO DAILY Qty: 30 3RF fluticasone propion-salmeterol [Advair Diskus] 250-50 mcg/dose blister with device See Rx Instructions .ROUTE .COMPLEX Qty: 60 2RF Dose Instruction: INHALE 1 PUFF BY MOUTH TWICE DAILY Rx Instructions: INHALE 1 PUFF BY MOUTH TWICE DAILY levocetirizine 5 mg tablet 5 mg PO DAILY Qty: 30 2RF albuterol sulfate [Ventolin HFA] 90 mcg/actuation HFA aerosol inhaler See Rx Instructions .ROUTE .COMPLEX Qty: 18 0RF Dose Instruction: INHALE 2 PUFFS BY MOUTH EVERY 4 TO 6 HOURS NEEDED FOR SHORTNESS OF BREATH FOR WHEEZING Rx Instructions: INHALE 2 PUFFS BY MOUTH EVERY 4 TO 6 HOURS NEEDED FOR SHORTNESS OF BREATH FOR WHEEZING Ubrelvy 100 mg tablet 100 mg PO ONCE PRN (Reason: migraine) Qty: 14 0RF Referrals Follow up/Referrals: Tari Powell PA [Primary Care Provider] - See instructions Activity Restrictions/Add. Instructions Additional Instructions/Restrictions: Stop Bromfed. Do not take Bromfed with Promethazine DM. Clinical Impressions Clinical Impression: Acute upper respiratory infection Instructions Patient Instructions: DI for Viral Upper Respiratory Infection -- Adult Discharge ED Provider: Corry Nuñez [facility] HPI General Stated complaint: Cough Mode of Arrival: Ambulatory Source of Information: Patient Limitations: No Limitations Time Seen by Provider: 07/16/23 17:44 Description of Symptoms (Recalled from Triage Doc. by RN): Pt's symptoms are coughing fit, and sides hurt from coughing. HEENT Symptoms (Recalled from RN notes): Yes Resp Symptoms (Recalled from RN notes): No Skin Symptoms (Recalled from RN notes): No MS Symptoms (Recalled from RN notes): No Functional Status (Recalled from RN notes): n/a History of Present Illness Provider Complaint: Pt reports that she went to her doctor and was diagnosed with Rhinovirus 4 days ago. She states that she has tested negative for Covid. She states that she continues to cough and this is starting to hurt her ribs. She has been taking Bromfed, but reports that this is not helping much. Related Data Home Medications Medication Instructions Recorded Confirmed fluticasone furoate 100 See Rx Instructions .Route .COMPLEX 05/19/22 07/16/23 mcg-vilanterol 25 mcg/dose inhalation powder montelukast 10 mg tablet 10 mg PO DAILY 01/21/23 07/16/23 (Singulair) Previous Rx's Medication Instructions Recorded hydroxyzine HCl 25 mg tablet 25 mg PO HS #30 tabs 02/08/23 Advair Diskus 250 mcg-50 mcg/dose See Rx Instructions .Route 05/02/23 powder for inhalation (fluticasone .COMPLEX #60 ea propion-salmeterol) atogepant 60 mg tablet (Qulipta) 60 mg PO DAILY #30 tabs 05/02/23 levocetirizine 5 mg tablet 5 mg PO DAILY #30 tabs 06/06/23 terconazole 0.8 % vaginal cream 1 appful vaginal HS 7 days #20 07/06/23 grams Ventolin HFA 90 mcg/actuation See Rx Instructions .Route 07/08/23 aerosol inhaler (albuterol sulfate) .COMPLEX #18 grams ubrogepant 100 mg tablet (Ubrelvy) 100 mg PO ONCE PRN migraine #14 07/11/23 tabs [id number]-[id number] 5 ml PO Q4-6H PRN sinus symptoms 07/12/23 2 mg-30 mg-10 mg/5 mL oral syrup #118 mL (Bromfed DM) promethazine-DM 6.25 mg-15 mg/5 mL 5 ml PO Q6H PRN cough #118 mL 07/16/23 oral syrup Allergies Allergy/AdvReac Type Severity Reaction Status Date / Time watermelon [WATERMELON] Allergy Unknown Verified 07/16/23 17:14 Worker's Comp Is this a Worker's Comp case?: No [facility] Disclaimer: The information contained in this section may have been updated after the patient was seen, as this information can be updated by other users. Medical History Depression Migraines Anxiety Asthma Surgical History History of tubal ligation Family History Other No significant family history Social History Smoking Status: Never smoker alcohol intake: never substance use type: denies use current occupational status: employed Travel in the last 8 weeks: None household members: other housing: other ROS Obtained: Yes All systems reviewed & no additional complaints except as documented Constitutional Constitutional: Reports system reviewed and no additional complaints, except as documented and Reports malaise Eyes Eyes: Reports system reviewed and no additional complaints, except as documented ENT Ears, Nose, Mouth, and Throat: Reports system reviewed and no additional complaints, except as documented, Reports nasal congestion and Reports nasal discharge Cardiovascular Cardiovascular: Reports system reviewed and no additional complaints, except as documented Respiratory Respiratory: Reports system reviewed and no additional complaints, except as documented, Reports non-productive cough and Reports pain with cough Gastrointestinal Gastrointestingal: Reports system reviewed and no additional complaints, except as documented Genitourinary Female Genitourinary: Reports system reviewed and no additional complaints, except as documented Musculoskeletal Musculoskeletal: Reports system reviewed and no additional complaints, except as documented Integumentary/Breasts Skin/Breast: Reports system reviewed and no additional complaints, except as documented Neurologic Neurologic: Reports system reviewed and no additional complaints, except as documented Endocrine Endocrine: Reports system reviewed and no additional complaints, except as documented Hematologic/Lymphatic Henatologic/Lymphatic: Reports system reviewed and no additional complaints, except as documented Allergic/Immunologic Allergic/Immunologic: Reports system reviewed and no additional complaints, except as documented Physical Exam General General appearance: alert Comment: ill appearing Head Head exam: atraumatic and normocephalic Eye Eye exam: Present normal appearance Expanded ENT Exam External ear exam: Present normal external inspection Nasal speculum exam: Bilateral: normal Mouth exam: Present normal external inspection Teeth exam: Present normal inspection Throat exam: Present normal inspection Neck Neck exam: Present normal inspection Chest Chest inspection: Present normal inspection and symmetric chest wall rise Respiratory Respiratory exam: Present normal lung sounds bilaterally Cardiovascular Cardiovascular exam: Present regular rate and normal rhythm Abdominal Exam Abdominal exam: Present soft and normal bowel sounds Extremities Exam Extremities exam: Present normal inspection Back Exam Back exam: Present normal inspection Neurological Exam Neurological exam: Present alert and oriented X3 Psychiatric Psychiatric exam: Present normal affect and normal mood Skin Skin exam: Present warm, dry and intact Lymphatic Lymphatic Findings: no adenopathy Medical Decision Making Quentin Inquiry Pt receiving controlled substance: No Quentin was queried for this patient: No Vital Signs: 07/16/23 16:45 Temperature 98.2 F Temperature Source Oral Pulse Rate [Right Radial] 98 H Respiratory Rate 20 Blood Pressure [Right Arm] 106/66 L Blood Pressure Mean [Right Arm] 79 Blood Pressure Source [Right Arm] Automatic Cuff Blood Pressure Position [Right Arm] Sitting 02 Sat by Pulse Oximetry 98 Oxygen Delivery Method Room Air Orders (Tests/Meds): ORDERS Category Date Time Status Full Resp Panel w/COVID ([facility]) Routine Lab 07/16/23 16:58 Received
[2023-07-16 18:06] VITALS: BP 106/66; PULSE 98; RESP 20; TEMP 36.8; O2SAT 98
== END 2023-07-16 18:06 | disposition home or self-care (01) ==
PROVIDERS: Emergency Provider Nurse Practitioner Family; PCP Student in an Organized Health Care Education/Training Program
DX: R05.9 Cough, unspecified (principal); R07.1 Chest pain on breathing; J06.9 Acute upper respiratory infection, unspecified
CPT/HCPCS: 99212; 99214; G0463

== ENCOUNTER 2024-01-03 18:14 | Emergency (ER) | payer OTHER, SELFPAY ==
[2024-01-03 19:34] VITALS: BP 101/50; PULSE 76; RESP 18; TEMP 36.8; O2SAT 100; BMI 17.0
--- NOTE | 2024-01-03 19:36 | EXP.UTC ---
Discharge Plan Disposition Patient Disposition: Home, Self-Care Condition: Good Prescriptions Prescriptions: New prednisone 10 mg tablet 10 mg PO BID 3 Days Qty: 6 0RF amoxicillin 400 mg/5 mL suspension for reconstitution 500 mg PO TID 10 Days Qty: 187.5 0RF ondansetron 4 mg Tablet,Disintegrating 4 mg PO Q8H PRN (Reason: Nausea) Qty: 12 0RF No Action fluticasone propion-salmeterol [Advair Diskus] 250-50 mcg/dose blister with device 250 inh INHALATION DIRECTED Qulipta 60 mg tablet 60 mg PO DIRECTED Referrals Follow up/Referrals: Tari Powell PA [Primary Care Provider] - See instructions Activity Restrictions/Add. Instructions Additional Instructions/Restrictions: Drink plenty of fluids. Take tylenol or ibuprofen for pain or fever. Take the medications as directed. Follow up with your regular doctor. GO TO THE ER FOR ANY WORSENING SYMPTOMS Clinical Impressions Clinical Impression: Strep throat Stand Alone Forms Stand Alone Forms: Work/School Release Instructions Patient Instructions: Strep Throat, DI for Strep Throat Print Language Print Language: Citizen Of [place] Discharge ED Provider: Navin Fleming [facility] General Stated complaint: fever vomiting Mode of Arrival: Ambulatory Source of Information: Patient Time Seen by Provider: 01/03/24 19:36 Description of Symptoms (Recalled from Triage Doc. by RN): FEVER (100S), N/V/D, CHILLS, THROAT HURTS HEENT Symptoms (Recalled from RN notes): Yes Resp Symptoms (Recalled from RN notes): No Skin Symptoms (Recalled from RN notes): No MS Symptoms (Recalled from RN notes): No Functional Status (Recalled from RN notes): WNL Related Data Home Medications ?Medication ?Instructions ?Recorded ?Confirmed atogepant 60 mg tablet (Qulipta) 60 mg PO DIRECTED 01/03/24 01/03/24 fluticasone 250 mcg-salmeterol 50 250 inh inhalation DIRECTED 01/03/24 01/03/24 mcg/dose blistr powdr for inhalation (Advair Diskus) Previous Rx's ?Medication ?Instructions ?Recorded amoxicillin 400 mg/5 mL oral 500 mg (6.25 mL) PO TID 10 days 01/03/24 suspension #187.5 mL ondansetron 4 mg disintegrating 4 mg PO Q8H PRN Nausea #12 tabs 01/03/24 tablet prednisone 10 mg tablet 10 mg PO BID 3 days #6 tabs 01/03/24 Allergies Allergy/AdvReac Type Severity Reaction Status Date / Time watermelon [WATERMELON] Allergy Unknown Verified 10/04/23 14:00 Worker's Comp Is this a Worker's Comp case?: No [facility] Disclaimer: The information contained in this section may have been updated after the patient was seen, as this information can be updated by other users. Medical History Depression Migraines Anxiety Asthma Surgical History (Reviewed 10/04/23 @ 14: by Dhaval Lindsay MA) History of tubal ligation Family History Other No significant family history Social History Smoking Status: Never smoker alcohol intake: never substance use type: denies use current occupational status: employed Travel in the last 8 weeks: None household members: other housing: other ROS Obtained: Yes All systems reviewed & no additional complaints except as documented Constitutional Constitutional: Reports chills and Reports fever(s) Eyes Eyes: Denies eye discharge ENT Ears, Nose, Mouth, and Throat: Reports as per HPI Cardiovascular Cardiovascular: Denies chest pain Respiratory Respiratory: Denies chest congestion and Reports cough Gastrointestinal Gastrointestingal: Reports nausea; Denies abdominal pain, constipation, cramping, diarrhea or vomiting Musculoskeletal Musculoskeletal: Denies arthralgias Integumentary/Breasts Skin/Breast: Denies rash Neurologic Neurologic: Denies paresthesias Physical Exam General General appearance: alert and in no apparent distress Head Head exam: atraumatic, normocephalic and normal inspection Eye Eye exam: Present normal appearance, PERRL and EOMI ENT ENT exam: Present mucous membranes moist and normal external ear exam Expanded ENT Exam TM/Canal exam: Bilateral TM: erythema and bulging Nose exam: Absent sinus tenderness Mouth exam: Present normal external inspection; Absent drooling Teeth exam: Present normal inspection Throat exam: Present tonsillar erythema, tonsillomegaly and tonsillar exudate Neck Neck exam: Present normal inspection, full ROM and trachea midline; Absent tenderness, meningismus or lymphadenopathy Chest Chest inspection: Present normal inspection and symmetric chest wall rise; Absent tenderness Respiratory Respiratory exam: Present normal lung sounds bilaterally; Absent respiratory distress, wheezes, stridor or accessory muscle use Cardiovascular Cardiovascular exam: Present regular rate and normal rhythm; Absent systolic murmur or diastolic murmur Abdominal Exam Abdominal exam: Present soft and normal bowel sounds; Absent distention, tenderness, guarding, rebound or rigidity Extremities Exam Extremities exam: Present normal inspection and normal capillary refill; Absent calf tenderness Back Exam Back exam: Present normal inspection and full ROM; Absent tenderness, CVA tenderness (R) or CVA tenderness (L) Neurological Exam Neurological exam: Present alert, oriented X3 and CN II-XII intact Psychiatric Psychiatric exam: Present normal affect and normal mood Skin Skin exam: Present warm, dry, intact and normal color Medical Decision Making Medical Records Medical records reviewed: No I reviewed the patient's medical records. Screening: Per USPSTF and CDC recommendations, given the prevalence of disease in our region, it is our hospital?s policy to screen for HIV and viral Hepatitis for all patients aged 18 and over and those with ongoing risk factors. Quentin Inquiry Pt receiving controlled substance: No Vital Signs: 01/03/24 19:34 Temperature 98.3 F Temperature Source Oral Pulse Rate [Left Radial] 76 Respiratory Rate 18 Blood Pressure [Left Arm] 101/50 L Blood Pressure Mean [Left Arm] 67 02 Sat by Pulse Oximetry 100 Lab Data Lab results reviewed: Yes I reviewed the patient's lab results.
[2024-01-03 19:45] LABS: UTC Strep Screen (Rapid) Positive (Negative)
[2024-01-03] MEDS: AMOXICILLIN 250MG/5ML 100ML ORAL SUSP 500 MG PO (19:58)
[2024-01-03 20:10] VITALS: BP 101/50; PULSE 76; RESP 20; TEMP 36.8
== END 2024-01-03 20:12 | disposition home or self-care (01) ==
PROVIDERS: Emergency Provider Nurse Practitioner Family; PCP Student in an Organized Health Care Education/Training Program
DX: J02.0 Streptococcal pharyngitis (principal)
CPT/HCPCS: 87880; 99213; G0381

== ENCOUNTER 2024-01-10 18:08 | Emergency (ER) | payer OTHER, SELFPAY ==
--- NOTE | 2024-01-10 18:11 | XR_ITS ---
PROCEDURE INFORMATION: Exam: XR Left Shoulder Exam date and time: 01/10/2024 6:17 PM Age: 33 years old Clinical indication: Injury or trauma; Fall; Blunt trauma (contusions or hematomas); Patient HX: Fell on to left shoulder. Pain. TECHNIQUE: Imaging protocol: Radiologic exam of the left shoulder. Views: 2 or more views. COMPARISON: CR XR SOFT TISSUE NECK 10/10/2022 6:56 PM FINDINGS: Bones/joints: Normal. Soft tissues: Normal. IMPRESSION: No acute findings.
[2024-01-10 19:20] VITALS: BP 107/71; PULSE 76; RESP 19; TEMP 36.9; O2SAT 97; BMI 17.2
--- NOTE | 2024-01-10 19:34 | ED_ITS ---
Discharge Plan Disposition Patient Disposition: Home, Self-Care Condition: Good Prescriptions Prescriptions: No Action fluconazole 150 mg tablet 150 mg PO Q3D 0 Days Qty: 2 0RF Rx Instructions: may repeat second dose 72 hrs after first dose if symptoms persist fluticasone propion-salmeterol [Advair Diskus] 250-50 mcg/dose blister with device 250 inh INHALATION DIRECTED Qulipta 60 mg tablet 60 mg PO DIRECTED prednisone 10 mg tablet 10 mg PO BID 3 Days Qty: 6 0RF amoxicillin 400 mg/5 mL suspension for reconstitution 500 mg PO TID 10 Days Qty: 187.5 0RF ondansetron 4 mg Tablet,Disintegrating 4 mg PO Q8H PRN (Reason: Nausea) Qty: 12 0RF Referrals Follow up/Referrals: Tari Powell PA [Primary Care Provider] - See instructions Activity Restrictions/Add. Instructions Additional Instructions/Restrictions: *RICE, Rest the extremity, Ice 15-20 minutes 3-4 times daily, Compress- wear the vitaly wrap as discussed as much as possible to help reduce swelling and pain, Elevate the extremity when at rest *Sling is for support make sure to move shoulder to keep from having frozen shoulder, use it except in the shower. Be sure that is not to tight but not to loose either *Elevate when resting? *Ibuprofen 200-400mg every 6-8 hours as needed for pain an inflammation. If need something more can take Tylenol in between doses of Ibuprofen to help Immediately follow up with your family doctor for new or worsening of symptoms, or no noticeable improvement over the next 3-5 days Over the counter muscle rubs may help with soreness and pain Clinical Impressions Clinical Impression: Left shoulder pain Instructions Patient Instructions: DI for Shoulder Pain, Ibuprofen, Acetaminophen Print Language Print Language: Filipino Discharge ED Provider: Mallika Valero [facility] General Stated complaint: AO 01/08/24 1700 injury left shoulder Time Seen by Provider: 01/10/24 19:34 History of Present Illness Provider Complaint: Patient states that she tripped and fell a couple days ago and landed on her left shoulder area States that she has been having pain in her shoulder that is worse with movement Denies radiation of pain Denies LOC denies hitting her head or any other injury Related Data Home Medications ?Medication ?Instructions ?Recorded ?Confirmed amoxicillin 400 mg/5 mL oral 500 mg PO TID 01/10/24 01/10/24 suspension fluticasone 250 mcg-salmeterol 50 1 ea inhalation DAILY 01/10/24 01/10/24 mcg/dose blistr powdr for inhalation (Advair Diskus) Allergies Allergy/AdvReac Type Severity Reaction Status Date / Time watermelon (WATERMELON) Allergy Unknown Verified 10/04/23 14:00 [facility] Disclaimer: The information contained in this section may have been updated after the patient was seen, as this information can be updated by other users. Medical History Depression Migraines Anxiety Asthma Surgical History (Reviewed 10/04/23 @ 14: by Dhaval Lindsay MA) History of tubal ligation Family History Other No significant family history Social History Smoking Status: Never smoker alcohol intake: never substance use type: denies use current occupational status: employed Travel in the last 8 weeks: None household members: other housing: other ROS Obtained: Yes All systems reviewed & no additional complaints except as documented and Yes Systems reviewed as appropriate & no additional complaints except as documented Constitutional Constitutional: Reports system reviewed and no additional complaints, except as documented, Reports as per HPI, Denies body ache, Denies chills and Denies fever(s) Eyes Eyes: Reports system reviewed and no additional complaints, except as documented and Reports as per HPI ENT Ears, Nose, Mouth, and Throat: Reports system reviewed and no additional complaints, except as documented and Reports as per HPI Cardiovascular Cardiovascular: Reports system reviewed and no additional complaints, except as documented and Reports as per HPI Respiratory Respiratory: Reports system reviewed and no additional complaints, except as documented and Reports as per HPI Gastrointestinal Gastrointestingal: Reports system reviewed and no additional complaints, except as documented and as per HPI Musculoskeletal Musculoskeletal: Reports system reviewed and no additional complaints, except as documented, Reports as per HPI and Reports other (Pain in left shoulder after falling 2 days ago) Physical Exam General General appearance: alert and in no apparent distress ENT ENT exam: Present normal exam, normal oropharynx, mucous membranes moist and TM's normal bilaterally Respiratory Respiratory exam: Present normal lung sounds bilaterally; Absent respiratory distress or wheezes Cardiovascular Cardiovascular exam: Present regular rate, normal rhythm and normal heart sounds Expanded Upper Extremity Exam Left: Shoulder exam: Present tenderness; Absent swelling, abrasion, laceration, ecchymosis, deformity, dislocation or erythema Arm exam: Present normal inspection Elbow exam: Present normal inspection Forearm/Wrist exam: Present normal inspection Hand exam: Present normal inspection Vascular exam: Normal capillary refill Back Exam Back 1 view image: 2 1. reports pain with movement after falling 2 days ago, no bruising no open wounds Neurological Exam Neurological exam: Present alert, oriented X3 and normal gait Medical Decision Making Medical Records Screening: Per USPSTF and CDC recommendations, given the prevalence of disease in our region, it is our hospital?s policy to screen for HIV and viral Hepatitis for all patients aged 18 and over and those with ongoing risk factors. Quentin Inquiry Pt receiving controlled substance: No Quentin was queried for this patient: No Orders (Tests/Meds): ORDERS Category Date Time Status XR shoulder LT min 2V Stat Exams 01/10/24 18:11 Completed Radiology Data #1: Image(s): Shoulder Image Reviewed: Yes I have reviewed radiologist's interpretation FINDINGS: Bones/joints: Normal. Soft tissues: Normal. IMPRESSION: No acute findings.
[2024-01-10 19:43] VITALS: BP 107/71; PULSE 76; RESP 19; TEMP 36.9; O2SAT 97
== END 2024-01-10 19:55 | disposition home or self-care (01) ==
PROVIDERS: Emergency Provider Nurse Practitioner; PCP Student in an Organized Health Care Education/Training Program
DX: M25.512 Pain in left shoulder (principal)
CPT/HCPCS: 73030; 99212; G0381

== ENCOUNTER 2024-01-14 12:12 | Emergency (ER) | payer OTHER, SELFPAY ==
[2024-01-14 12:35] VITALS: BP 111/47; PULSE 92; RESP 21; TEMP 36.9; O2SAT 100; BMI 16.7
[2024-01-14] MEDS: KETOROLAC 30MG/ML VIAL 15 MG IV (13:21)
[2024-01-14] MEDS: METHYLPREDNISOLONE SOD SUCC 125MG VIAL 60 MG IV (13:21)
[2024-01-14] MEDS: SODIUM CHLORIDE 0.9% 500ML BAG 500 ML IV (13:22)
[2024-01-14] MEDS: ONDANSETRON 4MG/2ML VIAL 4 MG IV (13:22)
--- NOTE | 2024-01-14 13:23 | ED_ITS ---
Discharge Plan Prescriptions Prescriptions: No Action fluticasone propion-salmeterol [Advair Diskus] 250-50 mcg/dose blister with device 1 ea INHALATION DAILY amoxicillin 400 mg/5 mL suspension for reconstitution 500 mg PO TID Patient Comments: TAKE 6.25 ML BY MOUTH THREE TIMES DAILY FOR 10 DAYS , DISCARD THE REMAINING AMOUNT Referrals Follow up/Referrals: Tari Powell PA [Primary Care Provider] - See instructions Activity Restrictions/Add. Instructions Additional Instructions/Restrictions: Follow-up with PCP If symptoms worsen or do not improve return Clinical Impressions Clinical Impression: Migraine, Nausea & vomiting Instructions Patient Instructions: Migraine -- Adult, DI for Migraine, Nausea and Vomiting- Adult Print Language Print Language: Vietnamese Discharge ED Provider: Birgit ([facility] [facility] [place] Stated complaint: h/a, vomiting Mode of Arrival: Ambulatory Source of Information: Patient Limitations: No Limitations Time Seen by Provider: 01/14/24 13:07 Description of Symptoms (Recalled from Triage Doc. by RN): PATIENT C/O MIGRAINE WITH VOMITING AND BLURRING VISION. SHE STATES IT IS THE WORSE MIGRAINE SHE HAS EVER HAD. SHE STATES SHE TOOK HER UBRELVY THIS MORNING BUT IT DID NOT HELP HEENT Symptoms (Recalled from RN notes): Yes Resp Symptoms (Recalled from RN notes): No Skin Symptoms (Recalled from RN notes): No MS Symptoms (Recalled from RN notes): No Functional Status (Recalled from RN notes): WNL History of Present Illness Provider Complaint: 33-year-old female presents for a migraine and nausea. Patient states this is the worst headache she has had in a couple of years but is like her normal migraine. Patient states she takes a daily migraine medicine but she has not taken it for about 3 days and believes it just caused her migraines to flare up. Patient refuses to go to the ER for evaluation Related Data Home Medications ?Medication ?Instructions ?Recorded ?Confirmed amoxicillin 400 mg/5 mL oral 500 mg PO TID 01/10/24 01/14/24 suspension fluticasone 250 mcg-salmeterol 50 1 ea inhalation DAILY 01/10/24 01/14/24 mcg/dose blistr powdr for inhalation (Advair Diskus) Allergies Allergy/AdvReac Type Severity Reaction Status Date / Time watermelon (WATERMELON) Allergy Unknown Verified 10/04/23 14:00 Worker's Comp Is this a Worker's Comp case?: No [facility] Disclaimer: The information contained in this section may have been updated after the patient was seen, as this information can be updated by other users. Medical History , [employer]) Depression Migraines Anxiety Asthma Surgical History , [employer]) History of tubal ligation Family History , [employer]) No significant family history Social History , [employer]) Smoking Status: Never smoker alcohol intake: never substance use type: denies use current occupational status: employed household members: other housing: other ROS Obtained: Yes Systems reviewed as appropriate & no additional complaints except as documented Physical Exam General General appearance: alert and in no apparent distress ENT ENT exam: Present normal exam and mucous membranes moist Respiratory Respiratory exam: Present normal lung sounds bilaterally Cardiovascular Cardiovascular exam: Present regular rate and normal rhythm Abdominal Exam Abdominal exam: Present soft and normal bowel sounds; Absent distention or tenderness Neurological Exam Neurological exam: Present alert, oriented X3, CN II-XII intact and normal gait Skin Skin exam: Present warm and intact Medical Decision Making Medical Records Medical records reviewed: Yes I reviewed the patient's medical records. Screening: Per USPSTF and CDC recommendations, given the prevalence of disease in our region, it is our hospital?s policy to screen for HIV and viral Hepatitis for all patients aged 18 and over and those with ongoing risk factors. Quentin Inquiry Pt receiving controlled substance: No Quentin was queried for this patient: No Vital Signs: 01/14/24 12:35 Temperature 98.4 F Temperature Source Oral Pulse Rate [Left Brachial] 92 H Respiratory Rate 21 Blood Pressure [Left Arm] 111/47 L Blood Pressure Mean [Left Arm] 68 Blood Pressure Source [Left Arm] Automatic Cuff Blood Pressure Position [Left Arm] Sitting 02 Sat by Pulse Oximetry 100 Oxygen Delivery Method Room Air Orders (Tests/Meds): ED MEDICATIONS Discontinued Medications Generic Name Dose Route Start Last Admin Trade Name Freq PRN Reason Stop Dose Admin Ketorolac Tromethamine 15 mg 01/14/24 13:17 01/14/24 13:21 Ketorolac 30mg/Ml Vial IV 01/14/24 13:18 15 mg ONCE ONE Administration Methylprednisolone Sodium Succinate 125 mg 01/14/24 13:17 01/14/24 13:22 Methylprednisolone Sod Succ 125mg Vial IV 01/14/24 13:18 Not Given ONCE ONE Methylprednisolone Sodium Succinate 60 mg 01/14/24 13:19 01/14/24 13:21 Methylprednisolone Sod Succ 125mg Vial IV 01/14/24 13:20 60 mg ONCE ONE Administration Ondansetron HCl 4 mg 01/14/24 13:17 01/14/24 13:22 Ondansetron 4mg/2ml Vial IV 01/14/24 13:18 4 mg ONCE ONE Administration Sodium Chloride 500 ml 01/14/24 13:18 01/14/24 13:22 Sodium Chloride 0.9% 500ml Bag IV 01/14/24 13:19 500 ml ONCE ONE Administration Medical Decision Narrative: When reevaluated patient patient states she feels better now after the medicine and the IV fluids her headache is gone and her nausea has improved and she would like to go home.
[2024-01-14 14:06] VITALS: BP 111/47; PULSE 92; RESP 21; TEMP 36.9; O2SAT 100
== END 2024-01-14 14:16 | disposition home or self-care (01) ==
PROVIDERS: Emergency Provider Nurse Practitioner Family; PCP Student in an Organized Health Care Education/Training Program
DX: G43.909 Migraine, unspecified, not intractable, without status migrainosus (principal); R11.2 Nausea with vomiting, unspecified
CPT/HCPCS: 96374; 96375; 99213; G0381; J1885; J2405; J2919

== ENCOUNTER 2024-01-20 09:32 | Outpatient (CLI) | payer OTHER, SELFPAY ==
[2024-01-20 15:56] LABS: Coronavirus 19, PCR Not Detected (NotDetected); Influenza A, PCR Not Detected (NotDetected); Influenza B, PCR Not Detected (NotDetected)
== END 2024-01-20 23:59 | disposition home or self-care (01) ==
LOC: LAB.DROPOF 01-23 09:32
PROVIDERS: PCP Family Medicine; Visit Provider Family Medicine
DX: J02.9 Acute pharyngitis, unspecified (principal)
CPT/HCPCS: 87636

== ENCOUNTER 2024-02-08 14:47 | Outpatient (CLI) | payer OTHER, SELFPAY ==
[2024-02-08 18:14] LABS: Coronavirus 19, PCR Not Detected (NotDetected); Influenza A, PCR Not Detected (NotDetected); Influenza B, PCR Not Detected (NotDetected)
== END 2024-02-08 23:59 | disposition home or self-care (01) ==
LOC: LAB.DROPOF 02-09 10:23
PROVIDERS: PCP Family Medicine; Visit Provider Family Medicine
DX: J02.9 Acute pharyngitis, unspecified (principal); R50.9 Fever, unspecified
CPT/HCPCS: 87070; 87636

== ENCOUNTER 2024-03-19 16:20 | Outpatient (CLI) | payer OTHER, SELFPAY ==
--- NOTE | 2024-03-19 16:20 | MR_ITS ---
PROCEDURE INFORMATION: Exam: MR Head Without Contrast Exam date and time: 03/19/2024 5:02 PM Age: 33 years old Clinical indication: Pain; Headache; Migraine; With aura; Other: Unknown; Additional info: Persistent worsening migraines TECHNIQUE: Imaging protocol: Magnetic resonance imaging of the head without contrast. COMPARISON: CT HEAD/BRAIN WO CON 07/05/2019 3:45 AM FINDINGS: Brain: Brain parenchyma demonstrates normal signal intensity without an intra- or extra-axial mass or abnormality. No mass effect or midline shift. No evidence of restricted diffusion in the supra-or infratentorial brain. Cerebral ventricles: Ventricles and sulci are normal without evidence of hydrocephalus. Bones: Widening of the spinal canal from skull base to C4 with remodeling of the posterior margin of the vertebral bodies suspicious for dural ectasia. Chronic degenerative changes at C5-C6 with broad-based posterior disc herniation and osteophytes. Paranasal sinuses: [id number] chronic mucoperiosteal thickening in the visualized paranasal sinuses. Mastoid air cells: No mastoid effusion. Orbital cavities: NA Soft tissues: Midline brain structures including the corpus callosum, pituitary gland, pineal region, and craniovertebral junction are unremarkable. Intracranial vessels demonstrate a normal flow-void. IMPRESSION: 1. Normal study of the brain without acute hemorrhagic or ischemic infarct. 2. No evidence of supra-, infratentorial mass or abnormality. 3. 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 4. Subacute/chronic sinusitis.
== END 2024-03-19 23:59 | disposition home or self-care (01) ==
LOC: RAD 16:20
PROVIDERS: PCP Student in an Organized Health Care Education/Training Program; Visit Provider Student in an Organized Health Care Education/Training Program
DX: G43.909 Migraine, unspecified, not intractable, without status migrainosus (principal)
CPT/HCPCS: 70551

== ENCOUNTER 2024-04-15 12:59 | Outpatient (CLI) | payer OTHER, SELFPAY ==
[2024-04-15 20:30] LABS: Coronavirus 19, PCR Not Detected (NotDetected); Human Rhinovirus Not Detected (NotDetected); Influenza B, PCR Not Detected (NotDetected); Respiratory Syncytial Virus Not Detected (NotDetected)
[2024-04-15 23:43] LABS: Influenza A, PCR Detected (NotDetected)
== END 2024-04-15 23:59 | disposition home or self-care (01) ==
LOC: LAB.DROPOF 04-16 10:07
PROVIDERS: PCP Student in an Organized Health Care Education/Training Program; Visit Provider Student in an Organized Health Care Education/Training Program
DX: R05.9 Cough, unspecified (principal); R52 Pain, unspecified
CPT/HCPCS: 87631

== ENCOUNTER 2024-04-26 19:43 | Outpatient (CLI) | payer OTHER, SELFPAY ==
--- NOTE | 2024-04-26 19:50 | XR_ITS ---
PROCEDURE INFORMATION: Exam: XR Chest Exam date and time: 04/26/2024 7:51 PM Age: 33 years old Clinical indication: Cough; Additional info: Cough/chest congestion TECHNIQUE: Imaging protocol: Radiologic exam of the chest. Views: 2 views. COMPARISON: CR XR RIBS LT MIN 3V W CXR1V 05/06/2021 9:58 AM FINDINGS: Lungs: Bibasilar opacities compatible developing pneumonia. Pleural spaces: Unremarkable. No pleural effusion. No pneumothorax. Heart/Mediastinum: Unremarkable. No cardiomegaly. Bones/joints: Unremarkable. IMPRESSION: Bibasilar opacities compatible developing pneumonia.
== END 2024-04-26 23:59 | disposition home or self-care (01) ==
LOC: RAD 19:46
PROVIDERS: Visit Provider Nurse Practitioner
DX: R05.9 Cough, unspecified (principal); R09.89 Other specified symptoms and signs involving the circulatory and respiratory systems
CPT/HCPCS: 71046

== ENCOUNTER 2024-08-27 23:06 | Emergency (ER) | payer OTHER, SELFPAY ==
[2024-08-27 23:13] VITALS: BP 124/83; PULSE 74; RESP 14; TEMP 36.8; O2SAT 100; BMI 17.4
[2024-08-27 23:16] VITALS: BP 113/76; PULSE 71; O2SAT 99
[2024-08-27] MEDS: TET/DIPHTH/PERT-ADULT 0.5ML SYRINGE 0.5 ML IM (23:53)
[2024-08-28 00:12] LABS: Hematocrit 40.8 % (37.0-47.0); Hemoglobin 14.1 g/dL (12.2-16.2); Immature Granulocytes % 0.2 %; Mean Corpuscular HGB Conc 34.6 g/dL (31.8-35.4); Mean Corpuscular Hemoglobin 28.8 pg (27.0-31.2); Mean Corpuscular Volume 83.4 fl (81-99); Nucleated Red Blood Cells % 0 %; Platelet Count 237 K/mm3 (142-424); Red Blood Count 4.89 M/mm3 (4.20-5.40); Red Cell Distribution Width-SD 39.2 fL; White Blood Count 9.4 K/mm3 (4.8-10.8)
[2024-08-28 00:23] LABS: Activated Partial Thrombo Time 24.6 seconds (22.8-30.6); INR 1.05 (0.9-1.1); Prothrombin Time 11.6 seconds (10.1-12.5)
--- NOTE | 2024-08-28 00:28 | ED_ITS ---
Discharge Plan Disposition Patient Disposition: Home, Self-Care Prescriptions Prescriptions: New dolutegravir 50 mg tablet 50 mg PO DAILY Qty: 28 0RF emtricitabine-tenofovir (TDF) 200-300 mg tablet 1 tab PO DAILY Qty: 28 0RF No Action Qulipta 30 mg tablet 30 mg PO DAILY ondansetron 4 mg tablet,disintegrating 4 mg PO Q8H PRN (Reason: nausea and vomiting) Qty: 10 0RF Ubrelvy 100 mg tablet 100 mg PO ONCE PRN (Reason: migraine headache) Qty: 14 2RF fluticasone propion-salmeterol [Advair Diskus] 250-50 mcg/dose blister with device 1 ea INHALATION DAILY Qty: 60 1RF albuterol sulfate [Ventolin HFA] 90 mcg/actuation HFA aerosol inhaler 1 inh inhalation QID PRN (Reason: shortness of breath or wheezing) Qty: 8 1RF Referrals Follow up/Referrals: Marina Severino APRN [Primary Care Provider, Family Practice] - See instructions Activity Restrictions/Add. Instructions Additional Instructions/Restrictions: Please take HIV postexposure prophylaxis as prescribed. Please follow-up with your primary care provider for further assessment. Clinical Impressions Clinical Impression: Needle stick injury of finger Instructions Patient Instructions: DI for Skin Abscess Print Language Print Language: Guinean Discharge ED Provider: Tyler Knowles General Adult HPI General Chief complaint: Skin/Abscess/Foreign Body Stated complaint: needs bloodwork, poked with used needle Time Seen by Provider: 08/27/24 23:10 Mode of Arrival: Family Vehicle Source of Information: Patient Description of Symptoms (Recalled from ER Triage Doc. by RN): Dirty Needle Stick Pt presents to the ED with c/o of a dirty needle stick. Pt reports that she works at [employer] and accidently stuck herself with a used insulin needle when a resident was handing it back . Pt denies symptoms. History of Present Illness HPI narrative: 33-year-old female without reported past medical history presents for needlestick injury. She works at [employer] and was accidentally stuck by a used needle from a patient. She reports that she checked patient's chart and she did not see any positive HIV or hepatitis test, but there is no way for her to be sure or know how long ago or even if the patient was tested. This happened shortly prior to arrival. Denies any complaints at this time. Related Data Home Medications ?Medication ?Instructions ?Recorded ?Confirmed atogepant 30 mg tablet (Qulipta) 30 mg PO DAILY 08/26/24 Previous Rx's ?Medication ?Instructions ?Recorded ubrogepant 100 mg tablet (Ubrelvy) 100 mg PO ONCE PRN migraine 01/30/24 headache #14 tabs fluticasone 250 mcg-salmeterol 50 1 ea inhalation VERN Y #60 ea 02/02/24 mcg/dose blistr powdr for inhalation (Advair Diskus) Ventolin HFA 90 mcg/actuation 1 inh inhalation QID PRN shortness 05/02/24 aerosol inhaler (albuterol sulfate) of breath or wheez ing #8 grams ondansetron 4 mg disintegrating 4 mg PO Q8H PRN nausea and 08/26/24 tablet vomiting #10 tabs dolutegravir 50 mg tablet 50 mg PO DAILY #28 tabs 10/15 emtricitabine 200 mg-tenofovir 1 tab PO DAILY #28 tabs 08/28/24 disoproxil fumarate 300 mg tablet Allergies Allergy/AdvReac Type Severity Reaction Status Date / Time watermelon (WATERMELON) Allergy Unknown Verified 08/26/24 14:18 [facility] Disclaimer: The information contained in this section may have been updated after the patient was seen, as this information can be updated by other users. Medical History (Updated 08/28/24 @ 01:04 by Tyler Knowles MD) Nausea vomiting and diarrhea Bronchitis Depression Migraines Anxiety Asthma Surgical History History of tubal ligation Family History Other No significant family history Social History Smoking Status: Never smoker alcohol intake: never substance use type: denies use current occupational status: employed Travel in the last 8 weeks?: None household members: other housing: other Have you lived/traveled outside US in past 30 days?: No Contact w/someone who lives/traveled outside US past 30 days?: No Exposure to someone with infectious disease in past 14 days?: No Do you have a fever (greater than 100.4 F or 38 C)?: No Have you tested positive for COVID-19?: No Exposed to someone with COVID-19 in past 14 days?: No Do you have a sore throat?: No Do you have a cough?: No Do you have any weakness?: No Do you have any diarrhea?: No Are you experiencing any unusual bleeding?: No Do you have any muscle aches/pain?: No Do you have any abdominal pain?: No Are you experiencing loss of taste or smell?: No Other Medical History Have you received the Flu Vaccine for this season: No Have you received the Pneumonia Vaccine: No ROS Obtained: Yes All systems reviewed & no additional complaints except as documented Physical Exam General General appearance: alert and in no apparent distress Head Head exam: atraumatic and normocephalic Eye Eye exam: Present normal appearance, PERRL and EOMI ENT ENT exam: Present normal oropharynx and normal external ear exam Neck Neck exam: Present normal inspection and full ROM Chest Chest inspection: Present normal inspection and symmetric chest wall rise; Absent tenderness Respiratory Respiratory exam: Present normal lung sounds bilaterally; Absent respiratory distress Cardiovascular Cardiovascular exam: Present regular rate and normal rhythm Abdominal Exam Abdominal exam: Present soft; Absent distention, tenderness or guarding Extremities Exam Extremities exam: Present normal inspection; Absent edema or joint swelling Back Exam Back exam: Present normal inspection; Absent tenderness Neurological Exam Neurological exam: Present alert and oriented X3; Absent motor sensory deficit Psychiatric Psychiatric exam: Present normal affect and normal mood Skin Skin exam: Present warm, dry and normal color Lymphatic Lymphatic Findings: no adenopathy Medical Decision Making Medical Records Medical records reviewed: Yes I reviewed the patient's medical records. Screening: Per USPSTF and CDC recommendations, given the prevalence of disease in our region, it is our hospital?s policy to screen for HIV and viral Hepatitis for all patients aged 18 and over and those with ongoing risk factors. Quentin Inquiry Pt receiving controlled substance: No Quentin was queried for this patient: No Vital Signs: 08/27/24 23:13 08/27/24 23:16 Temperature 98.2 F Temperature Source Oral Pulse Rate 71 Pulse Rate [Right] 74 Respiratory Rate 14 Blood Pressure 113/76 Blood Pressure [Right Arm] 124/83 Blood Pressure Mean [Right Arm] 96 Blood Pressure Source [Right Arm] Automatic Cuff Blood Pressure Position [Right Arm] Sitting 02 Sat by Pulse Oximetry 100 99 Oxygen Delivery Method Room Air Lab Data Lab results reviewed: Yes I reviewed the patient's lab results. Lab Results 08/27/24 23:54: WBC 9.4, RBC 4.89, Hgb 14.1, Hct 40.8, MCV 83.4, MCH 28.8, MCHC 34.6, RDW 12.9, Plt Count 237, MPV 11.1 H, Neut % (Auto) 63.7, Lymph % (Auto) 26.2, [place] % (Auto) 6.0, Eos % (Auto) 3.2, Baso % (Auto) 0.7, Neut # (Auto) 6.0, Lymph # (Auto) 2.5, [place] # (Auto) 0.6, Eos # (Auto) 0.3, Baso # (Auto) 0.1, PT 11.6, INR 1.05, APTT 24.6, Sodium 139, Potassium 4.3, Chloride 100, Carbon Dioxide 27, Anion Gap 16.3 H, BUN 9, Creatinine 0.70, Estimated Creat Clear 74, Estimated GFR 97, Est GFR ( Amer) 117, Glucose 97, Calcium 9.8, Total Bilirubin 0.9, AST 23, ALT 16, Alkaline Phosphatase 58, Total Protein 7.6, Albumin 4.7, Globulin 2.9, Albumin/Globulin Ratio 1.6 08/27/24 23:54 08/27/24 23:54 Orders (Tests/Meds): ED MEDICATIONS Discontinued Medications Generic Name Dose Route Start Last Admin Trade Name Hannah PRN Reason Stop Dose Admin Hepatitis B Vaccine 0.5 ml 08/28/24 01:20 08/28/24 01:28 Hepatitis B Vacc Adm Fee (Ped) 0.5ml Inj IM 08/28/24 01:21 0.5 ml ONCE ONE Administration Tetanus/Reduced Diphtheria/Acell Pertussis 0.5 ml 08/27/24 23:34 08/27/24 23:53 Tet/Diphth/Pert-Adult 0.5ml Syringe IM 08/27/24 23:35 0.5 ml .ONCE ONE Administration ORDERS Category Date Time Status CBC w/Auto Diff [Complete Blood Count Auto Diff] Stat Lab 08/27/24 23:54 Completed CMP [Comprehensive Metabolic Panel] Stat Lab 08/27/24 23:54 Completed HIV Combo Stat Lab 08/27/24 23:54 Received Hep B Surface Ab, Qual Routine Lab 08/27/24 23:54 Received Hepatitis B surface antigen screen [HBsAg Screen] Stat Lab 08/27/24 23:54 Received Hepatitis C Ab Qual. W/ RFX Stat Lab 08/27/24 23:54 Received PT INR [Prothrombin Time INR] Stat Lab 08/27/24 23:54 Completed PTT [Activated Partial Thrombo Time] Stat Lab 08/27/24 23:54 Completed Medical Decision Narrative: 33-year-old female presents after a needlestick exposure while working at [employer].. History was obtained via interactive discussion with patient. On arrival, patient is [afebrile, hemodynamically stable, satting appropriately, alert, oriented x4, GCS 15], moving all extremities spontaneously. Full physical exam performed and significant for no significant physical exam abnormality Differential includes but is not limited to HIV, hep B, hep C, tetanus exposure. Workup initiated including CBC CMP hepatitis and HIV testing. On re-evaluation, patient [remains afebrile, HD stable.] Laboratory workup independently interpreted by me and significant for no significant abnormalities noted on basic labs. Serologic testing will not be back for quite a while. Interactive discussion was had with patient regarding her presentation. Given the unknown HIV and hepatitis status of the source, I offered the patient hepatitis B and HIV prophylaxis. Patient was given a dose of hepatitis B vaccine. I sent a prescription for dolutegravir and emtricitabine tenofovir for 28 days for coverage of HIV postexposure prophylaxis. Recommend she follow-up with her PCP for further assessment, recheck of labs. Procedures Risk/Benefits of Procedure(s) Were Explained: Yes Critical Care Critical Care Time Critical Care Time: No
--- NOTE | 2024-08-28 00:38 | PC.NURSE ---
2nd & 3rd toes taped together. Right foot was placed in a hard soled post-op shoe.
[2024-08-28 00:47] LABS: Alanine Aminotransferase 16 U/L (12-78); Albumin Level 4.7 g/dl (3.5-5.0); Albumin/Globulin Ratio 1.6 (1.1-1.8); Alkaline Phosphatase 58 U/L (38-126); Anion Gap 16.3 mEq/L (5-15); Aspartate Amino Transferase 23 U/L (14-36); Bilirubin,Total 0.9 mg/dl (0.2-1.3); Blood Urea Nitrogen 9 mg/dl (7-17); Calcium 9.8 mg/dl (8.4-10.2); Carbon Dioxide 27 mmol/L (22.0-30.0); Chloride 100 mmol/L (98-107); Creatinine Clearance Estimated 74 mL/min (50-200); Creatinine,Serum 0.70 mg/dl (0.52-1.04); Estimated Glomerular Filt Rate 97 ml/min (>60); GFR (African American) 117 ML/MIN (>60); Globulin 2.9 g/dL (1.3-3.2); Glucose 97 mg/dl (74-100); Potassium 4.3 mmoL/L (3.5-5.1); Sodium 139 mmol/L (136-145); Total Protein,Serum 7.6 g/dl (6.3-8.2)
[2024-08-28] MEDS: HEPATITIS B VACC ADM FEE (PED) 0.5ML INJ 0.5 ML IM (01:28)
[2024-08-28 01:33] VITALS: BP 113/71; PULSE 68; RESP 14; O2SAT 99
[2024-08-28 01:36] VITALS: BP 113/71; PULSE 68; RESP 14; TEMP 36.8; O2SAT 99
[2024-08-28 01:50] LABS: Hepatitis C Ab Qual. W/ RFX NEGATIVE (Negative)
[2024-08-29 09:14] LABS: Hepatitis B Surface Antigen Negative (Negative)
[2024-08-29 10:12] LABS: Hep B Surface Ab, Qual Non Reactive (.)
== END 2024-08-28 01:37 | disposition home or self-care (01) ==
PROVIDERS: Emergency Provider Emergency Medicine; PCP Nurse Practitioner Family
DX: S61.439A Puncture wound without foreign body of unspecified hand, initial encounter (principal); W46.1XXA Contact with contaminated hypodermic needle, initial encounter; Z11.59 Encounter for screening for other viral diseases; Z11.4 Encounter for screening for human immunodeficiency virus [HIV]; Z23 Encounter for immunization
CPT/HCPCS: 80053; 85025; 85610; 85730; 86706; 86803; 87340; 87389; 90471; 90715; 99283

== ENCOUNTER 2024-09-21 13:29 | Emergency (ER) | payer OTHER, SELFPAY ==
[2024-09-21 13:35] VITALS: BP 116/66; PULSE 72; RESP 14; TEMP 36.6; O2SAT 98; BMI 18.8
--- NOTE | 2024-09-21 14:09 | ED_ITS ---
Discharge Plan Disposition Patient Disposition: Home, Self-Care Prescriptions Prescriptions: New sulfamethoxazole-trimethoprim [Bactrim DS] 800-160 mg tablet 1 tab PO BID 7 Days Qty: 14 0RF No Action Qulipta 30 mg tablet 30 mg PO DAILY ondansetron 4 mg tablet,disintegrating 4 mg PO Q8H PRN (Reason: nausea and vomiting) Qty: 10 0RF amoxicillin 500 mg capsule 500 mg PO BID Qty: 20 0RF Ubrelvy 100 mg tablet 100 mg PO ONCE PRN (Reason: migraine headache) Qty: 14 2RF fluticasone propion-salmeterol [Advair Diskus] 250-50 mcg/dose blister with device 1 ea INHALATION BID Qty: 60 0RF albuterol sulfate [Ventolin HFA] 90 mcg/actuation HFA aerosol inhaler 1 inh inhalation QID PRN (Reason: shortness of breath or wheezing) Qty: 8 0RF dolutegravir 50 mg tablet 50 mg PO DAILY Qty: 28 0RF emtricitabine-tenofovir (TDF) 200-300 mg tablet 1 tab PO DAILY Qty: 28 0RF Referrals Follow up/Referrals: Marina Severino APRN [Primary Care Provider, Family Practice] - See instructions Activity Restrictions/Add. Instructions Additional Instructions/Restrictions: You likely have a skin infection around your right eye. Take the antibiotics as prescribed. You can also use the erythromycin ointment 3 times a day on your right eye to help with irritation. You can also take Benadryl to help with eye irritation and itching. If you develop any new or worsening symptoms, such as worsening swelling, vision changes, pain with movement of the eye, fevers, or protrusion of the eye, return to the emergency department for evaluation. Clinical Impressions Clinical Impression: Conjunctivitis, Preseptal cellulitis Print Language Print Language: Tamazight Discharge ED Provider: Alan Pandey General Adult HPI General Chief complaint: Eye Problems Stated complaint: right eye itching swollen and discharge Time Seen by Provider: 09/21/24 13:38 Mode of Arrival: Ambulatory Source of Information: Patient Description of Symptoms (Recalled from ER Triage Doc. by RN): pt c/o R eye itching and drainage ongoing since last night. pt is also reporting nasal drainage and congestion. History of Present Illness HPI narrative: Maryann Martinez is a 33-year-old female with no significant past medical history who presents to the emergency department for complaints of right eye itching and swelling. Patient states that she was in her normal state of health yesterday and then woke up with swelling to her upper eyelid and redness and itching of her eye. She denies any pain with movement of the eyes. She denies any vision changes or blurry vision. She states that she has had styes in the past but does not know if this is 1 of those. She denies any recent illnesses. Related Data Home Medications ?Medication ?Instructions ?Recorded ?Confirmed atogepant 30 mg tablet (Qulipta) 30 mg PO DAILY 09/09/24 Previous Rx's ?Medication ?Instructions ?Recorded ubrogepant 100 mg tablet (Ubrelvy) 100 mg PO ONCE PRN migraine 01/30/24 headache #14 tabs ondansetron 4 mg disintegrating 4 mg PO Q8H PRN nausea and 08/26/24 tablet vomiting #10 tabs dolutegravir 50 mg tablet 50 mg PO DAILY #28 tabs 10/15 emtricitabine 200 mg-tenofovir 1 tab PO DAILY #28 tabs 08/28/24 disoproxil fumarate 300 mg tablet amoxicillin 500 mg capsule 500 mg PO BID #20 caps 08/22 Ventolin HFA 90 mcg/actuation 1 inh inhalation QID PRN shortness 09/12/24 aerosol inhaler (albuterol sulfate) of breath or wheez ing #8 grams fluticasone 250 mcg-salmeterol 50 1 ea inhalation BID #60 ea 09/12/24 mcg/dose blistr powdr for inhalation (Advair Diskus) sulfamethoxazole 800 1 tab PO BID 7 days #14 tabs 09/21/24 mg-trimethoprim 160 mg tablet (Bactrim DS) Allergies Allergy/AdvReac Type Severity Reaction Status Date / Time watermelon (WATERMELON) Allergy Unknown Verified 09/09/24 15:06 [facility] Disclaimer: The information contained in this section may have been updated after the patient was seen, as this information can be updated by other users. Medical History (Updated 09/21/24 @ 14:07 by Alan Pandey MD) Strep throat Nausea vomiting and diarrhea Bronchitis Depression Migraines Anxiety Asthma Surgical History History of tubal ligation Family History Other No significant family history Social History Smoking Status: Never smoker alcohol intake: never substance use type: denies use current occupational status: employed Travel in the last 8 weeks?: None household members: other housing: other Have you lived/traveled outside [place] in past 30 days?: No Contact w/someone who lives/traveled outside US past 30 days?: No Exposure to someone with infectious disease in past 14 days?: No Do you have a fever (greater than 100.4 F or 38 C)?: No Have you tested positive for COVID-19?: No Exposed to someone with COVID-19 in past 14 days?: No Do you have a sore throat?: No Do you have a cough?: No Do you have any weakness?: No Do you have any diarrhea?: No Are you experiencing any unusual bleeding?: No Do you have any muscle aches/pain?: No Do you have any abdominal pain?: No Are you experiencing loss of taste or smell?: No Other Medical History Have you received the Flu Vaccine for this season: No Have you received the Pneumonia Vaccine: No ROS Obtained: Yes Systems reviewed as appropriate & no additional complaints except as documented Physical Exam General General appearance: alert and in no apparent distress Head Head exam: atraumatic Eye Eye exam: Present other (R. eye: Mild swelling and erythema to the upper eyelid. Extraocular muscles intact without pain. Pupils equal round reactive to light. Conjunctive does appear injected. Clear drainage noted. Eyelids were everted and no foreign bodies appreciated) ENT ENT exam: Present normal external ear exam Neck Neck exam: Present full ROM Chest Chest inspection: Present symmetric chest wall rise Respiratory Respiratory exam: Present normal lung sounds bilaterally; Absent respiratory distress Cardiovascular Cardiovascular exam: Present regular rate and normal rhythm Abdominal Exam Abdominal exam: Present soft; Absent tenderness or guarding Extremities Exam Extremities exam: Present normal inspection Back Exam Back exam: Present normal inspection Neurological Exam Neurological exam: Present alert and oriented X3 Psychiatric Psychiatric exam: Present normal affect Skin Skin exam: Present warm and dry Medical Decision Making Medical Records Screening: Per USPSTF and CDC recommendations, given the prevalence of disease in our region, it is our hospital?s policy to screen for HIV and viral Hepatitis for all patients aged 18 and over and those with ongoing risk factors. Quentin Inquiry Pt receiving controlled substance: No Vital Signs: 09/21/24 13:35 09/21/24 14:22 Temperature 97.9 F 98.0 F Temperature Source Oral Oral Pulse Rate 70 Pulse Rate [Left] 72 Respiratory Rate 14 16 Blood Pressure 110/60 Blood Pressure [Right Arm] 116/66 Blood Pressure Mean [Right Arm] 82 Blood Pressure Source Automatic Cuff Blood Pressure Source [Right Arm] Automatic Cuff Blood Pressure Position Sitting Blood Pressure Position [Right Arm] Sitting 02 Sat by Pulse Oximetry 98 Oxygen Delivery Method Room Air Room Air Orders (Tests/Meds): ED MEDICATIONS Discontinued Medications Generic Name Dose Route Start Last Admin Trade Name Freq PRN Reason Stop Dose Admin Erythromycin 1 gm 09/21/24 13:43 09/21/24 14:20 Erythromycin Base 1 Gm Oint...G. OP 09/21/24 13:44 1 gm ONCE ONE Administration Medical Decision Narrative: Maryann Martinez is a 33-year-old female with no significant past medical history who presents to the emergency department for complaints of right eye itching and swelling. Patient states that she was in her normal state of health yesterday and then woke up with swelling to her upper eyelid and redness and itching of her eye. She denies any pain with movement of the eyes. She denies any vision changes or blurry vision. She states that she has had styes in the past but does not know if this is 1 of those. She denies any recent illnesses. On arrival, patient is hemodynamically stable, afebrile, breathing comfortably on room air with appropriate oxygen saturation. Physical exam, stated above, reveals an overall well-appearing female in no distress. She has swelling to her right upper eyelid with some mild erythema in this area. Her conjunctival is injected. Extraocular movements are intact without pain. No proptosis. Pupils equal round reactive to light. Differential diagnosis includes, but is not limited to: Preseptal cellulitis, hordeolum, chalazion, bacterial/viral/allergic conjunctivitis. Low concern for orbital cellulitis as patient has no pain with extraocular movements and no proptosis. No indication for CT imaging at this time. Given she is afebrile with reassuring vital signs, no lab work is indicated at this time as there is low concern for sepsis or other significant electrolyte derangements. There could be an aspect of preseptal cellulitis given the redness in the area, however could also be bacterial conjunctivitis with the conjunctival erythema. I would abundance of caution, will treat with oral antibiotics as well as erythromycin ointment. Patient was given a course of Bactrim and erythromycin was provided to her in the emergency department. She was given strict return precautions for any worsening of her symptoms or signs concerning for orbital cellulitis. All questions were answered. She demonstrated understanding and w as in agreement this plan. She was then discharged with the emergency department in stable condition Critical Care Critical Care Time Critical Care Time: No
[2024-09-21] MEDS: ERYTHROMYCIN BASE 1 GM OINT...G. OP (14:20)
[2024-09-21 14:22] VITALS: BP 110/60; PULSE 70; RESP 16; TEMP 36.7; O2SAT 99
== END 2024-09-21 14:23 | disposition home or self-care (01) ==
PROVIDERS: Emergency Provider Student in an Organized Health Care Education/Training Program; PCP Nurse Practitioner Family
DX: L03.213 Periorbital cellulitis (principal); H10.31 Unspecified acute conjunctivitis, right eye
CPT/HCPCS: 99283

== ENCOUNTER 2024-11-14 17:14 | Emergency (ER) | payer OTHER, SELFPAY ==
[2024-11-14 17:24] VITALS: BP 91/57; PULSE 76; RESP 14; TEMP 36.8; O2SAT 100; BMI 16.9
[2024-11-14 17:39] LABS: Microscopic, Urine URINE MICROSCOPIC (MICROSCOPIC)
[2024-11-14 18:01] LABS: Bilirubin,Urine Negative (Negative); Color,Urine YELLOW (Yellow); Glucose,Urine (UA) Negative (Negative); Ketones,Urine Negative (Negative); Leukocyte Esterase,Urine TRACE (Negative); PH,Urine 6.0 (5.0-8.5); Protein,Urine Negative (Negative); Specific Gravity, Urine 1.025 (1.005-1.030); Urobilinogen,Urine 0.2 EU/dl (0.2)
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
--- NOTE | 2024-11-14 18:15 | CT_ITS ---
PROCEDURE INFORMATION: Exam: CT Abdomen And Pelvis With Contrast Exam date and time: 11/14/2024 7:40 PM Age: 34 years old Clinical indication: Other: Evlauate for hernia in L groin, HX of previous TECHNIQUE: Imaging protocol: Computed tomography of the abdomen and pelvis with contrast. Radiation optimization: All CT scans at this facility use at least one of these dose optimization techniques: automated exposure control; mA and/or kV adjustment per patient size (includes targeted exams where dose is matched to clinical indication); or iterative reconstruction. Contrast material: ISOVUE; Contrast volume: 75 ml; Contrast route: IV; COMPARISON: CT ABDOMEN PELVIS W CON 07/05/2019 3:56 AM FINDINGS: Liver: Normal. No mass. Gallbladder and biliary ducts: Normal. No calcified stones. No ductal dilation. Pancreas: Normal. No ductal dilation. Spleen: Normal. No splenomegaly. Adrenal glands: Normal. No mass. Kidneys and ureters: Normal. No hydronephrosis. Stomach and bowel: Unremarkable. No obstruction. No mucosal thickening. Appendix: No evidence of appendicitis. Intraperitoneal space: Unremarkable. No free air. No significant fluid collection. Vasculature: Unremarkable. No abdominal aortic aneurysm. Lymph nodes: There is moderate asymmetric lymphadenopathy in the left inguinal region. No other areas of lymphadenopathy evident. Urinary bladder: Unremarkable as visualized. Reproductive: Diffusely heterogeneous appearance of the uterine myometrium again noted. There has been interval development of a 3 cm masslike area of hypoattenuation in the uterine fundus. Endometrial thickness measures approximately 17 mm. No significant adnexal abnormality. Bones/joints: Unremarkable. No acute fracture. Soft tissues: Unremarkable. IMPRESSION: 1. Moderate left inguinal lymphadenopathy presumably due to localized infectious/inflammatory process. No other lymphadenopathy evident. No evidence of hernia. 2. Heterogeneous appearance of the uterus with interval development of 3 cm masslike area of low attenuation in the uterine fundus. Differential diagnosis would include uterine adenomyosis versus leiomyomatous changes. Myometrial abscess would also be of consideration, although considered less likely. Consider correlation with pelvic ultrasound.
[2024-11-14 18:30] VITALS: BP 109/66; PULSE 74; O2SAT 100
[2024-11-14 19:02] LABS: Bacteria,Urine 2+ /lpf
[2024-11-14 19:10] LABS: Hematocrit 39.3 % (37.0-47.0); Hemoglobin 13.5 g/dL (12.2-16.2); Immature Granulocytes % 0.2 %; Mean Corpuscular HGB Conc 34.4 g/dL (31.8-35.4); Mean Corpuscular Hemoglobin 29.2 pg (27.0-31.2); Mean Corpuscular Volume 85.1 fl (81-99); Nucleated Red Blood Cells % 0 %; Platelet Count 233 K/mm3 (142-424); Red Blood Count 4.62 M/mm3 (4.20-5.40); Red Cell Distribution Width-SD 39.2 fL; White Blood Count 9.8 K/mm3 (4.8-10.8)
[2024-11-14] MEDS: MORPHINE 4MG/ML SYRINGE 4 MG IV (19:21)
[2024-11-14] MEDS: ONDANSETRON 4MG/2ML VIAL 4 MG IV (19:21)
[2024-11-14 19:33] LABS: HCG Qualitative, Serum Negative (Negative)
[2024-11-14 19:34] LABS: Albumin Level 4.8 g/dl (3.5-5.0); Chloride 103 mmol/L (98-107); Potassium 4.3 mmoL/L (3.5-5.1); Sodium 139 mmol/L (136-145)
[2024-11-14 19:37] LABS: Alanine Aminotransferase 20 U/L (12-78); Albumin/Globulin Ratio 1.6 (1.1-1.8); Alkaline Phosphatase 62 U/L (38-126); Anion Gap 15.3 mEq/L (5-15); Aspartate Amino Transferase 29 U/L (14-36); Bilirubin,Total 0.6 mg/dl (0.2-1.3); Blood Urea Nitrogen 10 mg/dl (7-17); Carbon Dioxide 25 mmol/L (22.0-30.0); Creatinine Clearance Estimated 83 mL/min (50-200); Creatinine,Serum 0.60 mg/dl (0.52-1.04); Estimated Glomerular Filt Rate 115 ml/min (>60); GFR (African American) 139 ML/MIN (>60); Globulin 3.0 g/dL (1.3-3.2); Total Protein,Serum 7.8 g/dl (6.3-8.2)
[2024-11-14 19:38] LABS: Calcium 9.9 mg/dl (8.4-10.2); Glucose 101 mg/dl (74-100)
[2024-11-14] MEDS: IOPAMIDOL-370 (76%);100ML BOTTLE 75 ML IV (19:40)
[2024-11-14] MEDS: SODIUM CHLORIDE 0.9% 10ML SYR (RAD ONLY) 10 ML IV (19:40)
--- NOTE | 2024-11-14 20:09 | PC.NURSE ---
rounded on pt, pt does not need anything at this time. call light within reach.
[2024-11-14 23:41] VITALS: BP 120/87; PULSE 80; RESP 20; TEMP 36.8; O2SAT 98
== END 2024-11-14 23:54 | disposition home or self-care (01) ==
PROVIDERS: Emergency Provider Student in an Organized Health Care Education/Training Program; PCP Nurse Practitioner Family
DX: R10.32 Left lower quadrant pain (principal); R59.0 Localized enlarged lymph nodes; W50.0XXA Accidental hit or strike by another person, initial encounter
CPT/HCPCS: 74177; 80053; 81001; 84703; 85025; 87086; 96374; 96375; 99283; 99284; J2270; J2405; Q9967

== ENCOUNTER 2024-11-20 15:55 | Outpatient (CLI) | payer OTHER, SELFPAY ==
--- NOTE | 2024-11-20 16:00 | US_ITS ---
PROCEDURE: US TRANSVAGINAL CLINICAL INDICATION: Abnormal CT Scan-possibel uterine mass COMPARISON: CT CT ABDOMEN PELVIS W CON from 11/14/2024 FINDINGS: Transvaginal sonographic images of the pelvis were obtained. UTERUS: 10.1cm x 5.6cmx 4.4cm anteverted with a combined endometrial thickness of 5.3mm. The myometrium appears heterogenous. LEFT OVARY: 3.3cmx2.3cmx2.2cm with a volume of 8.8ml. There are multiple small peripheral follicles. RIGHT OVARY: 3.6 cmx 2.8 cmx1.9 cm with a volume of 9.9ml. There are multiple small peripheral follicles. Both ovaries are seen and appear normal. Doppler flow to both ovaries are seen. There is a small amount of fluid in the cul-de-sac. IMPRESSION: 1. Anteverted, bulky uterus. The endometrium appears normal. The myometrium appears heterogenous but there is no evidence of a fibroid as suggested in the recent CT scan. 2. Both ovaries are seen and appear polycystic. 3. There is small amount of fluid in the cul-de-sac. Dictated by: Rogerio Alfaro MD 11/20/2024 17:03 Rogerio Alfaro MD in [place] 11/20/2024 17:03
== END 2024-11-20 23:59 | disposition home or self-care (01) ==
LOC: RAD 15:55
PROVIDERS: PCP Nurse Practitioner Family; Visit Provider Obstetrics & Gynecology
DX: N85.2 Hypertrophy of uterus (principal); E28.2 Polycystic ovarian syndrome; R93.89 Abnormal findings on diagnostic imaging of other specified body structures; R93.5 Abnormal findings on diagnostic imaging of other abdominal regions, including retroperitoneum; R10.30 Lower abdominal pain, unspecified
CPT/HCPCS: 76830

== ENCOUNTER 2024-12-10 12:55 | Outpatient (CLI) | payer OTHER, SELFPAY ==
[2024-12-10 20:26] LABS: Coronavirus 19, PCR Not Detected (NotDetected); Influenza A, PCR Not Detected (NotDetected); Influenza B, PCR Not Detected (NotDetected)
== END 2024-12-10 23:59 ==
LOC: LAB.DROPOF 12-12 12:56
PROVIDERS: PCP Nurse Practitioner Family; Visit Provider Nurse Practitioner
DX: J02.9 Acute pharyngitis, unspecified (principal); R50.9 Fever, unspecified
CPT/HCPCS: 87631

== ENCOUNTER 2024-12-26 14:48 | Outpatient (CLI) | payer OTHER, SELFPAY ==
--- NOTE | 2024-12-26 14:57 | XR_ITS ---
FINAL REPORT CLINICAL HISTORY: ASTHMA, COUGH/CONGESTION X 3 DAYS COMPARISON: 06/07/2015 FINDINGS: PA and lateral views of the chest was performed. The heart and mediastinum are normal. The hilar regions are unremarkable. The lungs are well expanded. There is no bronchial thickening. There is no pneumomediastinum. There is no infiltrate or edema. There are no pleural effusions. The bony thorax appears intact. IMPRESSION: No acute cardiopulmonary process. Reviewed, Interpreted and Dictated by Sudarshan Sanchez MD Transcribed by Lolita Pal Authenticated and [facility]
[2024-12-26 15:16] LABS: Hematocrit 40.5 % (37.0-47.0); Hemoglobin 13.7 g/dL (12.2-16.2); Immature Granulocytes % 0.1 %; Mean Corpuscular HGB Conc 33.8 g/dL (31.8-35.4); Mean Corpuscular Hemoglobin 28.6 pg (27.0-31.2); Mean Corpuscular Volume 84.6 fl (81-99); Nucleated Red Blood Cells % 0 %; Platelet Count 209 K/mm3 (142-424); Red Blood Count 4.79 M/mm3 (4.20-5.40); Red Cell Distribution Width-SD 38.2 fL; White Blood Count 7.6 K/mm3 (4.8-10.8)
[2024-12-26 15:40] LABS: Albumin Level 5.2 g/dl (3.5-5.0); Chloride 104 mmol/L (98-107)
[2024-12-26 15:41] LABS: Potassium 4.2 mmoL/L (3.5-5.1); Sodium 140 mmol/L (136-145)
[2024-12-26 15:43] LABS: Alanine Aminotransferase 16 U/L (12-78); Albumin/Globulin Ratio 2.3 (1.1-1.8); Alkaline Phosphatase 85 U/L (38-126); Anion Gap 12.2 mEq/L (5-15); Aspartate Amino Transferase 24 U/L (14-36); Bilirubin,Total 0.6 mg/dl (0.2-1.3); Blood Urea Nitrogen 8 mg/dl (7-17); Carbon Dioxide 28 mmol/L (22.0-30.0); Creatinine,Serum 0.70 mg/dl (0.52-1.04); Estimated Glomerular Filt Rate 96 ml/min (>60); GFR (African American) 117 ML/MIN (>60); Globulin 2.3 g/dL (1.3-3.2); Total Protein,Serum 7.5 g/dl (6.3-8.2)
[2024-12-26 15:44] LABS: Calcium 9.5 mg/dl (8.4-10.2); Cholesterol 141 mg/dl (140-200); Glucose 87 mg/dl (74-100); HDL Cholesterol 74 mg/dl (40-60); Magnesium 1.9 mg/dl (1.6-2.3); Triglycerides 27 mg/dl (30-150)
[2024-12-26 16:01] LABS: Troponin I < 0.01 ng/ml (0.00-0.034)
[2024-12-26 16:18] LABS: Thyroid Stimulating Hormone 0.93 uIU/mL (0.465-4.68)
[2024-12-26 16:22] LABS: Ferritin 42.8 ng/ml (6.24-137)
[2024-12-26 16:56] LABS: Vitamin B12 801 pg/mL (239-931)
== END 2024-12-26 23:59 | disposition home or self-care (01) ==
LOC: LAB 14:48
PROVIDERS: PCP Nurse Practitioner Family; Visit Provider Nurse Practitioner Family
DX: J45.909 Unspecified asthma, uncomplicated (principal); D64.9 Anemia, unspecified; G43.909 Migraine, unspecified, not intractable, without status migrainosus; R00.2 Palpitations; R07.9 Chest pain, unspecified
CPT/HCPCS: 36415; 71046; 80053; 80061; 82607; 82728; 83735; 84443; 84484; 85025